=== PATIENT | female | born 1950 | race Caucasian/White ===

== ENCOUNTER 2017-06-17 23:55 | Day surgery (SDC) | payer OTHER ==
[~2017-06-17] VITALS: Ht 163.8 cm; Wt 56.7 kg
[2017-06-18] MEDS ORDERED: THIAMINE INJECTION 100 MG, FOLIC ACID INJECTION 1 MG, VITAMIN MULTI INJECTION 10 ML, MA... IV STA ×5
[2017-06-18] MEDS ORDERED: MAGNESIUM SULFATE 1 GM/2 ML VIAL ONE (00:03)
[2017-06-18] MEDS ORDERED: NS IV 1000 ML 0 ML ONE (00:03)
[2017-06-18] MEDS ORDERED: FOLIC ACID 1 MG/0.2 ML SYR (ED) ONE (00:04)
[2017-06-18] MEDS ORDERED: THIAMINE 100 MG/ML 2 ML (VITAMIN B-1) VIAL ONE (00:04)
[2017-06-18] MEDS ORDERED: D5 1/2 NS W/KCL 20 MEQ/L 1,000 ML IV ONE (00:05)
[2017-06-18] MEDS ORDERED: VITAMIN MULTI- 12 INJECTION 10 ML VIAL IV ONE (00:06)
--- NOTE | 2017-06-18 00:07 | ED Lower Extremity ---
General Chief Complaint: Trauma-Non Activation Stated Complaint: FALL Source: patient, EMS Exam Limitations: no limitations History of Present Illness Time seen by provider: 00:00 Initial Comments Patient present to ER by EMS with chief complaint of just prior to arrival tripping in her backyard falling having a lot of pain in her right lower leg. She is a history of a fracture in her shoulder years ago. No other significant medical history other than blood pressure for which she takes atenolol and amlodipine. She does smoke and she is been drinking tonight she says her last drink was about 3 hours ago however she is quite well controlled with her pain and EMS reports that not had to give her any pain medicine as lungs and move her leg. She has obvious deformity, swelling and crepitus in her right tibia- fibula according to EMS. Allergies and Home Medications Allergies Coded Allergies: No Known Allergies (Verified Allergy, Unknown, 02/19/07) Home Medications Amlodipine Besylate 5 Mg Tablet, 5 MG PO DAILY, (Reported) Lisinopril 20 Mg Tablet, 20 MG PO DAILY, (Reported) Metoprolol Tartrate 25 Mg Tablet, 25 MG PO BID, (Reported) Constitutional: see HPI, No chills, No diaphoresis EENTM: No ear pain, No eye pain Respiratory: No cough, No short of breath Cardiovascular: No chest pain, No palpitations Gastrointestinal: No abdominal pain, No constipation, No diarrhea, No nausea, No vomiting Genitourinary: No discharge, No dysuria : No Control/STD Prophylaxis: None Musculoskeletal: see HPI, No back pain, No joint pain Skin: No pruritus, No rash Psychiatric/Neurological: Denies Headache, Denies Numbness Past Ahyqzug-Cwrudx-Blgbqu Hx Patient Social History Alcohol Use: Regular Use (last drink 3 hours ago) Recreational Drug Use: No Smoking Status: Current Everyday Smoker Type Used: Cigarettes Reproductive System Hx Reproductive Disorders: No Physical Exam Vital Signs Vital Sign - Last 12Hours 06/17/17 23:59 Temp 98.7 Pulse 74 Resp 18 B/P (MAP) 144/105 Pulse Ox 93 Capillary Refill : General Appearance: WD/WN, no apparent distress (pleasant, inebriated) HEENT: PERRL/EOMI, TMs normal, pharynx normal Neck: non-tender, full range of motion, supple, normal inspection Cardiovascular: normal peripheral pulses, regular rate, rhythm, no edema Respiratory: chest non-tender, lungs clear, normal breath sounds Gastrointestinal: non tender, soft Hips: bilateral hip non-tender, bilateral hip normal inspection, bilateral hip normal range of motion Legs: left leg non-tender, left leg normal inspection, left leg normal range of motion, left leg no evidence of injury, right leg bone tenderness, right leg deformity, right leg ecchymosis, right leg pain, right leg soft tissue tenderness, right leg swelling (obvious deformity and crepitus and lateral deviation of the foot.) Knees: bilateral knee non-tender, bilateral knee normal inspection, bilateral knee normal range of motion, bilateral knee no evidence of injury Ankles: bilateral ankle non-tender, bilateral ankle normal inspection, bilateral ankle normal range of motion, bilateral ankle no evidence of injury Feet: bilateral foot non-tender, bilateral foot normal inspection, bilateral foot normal range of motion, bilateral foot no evidence of injury (good pulses and sensation intact) Neurologic/Tendon: normal sensation, normal motor functions, normal tendon functions, responds to pain Neurologic/Psychiatric: no motor/sensory deficits, alert, oriented x 3 Skin: normal color, warm/dry, ecchymosis Progress/Results/Core Measures Results/Orders Lab Results Laboratory Tests Test 06/18/17 00:25 Range/Units My Orders Orders - YVON DANIELS Alcohol (06/18/17 00:00) Cbc With Automated Diff (06/18/17 00:00) Comprehensive Metabolic Panel (06/18/17 00:00) Drug Screen Stat (Urine) (06/18/17 00:00) Magnesium (06/18/17 00:00) Ua Culture If Indicated (06/18/17 00:00) Tibia/Fibula, Right, 2 Views (06/18/17 00:00) Saline Lock/Iv-Start (06/18/17 00:00) Thiamine Injection (Vitamin B-1 Injectio (06/18/17 00:00) Ns Iv 1000 Ml (Sodium Chloride 0.9%) (06/18/17 00:03) Magnesium Sulfate Inj (Magnesium Sulfate (06/18/17 00:03) Folic Acid Syr (Ed) (Folic Acid Syr (Ed) (06/18/17 00:04) Thiamine Injection (Vitamin B-1 Injectio (06/18/17 00:04) D5 1/2 Ns W/Kcl 20 Meq/L (Dextrose 5%/0. (06/18/17 00:05) Vitamin Multi Injection (Mvi 12 Injectio (06/18/17 00:06) Medications Given in ED Current Medications Medications Dose Ordered Sig/Daphne Route Start Time Stop Time Status Last Admin Dose Admin Folic Acid 1 mg STK-MED ONCE .ROUTE 06/18/17 00:04 06/18/17 00:13 DC 06/18/17 00:18 1 MG Magnesium Sulfate 1 gm STK-MED ONCE .ROUTE 06/18/17 00:03 06/18/17 00:13 DC 06/18/17 00:19 2 GM Multivitamins 10 ml STK-MED ONCE IV 06/18/17 00:06 06/18/17 00:13 DC 06/18/17 00:19 10 ML Potassium Chloride/Dextrose/ Sod Cl 1,000 ml @ ud STK-MED ONCE IV 06/18/17 00:05 06/18/17 00:13 DC 06/18/17 00:18 125 MLS/HR Thiamine HCl 200 mg STK-MED ONCE .ROUTE 06/18/17 00:04 06/18/17 00:13 DC 06/18/17 00:18 100 MG Vital Signs/I&O Vital Sign - Last 12Hours 06/17/17 23:59 Temp 98.7 Pulse 74 Resp 18 B/P (MAP) 144/105 Pulse Ox 93 Diagnostic Imaging Diagonstic Imaging: Xray Plain Films/CT/US/NM/MRI: leg (right lower leg) Comments Distal tibia marginally displaced non-open fracture with a proximal fibular shaft fracture nondisplaced. Closed. Reviewed: Reviewed by Me Consults Consults : Consulting Physician: LATANYA ZAMBRANO MD Consults Notes Discussed the case and because the patient's alcohol intoxication he is okay with the splinting her and putting her in under his name and he will come and see her in the morning. Departure Communication Time/Spoke to Admitting Phy: 00:[address] Zambrano. He will see the patient in the morning. Impression Impression: Primary Impression: Tibia/fibula fracture, shaft Qualified Codes: S82.201A - Unspecified fracture of shaft of right tibia, initial encounter for closed fracture; S82.401A - Unspecified fracture of shaft of right fibula, initial encounter for closed fracture Disposition: ADMITTED INPATIENT Condition: Stable Admissions Decision to Admit Reason: Admit from ER (Trauma) Decision to Admit/Date: Jun 18, 2017 Time/Decision to Admit Time: 00:42 Departure-Patient Inst. Referrals: NO,LOCAL PHYSICIAN (PCP/Family) Primary Care Physician Copy Copies To 1: LATANYA ZAMBRANO MD, TITUS J Jun 18, 2017 00:07
[2017-06-18] MEDS ORDERED: LISI-552 PO (00:31)
[2017-06-18] MEDS ORDERED: AMLO5TAB4 PO (00:31)
[2017-06-18] MEDS ORDERED: METO-333 PO (00:32)
[2017-06-18 00:36] LABS: BASOPHILS % (AUTO) 0 % (0-10); EOSINOPHILS % (AUTO) 0 % (0-10); LYMPHOCYTES # (AUTO) 1.3 X 10^3 (1.0-4.0); LYMPHOCYTES % (AUTO) 15 % (12-44); MEAN CORPUSCULAR HEMOGLOBIN 32 PG (25-34); MEAN CORPUSCULAR HGB CONC 35 G/DL (32-36); MEAN CORPUSCULAR VOLUME 92 FL (80-99); MEAN PLATELET VOLUME 9.4 FL (7.4-10.4); MONOCYTES # (AUTO) 0.9 X 10^3 (0.0-1.0); MONOCYTES % (AUTO) 11 % (0-12); NEUTROPHILS # (AUTO) 6.6 X 10^3 (1.8-7.8); NEUTROPHILS % (AUTO) 74 % (42-75); PLATELET COUNT 226 10^3/uL (130-400); RED CELL DISTRIBUTION WIDTH 12.2 % (10.0-14.5); WHITE BLOOD COUNT 8.9 10^3/uL (4.3-11.0)
[2017-06-18 00:37] LABS: BILIRUBIN,URINE NEGATIVE (NEGATIVE); KETONES,URINE NEGATIVE (NEGATIVE); LEUKOCYTE ESTERASE ,URINE 1+ (NEGATIVE); NITRITE,URINE NEGATIVE (NEGATIVE); PH,URINE 6 (5-9); PROTEIN,URINE 1+ (NEGATIVE); UROBILINOGEN,URINE NORMAL (NORMAL)
[2017-06-18 00:51] LABS: SQUAMOUS EPITHELIAL CELL,UR RARE /HPF; WBC,URINE RARE /HPF
[2017-06-18 00:56] LABS: ALANINE AMINOTRANSFERASE 53 U/L (0-55); ALCOHOL 187 MG/DL (<10); ANION GAP 15 MMOL/L (5-14); ASPARTATE AMINO TRANSFERASE 59 U/L (5-34); BILIRUBIN,TOTAL 0.7 MG/DL (0.1-1.0); BLOOD UREA NITROGEN 6 MG/DL (7-18); BUN/CREATININE RATIO 10; CALCIUM 9.1 MG/DL (8.5-10.1); CARBON DIOXIDE 22 MMOL/L (21-32); CHLORIDE 90 MMOL/L (98-107); CREATININE SERUM 0.62 MG/DL (0.60-1.30); GFR ESTIMATED > 60; GLUCOSE 124 MG/DL (70-105); MAGNESIUM 1.4 MG/DL (1.8-2.4); POTASSIUM 3.6 MMOL/L (3.6-5.0); SODIUM 127 MMOL/L (135-145); TOTAL PROTEIN 8.2 GM/DL (6.4-8.2)
[2017-06-18 01:52] LABS: INR 0.9 (0.8-1.4); PROTHROMBIN TIME PATIENT 12.1 SEC (12.2-14.7)
[2017-06-18] MEDS ORDERED: NS IV 1000 ML 1,000 ML ONE (02:32)
[2017-06-18] MEDS ORDERED: 1/2 NS IV SOLUTION 1,000 ML IV PRN (03:57)
[2017-06-18 04:00] VITALS: BP 108/55
[2017-06-18] MEDS ORDERED: ANTACID SUSP 30 ML UDC (MYLANTA) PO PRN (04:00)
[2017-06-18] MEDS ORDERED: NS IV 1000 ML 1,000 ML IV SCH (04:00)
[2017-06-18] MEDS ORDERED: fentaNYL INJECTION 100 MCG/2 ML AMP IV PRN (04:00)
[2017-06-18] MEDS ORDERED: LORazepam INJ 2 MG/ML (ATIVAN) VIAL IV PRN (04:00)
[2017-06-18] MEDS ORDERED: D5 1/2 NS 1000 ML IV SOLUTION 1,000 ML IV PRN (04:00)
[2017-06-18] MEDS ORDERED: ONDANSETRON 4 MG (ZOFRAN) ORAL DISSOLVE TAB SL PRN (04:00)
[2017-06-18] MEDS ORDERED: SENNA W/DOCUSATE (SENOKOT S) TABLET PO PRN (04:00)
[2017-06-18] MEDS ORDERED: ONDANSETRON 4 MG/2 ML (SDV) Z0FRAN IV PRN ×3 (04:00→11:45)
[2017-06-18] MEDS ORDERED: LORazepam INJ 2 MG/ML (ATIVAN) VIAL IM/IV PRN (04:00)
[2017-06-18] MEDS ORDERED: LORazepam 1 MG (ATIVAN) TAB PO PRN (04:00)
[2017-06-18 05:13] LABS: BASOPHILS % (AUTO) 0 % (0-10); EOSINOPHILS % (AUTO) 0 % (0-10); LYMPHOCYTES # (AUTO) 1.1 X 10^3 (1.0-4.0); LYMPHOCYTES % (AUTO) 15 % (12-44); MEAN CORPUSCULAR HEMOGLOBIN 32 PG (25-34); MEAN CORPUSCULAR HGB CONC 35 G/DL (32-36); MEAN CORPUSCULAR VOLUME 92 FL (80-99); MEAN PLATELET VOLUME 9.3 FL (7.4-10.4); MONOCYTES # (AUTO) 1.1 X 10^3 (0.0-1.0); MONOCYTES % (AUTO) 15 % (0-12); NEUTROPHILS # (AUTO) 5.2 X 10^3 (1.8-7.8); NEUTROPHILS % (AUTO) 70 % (42-75); PLATELET COUNT 208 10^3/uL (130-400); RED BLOOD COUNT 3.98 10^6/uL (4.35-5.85); RED CELL DISTRIBUTION WIDTH 12.2 % (10.0-14.5); WHITE BLOOD COUNT 7.4 10^3/uL (4.3-11.0)
[2017-06-18 05:34] LABS: ANION GAP 12 MMOL/L (5-14); BLOOD UREA NITROGEN 5 MG/DL (7-18); BUN/CREATININE RATIO 9; CALCIUM 8.7 MG/DL (8.5-10.1); CARBON DIOXIDE 23 MMOL/L (21-32); CHLORIDE 97 MMOL/L (98-107); CREATININE SERUM 0.57 MG/DL (0.60-1.30); GFR ESTIMATED > 60; GLUCOSE 62 MG/DL (70-105); POTASSIUM 3.3 MMOL/L (3.6-5.0); SODIUM 132 MMOL/L (135-145)
--- NOTE | 2017-06-18 06:50 | Diagnostic Imaging Report ---
EXAM: TIBIA/FIBULA, RIGHT, 2 VIEWS INDICATION: Fall. Right lower extremity pain. COMPARISON: None. FINDINGS: Spiral fracture of the distal right tibial diaphysis with mild lateral displacement of the distal fragment in relation to the proximal. There may also be a small nondisplaced fracture of the distal right fibular metaphysis. Examination acquired through splinting material. Soft tissue shadows are unremarkable. IMPRESSION: 1. Spiral fracture of the distal right tibial metaphysis. 2. Subtle lucency in the distal right fibular metaphysis may represent an additional nondisplaced fracture. This could be better evaluated with CT. Dictated by: Dictated on workstation # [id number]
[2017-06-18 08:00] VITALS: BP 132/71
[2017-06-18] MEDS ORDERED: THIAMINE 100 MG/ML 2 ML (VITAMIN B-1) VIAL IV SCH (09:00)
[2017-06-18] MEDS ORDERED: FOLIC ACID 5MG/ML 10 ML IV SCH (09:00)
[2017-06-18] MEDS ORDERED: THIAMINE INJECTION 100 MG, FOLIC ACID INJECTION 1 MG, VITAMIN MULTI INJECTION 10 ML, MA... IV SCH ×5 (09:38)
--- NOTE | 2017-06-18 10:48 | History & Physicial ---
History of Present Illness History of Present Illness Reason for visit/HPI Fell in yard last night, hurt right leg, denies any other injures. Awake, alert and otherwise without complaints. Date of Admission Jun 18, 2017 at 12:40 am Time Seen by Provider: 10:44 I consulted on this patient on 06/18/17 10:44 Attending Physician Latanya Zambrano MD Admitting Physician Avis Sharma MD Consult LATANYA ZAMBRANO MD Allergies and Home Medications Allergies Coded Allergies: NKANo Known Allergies (Verified Allergy, Unknown, 02/19/07) Home Medications Amlodipine Besylate 5 Mg Tablet, 5 MG PO DAILY, (Reported) Lisinopril 20 Mg Tablet, 20 MG PO DAILY, (Reported) Metoprolol Tartrate 25 Mg Tablet, 25 MG PO BID, (Reported) Past Fpzrnda-Fozgum-Xxkisv Hx Patient Social History Alcohol Use: Regular Use Number of Drinks Today: 6 Alcohol Beverage of Choice: Beer Recreational Drug Use: Yes Drug of Choice: marjuania Smoking Status: Current Everyday Smoker Type Used: Cigarettes Physical Abuse Screen: No Sexual Abuse: No Recent Foreign Travel: No Contact w/other who traveled: No Recent Hopitalizations: No Recent Infectious Disease Expo: No Seasonal Allergies Seasonal Allergies: No Surgeries Yes (TUBAL 88) Tubal Ligation Respiratory No Cardiovascular Yes Hypertension Neurological No Reproductive System Hx Reproductive Disorders: No Genitourinary No Gastrointestinal No Musculoskeletal No Endocrine History of Endocrine Disorders: No HEENT History of HEENT Disorders: No Cancer No Psychosocial History of Psychiatric Problem: No Integumentary History of Skin or Integumenta: No Blood Transfusions History of Blood Disorders: No Constitutional: no symptoms reported EENTM: see HPI Respiratory: no symptoms reported Cardiovascular: no symptoms reported Gastrointestinal: no symptoms reported Genitourinary: no symptoms reported Musculoskeletal: joint pain, joint swelling Skin: no symptoms reported Psychiatric/Neurological: No Symptoms Reported Physical Exam Vital Signs Vital Sign - Last 12Hours 06/17/17 06/18/17 23:59 01:30 Temp 98.7 Pulse 74 Resp 18 B/P (MAP) 144/105 Pulse Ox 93 O2 Delivery Room Air Capillary Refill : Less Than 3 SecondsLess Than 3 Seconds General Appearance: No Apparent Distress, WD/WN Eyes: Bilateral Eye Normal Inspection HEENT: PERRL/EOMI Neck: Full Range of Motion, Normal Inspection, Non Tender Respiratory: Chest Non Tender, No Accessory Muscle Use, No Respiratory Distress Cardiovascular: Regular Rate, Rhythm Gastrointestinal: Non Tender, Soft Rectal: Deferred Back: Normal Inspection, No Vertebral Tenderness Extremity: Other (Splint in place right leg, tenderness with ROM, No pain at knee or hip. Left lower and bilateral upper extremities ok.) Skin: Normal Color Lymphatic: No Adenopathy Comments Xrays demonstrate a right distal 1/3 oblique fracture of tibial shaft and proximal fibula. Assessment/Plan Assessment and Plan Right Closed Tib/Fib factures. Plan: IM nailing, d/w patient and and agree to proceed. Problems: Clinical Quality Measures DVT/VTE Risk/Contraindication: Risk Factor Score Per Nursin RFS Level Per Nursing on Admit: 3=High LATANYA ZAMBRANO MD Jun 18, 2017 10:48 am
[2017-06-18] MEDS ORDERED: ceFAZolin 2 GM/50 ML NS 50 ML IV ONE (11:00)
[2017-06-18] MEDS ORDERED: fentaNYL INJECTION 100 MCG/2 ML AMP ONE ×2 (11:43→12:37)
[2017-06-18] MEDS ORDERED: LIDOCAINE PF 2% 5 ML (XYLOCAINE) VIAL ONE ×2 (11:43→12:35)
[2017-06-18] MEDS ORDERED: proPOfol 200 MG/20 ML (DIPRIVAN) VIAL IV ONE (11:43)
[2017-06-18] MEDS ORDERED: MIDAZOLAM 2 MG/2 ML (VERSED) VIAL ONE (11:44)
[2017-06-18] MEDS ORDERED: MILK OF MAGNESIA 400 MG/5 ML 30 ML UDC PO PRN (11:45)
[2017-06-18] MEDS ORDERED: ACETAMINOPHEN 325 MG TABLET/CAPLET (TYLENOL) PO PRN (11:45)
[2017-06-18] MEDS ORDERED: HYDROcodone/APAP 5 MG/325 MG (LORTAB) TAB PO PRN (11:45)
[2017-06-18] MEDS: LACTATED RINGERS 1,000 ML IV PRN ×2 (11:53→12:37)
[2017-06-18] MEDS ORDERED: GENTAMICIN 40 MG/ML 2 ML INJ SDV ONE (12:30)
[2017-06-18] MEDS ORDERED: DEXAMETHASONE 10 MG/ML (DECADRON) 1 ML VIAL ONE (12:35)
[2017-06-18] MEDS ORDERED: SEVOFLURANE (ULTANE) 15 ML INHAL SOLN ONE ×3 (12:35→13:00)
[2017-06-18] MEDS ORDERED: ESMOLOL 100 MG/10 ML (BREVIBLOC) VIAL ONE (12:35)
[2017-06-18] MEDS ORDERED: ONDANSETRON 4 MG/2 ML (SDV) Z0FRAN ONE ×2 (12:35→12:37)
[2017-06-18] MEDS ORDERED: LACTATED RINGERS 2,000 ML IV ONE (12:36)
[2017-06-18] MEDS ORDERED: HYDROmorphone (DILAUDID) 2 MG/ML VIAL ONE (12:37)
[2017-06-18] MEDS ORDERED: morphine INJ 10 MG/ML 1ML (SYR OR VIAL) ONE (12:37)
[2017-06-18] MEDS ORDERED: PROMETHAZINE INJ 25 MG/ML (PHENERGAN) AMP ONE (12:53)
[2017-06-18] MEDS: THIAMINE INJECTION 100 MG, FOLIC ACID INJECTION 1 MG, MAGNESIUM SULFATE 2 GM, VITAMIN M... IV SCH ×10 (13:18→15:39)
--- NOTE | 2017-06-18 13:21 | Progress Note-Post Operative ---
Post-Operative Progess Note Surgeon (s)/Bar Catcher (s) Surgeon LATANYA JAMES MD Bar Catcher: Victor Manuel Forrester, BINA Pre-Operative Diagnosis Right Closed Tib/Fib Fracture Post-Operative Diagnosis Same Procedure & Operative Findings Date of Procedure 06/18/17 Procedure Performed/Findings Right Tibia IM Nail Anesthesia Type Gen LMA Estimated Blood Loss Estimated blood loss (mL): Min Specimens/Packing Specimens Removed None LATANYA JAMES MD Jun 18, 2017 1:21 pm
--- NOTE | 2017-06-18 13:29 | Diagnostic Imaging Report ---
EXAM: FLUOROSCOPY INDICATION: PINNING COMPARISON: Right tibia and fibula radiographs 06/18/2017. FINDINGS/IMPRESSION: Fluoroscopy used during intramedullary kisha and fixation screw placement across a right tibial fracture. Please see Dr. Paramjit Zambrano report for further details. Fluoroscopy time one minute 44 seconds. Dictated by: Dictated on workstation # [id number]
[2017-06-18] MEDS ORDERED: HYDROmorphone (DILAUDID) 2 MG/ML VIAL IVP PRN (13:30)
[2017-06-18] MEDS ORDERED: fentaNYL INJECTION 100 MCG/2 ML AMP IVP PRN (13:30)
[2017-06-18] MEDS ORDERED: ONDANSETRON 4 MG/2 ML (SDV) Z0FRAN IVP PRN (13:30)
[2017-06-18] MEDS: morphine INJ 10 MG/ML 1ML (SYR OR VIAL) IVP PRN ×2 (13:30→13:40)
[2017-06-18] MEDS ORDERED: PROMETHAZINE INJ 25 MG/ML (PHENERGAN) AMP IVP PRN (13:30)
[2017-06-18 14:45] VITALS: BP 142/72
[2017-06-18 16:00] VITALS: BP 124/71
[2017-06-18] MEDS ORDERED: METO100T2 PO (16:10)
[2017-06-18] MEDS ORDERED: AMLO10TA2 PO (16:10)
[2017-06-18] MEDS: NS IV 1000 ML 1,000 ML IV SCH (18:41)
[2017-06-18 20:00] VITALS: BP 115/70
[2017-06-18] MEDS: ENOXAPARIN 30 MG/0.3 ML (LOVENOX) SYR SC SCH (20:08)
[2017-06-18] MEDS: DOCUSATE SODIUM 100 MG (COLACE) CAP PO SCH (21:37)
[2017-06-18 23:30] VITALS: BP 126/72
[2017-06-19 03:50] VITALS: BP 142/72
[2017-06-19] MEDS: NS IV 1000 ML 1,000 ML IV SCH (04:29)
--- NOTE | 2017-06-19 05:16 | OPERATIVE REPORT ---
DATE OF SERVICE: 06/18/2017 PREOPERATIVE DIAGNOSIS: Right closed displaced tibial and fibular fracture. POSTOPERATIVE DIAGNOSIS: Right closed displaced tibial and fibular fracture. PROCEDURE PERFORMED: Right intramedullary nailing of tibia fracture. DATE AND TIME OF SURGERY: Please see anesthesia record. IMPLANTS USED: Tatiana [employer]ynthes size 10, 315 mm tibial nail with locking screws and end cap. SURGEON: Latanya Zambrano MD BASS VIOL REPAIRER: LEONARDO Denton ROLE OF MANAGER OF ENGINEERING: To aid in fracture reduction, aid in implantation, instrumentation and wound closure. ANESTHESIA: General LMA. ESTIMATED BLOOD LOSS: Minimal. TOURNIQUET TIME: Less than an hour. COMPLICATIONS: None. INDICATIONS FOR PROCEDURE: The patient is a 66-year-old female who broke her leg last night. Risks, benefits and alternatives were discussed and she would like to proceed with the operation. DESCRIPTION OF PROCEDURE: The patient seen in the preoperative holding area, brought back to the operating suite. After induction of general anesthesia, preoperative antibiotics, placed supine on the OR table. Sterile prep and drape of right lower extremity. The leg was elevated, tourniquet raised, right medial parapatellar incision down to the tibial tubercle was made. A guidepin was placed, the starting awl was placed, reamers were performed with sequential reaming up to a size 11 where chatter was achieved. Once appropriate reaming had been performed, a size 10, 315 mm tibial nail was placed over a guidewire into satisfactory position distally to the physeal scar. Proximal locking screws were placed in a medial lateral position and then distally; 2 medial lateral screws and 1 anterior posterior oblique screw were placed for additional fixation. The fracture site was reduced satisfactorily. Wounds were copiously irrigated, closed in layers. The patient was transferred to the recovery room in stable condition, tolerated the procedure well. Job ID: [id number] DocumentID: [id number] Dictated Date: 06/18/2017 13:18:59 Machine Sweeper Brush Maker Date: 06/19/2017 05:14:53 Dictated By: LATANYA ZAMBRANO MD
[2017-06-19 08:00] VITALS: BP 140/75
[2017-06-19] MEDS ORDERED: lisINopril 20 MG (ZESTRIL) TAB PO SCH (09:00)
[2017-06-19] MEDS ORDERED: amLODIPine 10 MG (NORVASC) TAB PO SCH (09:00)
[2017-06-19] MEDS ORDERED: meTOprolol TARTRATE 50 MG (LOPRESSOR) TAB PO SCH (09:00)
--- NOTE | 2017-06-19 09:03 | Anesthesia-General Post-Op ---
General Patient Condition Mental Status/LOC: Same as Preop Cardiovascular: Satisfactory Nausea/Vomiting: Absent Respiratory: Satisfactory Pain: Controlled Complications: Absent Post Op Complications Complications None Follow Up Care/Instructions Patient Instructions None needed. Anesthesia/Patient Condition Patient Condition Patient is doing well, no complaints, stable vital signs, no apparent adverse anesthesia problems. No complications reported per nursing. KENNY ABDULLAHI CRNA Jun 19, 2017 09:03
--- NOTE | 2017-06-19 09:22 | Consultation-Hospitalist ---
HPI History of Present Illness: HPI/Chief Complaint CC: Fall while intoxicated along with marijuana use sustaining right tib-fib fracture s/p repair per Dr Zambrano uncomplicated POD # 1 HPI: This is a 66-year-old white female that he acknowledges the fact that she does drink too much alcohol on a regular basis and smokes with a past medical history of hypertension who sees Dr. Sharma on a regular basis the presents to the ER after falling in her backyard while intoxicated with blood alcohol level of 187 and marijuana use on UDS sustaining a right tib-fib fracture that was repaired in an uncomplicated manner by Dr. Zambrano. She currently is about to work with physical therapy and she will need a walker and that order was placed and she denies any other significant problems. I did tell her to be sure to take a stool softener to maintain bowel function to avoid narcotic bowel upon discharge. Her last BM was the day of admission. I did college counselor her to stop smoking and alcohol use. 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 She did have a hx of right shoulder fracture in the past while intoxicated. Source: patient Exam Limitations: no limitations Date Seen 06/19/17 Attending Physician Latanya Zambrano MD PCP Avis Sharma MD Referring Physician LATANYA ZAMBRANO MD Date of Admission Jun 18, 2017 at 00:40 Home Medications & Allergies Home Medications Reviewed patient Home Medication Reconciliation Form Allergies Allergies Coded Allergies NKANo Known Allergies (Verified Allergy, Unknown, 02/19/07) Past Rqwmiol-Yuguab-Ikosfi Hx Patient Social History Employed/Student: employed (rn physician office [employer]) Alcohol Use: Regular Use Number of Drinks Today: 6 Alcohol Beverage of Choice: Beer Recreational Drug Use: Yes Drug of Choice: marjuania Smoking Status: Current Everyday Smoker Type Used: Cigarettes Physical Abuse Screen: No Sexual Abuse: No Recent Foreign Travel: No Contact w/other who traveled: No Recent Hopitalizations: No Recent Infectious Disease Expo: No Seasonal Allergies Seasonal Allergies: No Surgeries Yes (TUBAL 88) Tubal Ligation Respiratory No Cardiovascular Yes Hypertension Neurological No Reproductive System Hx Reproductive Disorders: No Genitourinary No Gastrointestinal No Musculoskeletal No Endocrine History of Endocrine Disorders: No HEENT History of HEENT Disorders: No Cancer No Psychosocial History of Psychiatric Problem: No Integumentary History of Skin or Integumenta: No Blood Transfusions History of Blood Disorders: No Review of Systems Constitutional: see HPI EENTM: no symptoms reported Respiratory: no symptoms reported Cardiovascular: no symptoms reported Gastrointestinal: no symptoms reported Genitourinary: no symptoms reported Musculoskeletal: joint pain (right leg) Psychiatric/Neurological: No Symptoms Reported All Other Systems Reviewed Negative Unless Noted: Yes Physical Exam Physical Exam Vital Signs Vital Sign - Last 12Hours 06/17/17 06/18/17 06/18/17 23:59 01:30 14:40 Temp 98.7 Pulse 74 Resp 18 B/P (MAP) 144/105 Pulse Ox 93 O2 Delivery Room Air O2 Flow Rate 3.00 Capillary Refill : NONELess Than 3 Seconds General Appearance: No Apparent Distress, WD/WN, Chronically ill, Thin Eyes: Bilateral Eye Normal Inspection, Bilateral Eye PERRL HEENT: PERRL/EOMI, Normal ENT Inspection, Pharynx Normal Neck: Full Range of Motion, Normal Inspection, Non Tender, Supple, Carotid Bruit Respiratory: Chest Non Tender, Lungs Clear, Normal Breath Sounds, No Accessory Muscle Use, No Respiratory Distress Cardiovascular: Regular Rate, Rhythm, No Edema, No Gallop, No JVD, No Murmur, Normal Peripheral Pulses Gastrointestinal: Normal Bowel Sounds, No Organomegaly, No Pulsatile Mass, Non Tender, Soft Back: Normal Inspection, No CVA Tenderness, No Vertebral Tenderness Extremity: Normal Capillary Refill, Normal Inspection, Normal Range of Motion ( except right lower leg), Non Tender, No Calf Tenderness, No Pedal Edema Neurologic/Psychiatric: Alert, Oriented x3, No Motor/Sensory Deficits, Normal Mood/Affect Skin: Normal Color, Warm/Dry Lymphatic: No Adenopathy Results Results/Procedures Lab Laboratory Tests 06/18/17 00:25 06/18/17 04:56 Assessment/Plan Admission Diagnosis Assessment: Status post acute right tib-fib fracture repaired in an uncomplicated manner POD # 1 Alcoholism Smoker Hypokalemia acute Hypertension Assessment and Plan Plan: Pain medication Walker order Physical therapy Close follow-up Cease smoking and alcohol use Clinical Quality Measures DVT/VTE Risk/Contraindication: Risk Factor Score Per Nursin RFS Level Per Nursing on Admit: 3=High ROMEL ELIZONDO DO Jun 19, 2017 09:22
[2017-06-19] MEDS ORDERED: KCL 20 MEQ TAB (K-DUR) PO NR (09:30)
[2017-06-19] MEDS ORDERED: HYDR-3812 PO (09:31)
[2017-06-19] MEDS ORDERED: ASPI-586 PO ×2 (09:35→12:01)
[2017-06-19] MEDS ORDERED: DOCU-143 PO (09:35)
[2017-06-19] MEDS: ENOXAPARIN 30 MG/0.3 ML (LOVENOX) SYR SC SCH (09:40)
[2017-06-19] MEDS: DOCUSATE SODIUM 100 MG (COLACE) CAP PO SCH (09:40)
--- NOTE | 2017-06-19 09:43 | Physical Therapy Evaluation ---
PT Evaluation-General Medical Diagnosis Admission Date Jun 18, 2017 at 00:40 Medical Diagnosis: right tib/fib fracture Onset Date: Jun 18, 2017 Therapy Diagnosis Therapy Diagnosis: debility Height/Weight Height (Feet): 5 Height (Inches): 4.50 Weight (Pounds): 125 Precautions Precautions/Isolations: Standard Precautions Weight Bear Status Weight Bearing Restriction: Weight Bearing/Tolerated Location Restriction: R LE Referral Physician: Juan Manuel Reason for Referral: Evaluation/Treatment Medical History Pertinent Medical History: HTN, Smoking Additional Medical History unremarkable Current History fall in back yard resulting in right tib/fib fracture Reviewed History: Yes Social History Home: Single Level Current Living Status: Spouse Entry Into Home: Stairs With Railing PT Steps Into Home: 3 Prior/Core FIM Prior Level of Function Functional Willacy Measure 0=Not Assessed/NA 4=Minimal Assistance 1=Total Assistance 5=Supervision or Setup 2=Maximal Assistance 6=Modified Willacy 3=Moderate Assistance 7=Complete Willacy Bed Mobility: 7 Transfers (B,C,W/C) (FIM): 7 Gait: 7 Locomotion: 7 works outside the home PT Evaluation-Current Subjective Patient agrees to PT. Pain Numeric Pain Scale: 5-Moderate Pain Location: Right Location Body Site: Calf Pain Description: Acute Objective Patient Orientation: Normal For Age Problem Solving: Good Attachments: IV ROM/Strength ROM Lower Extremities left LE WNL right LE WNL with patient guarding knee and ankle ROM due to pain Strenght Lower Extremities left LE WNL right LE no formal testing due to surgery site and soft dressing Integumentary/Posture Integumentary refer to nursing notes Bowel Incontinence: No Bladder Incontinence: No Posture WNL Neuromuscular (Tone, Coordination, Reflexes) grossly intact with all Sensory Vision: Functional Hearing: Functional Hand Dominance: Right Sensation Right Lower Extremit: Intact Sensation Left Lower Extremity: Intact Transfers Functional Willacy Measure 0=Not Assessed/NA 4=Minimal Assistance 1=Total Assistance 5=Supervision or Setup 2=Maximal Assistance 6=Modified Willacy 3=Moderate Assistance 7=Complete Willacy Transfers (B, C, W/C) (FIM): 6 Scootin Rollin Supine to/from Sit: 6 Sit to/from Stand: 6 Gait Mode of Locomotion: Walk Anticipated Mode of Locomotion: Walk Gait (FIM): 5 Distance (FIM): 3=150 ft Distance: 200' Gait Level of Assist: 5 Gait Assistive Device: FWW Comments/Gait Description slow, antalgic with step to gait sequence leading with right LE Stairs Stairs (FIM): 2 #of Steps: 4 Level of Assist: 5 Assistive Device: Walker use of 1 hand rail and spouse present to assist and train Balance Sitting Static: Normal Sitting Dynamic: Normal Standing Static: Normal Standing Dynamic: Normal Assessment/Needs 66 y.o. female, will benefit from short term skilled PT to address functional mobility with use of FWW to return to home safely with spouse at maximum LOF. Patient is safe with stair training and ambulation with FWW. Rehab Potential: Good PT Mcfp Goals Fuel Handler Goals PT Fuel Handler Goals Time Frame: Jun 21, 2017 Transfers (B,C,W/C) (FIM): 6 Gait (FIM): 6 Gait distance (FIM): 3=150 ft Gait Level of Assist: 6 Gait Assistive Device: FWW PT Plan Treatment/Plan Treatment Plan: Continue Plan of Care Treatment Plan: Education, Gait, Safety Treatment Duration: Jun 21, 2017 Frequency: Daily Estimated Hrs Per Day: .25 hour per day Patient and/or Family Agrees t: Yes Safety Risks/Education Patient Education: Gait Training, Steps Teaching Recipient: Patient, Significant Other Teaching Methods: Demonstration, Discussion Response to Teaching: Verbalize Understanding, Return Demonstration Discharge Recommendations Therapy D/C Recommendations: Home w/ Family Support Equpiment Recommendations-D/C: Front Wheeled Walker Time/GCodes Time In: 900 Time Out: 925 Total Billed Treatment Time: 25 Total Billed Treatment 1 visit EVModC 25 min G Codes Necessary: ESTEFANY Terry PT Jun 19, 2017 09:43
[2017-06-19 12:00] VITALS: BP 136/74
--- NOTE | 2017-06-19 12:43 | Discharge Summary ---
Diagnosis/Chief Complaint Date of Admission Jun 18, 2017 at 00:40 Date of Discharge Discharge Date: Jun 19, 2017 Admission Diagnosis Admission Diagnosis Right Closed Tib/Fib factures. Plan: IM nailing, d/w patient and and agree to proceed. Discharge Diagnosis right tib fib fracture Reason Hospital Visit ORIF right tibia via IM nail Discharge Summary Hospital Course Hospital Course Lesley was admitted to the hospital for right tib/fib fracture after a fall. She underwent tibial nail and tolerated this well. Her pain was controlled and she was ambulating with PT. Labs Laboratory Tests 06/18/17 00:25: Red Blood Count 4.20L, Prothrombin Time 12.1L, Urine Specific [place] 1.010L, Urine Protein 1+H, Urine Leukocyte Esterase 1+H, Sodium Level 127L, Chloride Level 90L, Anion Gap 15H, Blood Urea Nitrogen 6L, Glucose Level 124H, Magnesium Level 1.4L, Aspartate Amino Transf (AST/SGOT) 59H, Alkaline Phosphatase 138H, Urine Cannabinoids Screen POSITIVEH, Serum Alcohol 187H 06/18/17 04:56: Red Blood Count 3.98L, Sodium Level 132L, Chloride Level 97L, Blood Urea Nitrogen 5L, Glucose Level 62L, Monocytes (%) (Auto) 15H, Monocytes # (Auto) 1.1H, Potassium Level 3.3L, Creatinine 0.57L Procedures None. Discharge Physical Examination Allergies: Coded Allergies: NKANo Known Allergies (Verified Allergy, Unknown, 02/19/07) Vitals & I&Os Vital Signs Date Time Temp Pulse Resp B/P (MAP) Pulse Ox O2 Delivery O2 Flow Rate FiO2 06/19/17 08:00 98.9 71 20 140/75 97 Nasal Cannula 1.00 General Appearance: Alert, Oriented X3, No Acute Distress HEENT: Atraumatic Extremities: No Clubbing, No Cyanosis, No Edema, Normal Pulses Skin: No Rashes, Other (rle bandaged) Neuro: Normal Gait, Normal Speech Discussion & Recommendations patient is stable, pain is controlled and she is being dismissed home to follow up with Dr Zambrano in clinic in 1-2 weeks non weight bearing to rle during this time. Discharge Home Medications Reviewed and agree with Discharge Medication list on patient's Discharge Instruction sheet Instructions to Patient/Family Please see electonic discharge instructions given to patient. Clinical Quality Measures DVT/VTE Risk/Contraindication: Risk Factor Score Per Nursin RFS Level Per Nursing on Admit: 3=High SHLOMO MULLINS Jun 19, 2017 12:43
[2017-06-19 13:54] VITALS: BP 136/74
== END 2017-06-19 13:00 | disposition home or self-care (01) ==
LOC: EDUNIT# 23:55 → ER 23:56 → 4TH 06-18 00:40 → UNDOADMOB 06-18 00:40 → 4TH 06-18 01:26 → SDC 06-18 01:26 → UNDODISOB 06-19 13:00 → SDC 06-19 13:00
PROVIDERS: ATTEND Orthopaedic Surgery Orthopaedic Surgery of the Spine
DX: S82.201A Unspecified fracture of shaft of right tibia, initial encounter for closed fracture (principal); E87.6 Hypokalemia; I10 Essential (primary) hypertension; F17.210 Nicotine dependence, cigarettes, uncomplicated; F10.129 Alcohol abuse with intoxication, unspecified; Y90.6 Blood alcohol level of 120-199 mg/100 ml; F12.90 Cannabis use, unspecified, uncomplicated; W22.8XXA Striking against or struck by other objects, initial encounter; Y92.017 Garden or yard in single-family (private) house as the place of occurrence of the external cause
CPT/HCPCS: 29505; 36415; 73590; 80048; 80053; 80306; 80320; 81000; 83735; 85025; 85610; 85730; 87081; 94664; 96360

== ENCOUNTER → 2019-11-11 | Outpatient (CLI) | payer OTHER ==
[~2019-11-11] MED LIST: ACHD5005 PO; AMLO10TA7 PO; AMLO5TAB4 PO; ASPI-586 PO; DOCU-143 PO; LISI-552 PO; METO-333 PO; METO100T12 PO
[2019-11-11 15:54] LABS: ABSOLUTE RETIC # 60 10e9/L (24-90); RETICULOCYTE % 1.35 % (0.50-2.40)
[2019-11-11 16:21] LABS: BAND NEUTROPHILS 3 %; EOSINOPHILS % (MANUAL) 1 %; LYMPHOCYTES % (MANUAL) 17 %; MONOCYTES % (MANUAL) 28 %; NEUTROPHILS % (MANUAL) 51 %; RBC MORPH NORMAL; TOXIC GRANULATION/VACUOLAZATIO 1+
[2019-11-12 06:50] LABS: HEMATOCRIT 42 % (35-52); HEMOGLOBIN 14.1 G/DL (11.5-16.0); MEAN CORPUSCULAR HEMOGLOBIN 32 PG (25-34); MEAN CORPUSCULAR HGB CONC 34 G/DL (32-36); MEAN CORPUSCULAR VOLUME 97 FL (80-99); PLATELET COUNT 99 10^3/uL (130-400); RED CELL DISTRIBUTION WIDTH 12.5 % (10.0-14.5); WHITE BLOOD COUNT 8.1 10^3/uL (4.3-11.0)
[2019-11-12 06:51] LABS: BASOPHILS % (AUTO) 0 % (0-10); EOSINOPHILS # (AUTO) 0.1 10^3/uL (0.0-0.3); EOSINOPHILS % (AUTO) 1 % (0-10); LYMPHOCYTES # (AUTO) 1.4 X 10^3 (1.0-4.0); LYMPHOCYTES % (AUTO) 17 % (12-44); MONOCYTES # (AUTO) 1.6 X 10^3 (0.0-1.0); MONOCYTES % (AUTO) 20 % (0-12); NEUTROPHILS % (AUTO) 62 % (42-75)
== END ==
LOC: LABNPT 15:41
PROVIDERS: ATTEND Family Medicine
DX: B18.2 Chronic viral hepatitis C (principal); F10.10 Alcohol abuse, uncomplicated; D69.59 Other secondary thrombocytopenia; R94.5 Abnormal results of liver function studies; N39.0 Urinary tract infection, site not specified
CPT/HCPCS: 85007; 85045

== ENCOUNTER 2022-05-30 12:12 | Emergency (ER) | payer MEDICARE ==
[~2022-05-30] VITALS: Ht 165.1 cm; Wt 50.3 kg
[~2022-05-30 12:12] MED LIST changes: +AMLO-251 PO; -AMLO10TA7 PO; -LISI-552 PO; +LISI20TA26 PO
[2022-05-30] MEDS ORDERED: CYCLOBENZAPRINE 10 MG (FLEXERIL) TAB PO STA (13:02)
--- NOTE | 2022-05-30 13:05 | ED Back Pain ---
General Chief Complaint: Hip/Pelvic Problems Stated Complaint: BACK PAIN Source of Information: Patient Exam Limitations: No Limitations History of Present Illness Date Seen by Provider: May 30, 2022 Time Seen by Provider: 12:15 Initial Comments 71-year-old female with past medical history of hypertension and tobacco use coming in due to left lower back pain. Been going on for over a month, its every day, constant, aching, worse with any twisting or bending. She says it started after she picked something up that was not agreeable to her. Denies any weakness, numbness, bowel or bladder issue, falls, or any trauma. She is otherwise denying any other acute complaints. She saw her chiropractor 3 weeks ago which did not help. She has not seen her regular doctor yet. Took ibuprofen a couple hours ago which did help. She also took one of her husbands gabapentin which also helped Allergies and Home Medications Allergies Coded Allergies: Sasha Known Allergies (Verified Allergy, Unknown, 02/19/07) Patient Home Medication List Home Medication List Reviewed: Yes Amlodipine Besylate (Amlodipine Besylate) 10 Mg Tablet, 10 MG PO DAILY, (Reported) Entered as Reported by: NIK GARNICA on 06/18/17 1610 Aspirin (Aspir 81) 81 Mg Tablet.dr, 325 MG PO BID Prescribed by: SHLOMO MULLINS on 06/19/17 1201 Cyclobenzaprine HCl (Cyclobenzaprine HCl) 10 Mg Tablet, 10 MG PO Q8H PRN for SPASMS Prescribed by: PENELOPE RAHMAN on 05/30/22 1348 Docusate Sodium (Colace) 100 Mg Capsule, 100 MG PO BID Prescribed by: ROMEL ELIZONDO on 06/19/17 0935 Gabapentin (Gabapentin) 100 Mg Capsule, 100 MG PO Q8H Prescribed by: PENELOPE RAHMAN on 05/30/22 1348 Hydrocodone Bit/Acetaminophen (Lortab 5 Mg Tablet) 1 Each Tablet, 1-2 TAB PO Q4H PRN for PAIN-MODERATE TO SEVERE Prescribed by: ROMEL ELIZONDO on 06/19/17 0931 Lisinopril (Lisinopril) 20 Mg Tablet, 40 MG PO DAILY, (Reported) Entered as Reported by: MICHAELA ACEVES on 06/18/17 0031 Metoprolol Tartrate (Metoprolol Tartrate) 100 Mg Tablet, 200 MG PO BID, (Reported) Entered as Reported by: NIK GARNICA on 06/18/17 1610 Sulfamethoxazole/Trimethoprim (Bactrim Ds Tablet) 1 Each Tablet, 1 EACH PO BID Prescribed by: PENELOPE RAHMAN on 05/30/22 1358 Review of Systems Constitutional: No fever EENTM: No blurred vision Respiratory: No cough Cardiovascular: No chest pain Gastrointestinal: no symptoms reported Genitourinary: No decreased output Musculoskeletal: back pain Skin: no symptoms reported Psychiatric/Neurological: No Symptoms Reported All Other Systems Reviewed Negative Unless Noted: Yes Past Xgocikf-Elykqm-Hhmbnk Hx Patient Social History Tobacco Use?: Yes Tobacco type used: Cigarettes Seasonal Allergies Seasonal Allergies: No Past Medical History Surgeries: Yes (TUBAL 88) Tubal Ligation Respiratory: No Cardiac: Yes Hypertension Neurological: No Reproductive Disorders: No Genitourinary: No Gastrointestinal: No Musculoskeletal: No Endocrine: No HEENT: No Cancer: No Psychosocial: No Integumentary: No Blood Disorders: No Physical Exam Vital Signs Vital Signs - First Documented 05/30/22 12:52 Temp 37.0 Pulse 73 Resp 14 B/P (MAP) 169/97 (121) Pulse Ox 93 O2 Delivery Room Air Capillary Refill : Height, Weight, BMI Height: 5'4.50" Weight: 125lbs. oz. 56.906971fl; BMI Method:Stated General Appearance: No Apparent Distress, WD/WN HEENT: PERRL/EOMI, Normal ENT Inspection, Pharynx Normal Neck: Full Range of Motion, Normal Inspection, Non Tender, Supple Cardiovascular: Regular Rate, Rhythm, No Edema, Normal Peripheral Pulses Respiratory: Chest Non Tender, Lungs Clear, Normal Breath Sounds, No Accessory Muscle Use, No Respiratory Distress Gastrointestinal: Normal Bowel Sounds, Non Tender, Soft; No Distended, No Guarding, No Hepatomegaly Back: Normal Inspection, No CVA Tenderness, No Vertebral Tenderness, Other (Paraspinal tenderness on the left, negative straight leg test, normal neurovascular exam distal, 5 out of 5 strength with hip flexion, hip extension, knee flexion, knee extension, foot dorsiflexion and plantarflexion) Extremity: Normal Capillary Refill, Normal Inspection, Normal Range of Motion, Non Tender, No Calf Tenderness, No Pedal Edema, Other (No pain with logroll or any type of range of motion with the hip, no pain with palpation in the hip) Neurologic/Psychiatric: Alert, No Motor/Sensory Deficits, Normal Mood/Affect Skin: Normal Color, Warm/Dry Lymphatic: No Adenopathy Progress/Results/Core Measures Results/Orders Lab Results Laboratory Tests Test 05/30/22 13:25 Range/Units Urine Color YELLOW Urine Clarity SL CLOUDY Urine pH 6.0 5-9 Urine Specific [place] 1.020 1.016-1.022 Urine Protein TRACE H NEGATIVE Urine Glucose (UA) NEGATIVE NEGATIVE Urine Ketones NEGATIVE NEGATIVE Urine Nitrite NEGATIVE NEGATIVE Urine Bilirubin NEGATIVE NEGATIVE Urine Urobilinogen 1.0 < = 1.0 MG/DL Urine Leukocyte Esterase 1+ H NEGATIVE Urine RBC (Auto) 1+ H NEGATIVE Urine RBC RARE /HPF Urine WBC RARE /HPF Urine Squamous Epithelial Cells RARE /HPF Urine Crystals NONE /LPF Urine Bacteria NEGATIVE /HPF Urine Casts NONE /LPF Urine Mucus NEGATIVE /LPF Urine Culture Indicated NO My Orders Orders - PENELOPE RAHMAN MD Lumbar Spine - 2-3 Views (05/30/22 13:02) Gabapentin Capsule/Tablet (Neurontin Cap (05/30/22 13:15) Cyclobenzaprine Tablet (Flexeril Tablet) (05/30/22 13:02) Acetaminophen Tablet (Tylenol Tablet) (05/30/22 13:15) Medications Given in ED Current Medications Medications Dose Ordered Sig/Daphne Route Start Time Stop Time Status Last Admin Dose Admin Acetaminophen 1,000 mg ONCE ONCE PO 05/30/22 13:15 05/30/22 13:16 DC 05/30/22 13:13 1,000 MG Gabapentin 300 mg ONCE ONCE PO 05/30/22 13:15 05/30/22 13:16 DC 05/30/22 13:46 300 MG Vital Signs/I&O 05/30/22 12:52 Temp 37.0 Pulse 73 Resp 14 B/P (MAP) 169/97 (121) Pulse Ox 93 O2 Delivery Room Air Progress Progress Note : Progress Note 71-year-old female with above history coming in due to low back pain. ABCs were intact and vitals were stable on presentation. Physical exam reassuring including no midline tenderness, no history of trauma, normal neurovascular exam. She is able to walk without difficulty. Given the chronicity of this, it is unlikely that is something more severe such as a AAA rupture. Bending and twisting reproduces her symptoms almost identically. Given gabapentin here and Flexeril given those have helped in the past. X-ray of the lumbar spine ordered. There is an old appearing compression deformity over L1. She has no pain over this site to palpation. I will have her follow-up with orthopedics as an outpatient. I believe she is stable for discharge with outpatient follow-up. She was sent home with strict return precautions. Of note, the patient has had a smoking history for a long time and has a body habitus of someone with COPD. Her oxygen hovered between 90% and 92% with no significant distress. This is likely her baseline. Diagnostic Imaging Diagonstic Imaging: Xray (lumbar spine) Comments NAME: BHAVESH BUCIO MED REC#: [id number] PT STATUS: REG ER : 1950 PHYSICIAN: PENELOPE RAHMAN MD ADMIT DATE: 05/30/22/ER Draft Date of Exam:05/30/22 LUMBAR SPINE - 2-3 VIEWS INDICATION: Back pain. COMPARISON: I have no priors. FINDINGS: An L1 mild vertebral endplate compression deformity is sclerotically marginated and may very well be old; however, if there is new upper lumbar pain referable to that level, consider followup with MRI to see if there is marrow edema. The remaining lumbar statures are normal. There is centeno-lumbar spondylosis and facet arthrosis. IMPRESSION: Acuity indeterminate L1 vertebral endplate compression deformity, chronic degenerative changes, and bony demineralization are noted. Dictated on workstation # [id number] Dict: 05/30/22 1358 Trans: 05/30/22 1402 [id number] Interpreted by: IFEANYI BLACKMON Electronically signed by: Departure Impression Primary Impression: Low back pain Qualified Codes: M54.50 - Low back pain, unspecified Disposition: 01 HOME, SELF-CARE Condition: Stable Departure-Patient Inst. Decision time for Depature: 13:55 Referrals: RACHID BALDWIN MD (PCP/Family) Primary Care Physician SNEHA MARIE MD Patient Instructions: Low Back Pain ED Add. Discharge Instructions: Take Tylenol and ibuprofen as needed for pain. We also sent in a muscle relaxer and the gabapentin to your pharmacy. Follow-up with the orthopedic doctor, Dr. Marie or Audi here in [place] for evaluation and potential referral for physical therapy. Your urine did look like there could be slight infection so we will start you on an antibiotic as well to cover for this. Scripts Sulfamethoxazole/Trimethoprim (Bactrim Ds Tablet) 1 Each Tablet 1 EACH PO BID for 5 Days, #10 TAB Prov: PENELOPE RAHMAN MD 05/30/22 Cyclobenzaprine HCl (Cyclobenzaprine HCl) 10 Mg Tablet 10 MG PO Q8H PRN for SPASMS for 5 Days, #15 TAB 0 Refills Prov: PENELOPE RAHMAN MD 05/30/22 Gabapentin (Gabapentin) 100 Mg Capsule 100 MG PO Q8H for Neuropathic pain for 14 Days, #42 CAP Prov: PENELOPE RAHMAN MD 05/30/22 Work/School Note: Work Release Form Date Seen in the Emergency Department: May 30, 2022 Return to Work: May 31, 2022 Restrictions: No Restrictions PENELOPE RAHMAN MD May 30, 2022 13:05
[2022-05-30] MEDS ORDERED: GABAPENTIN 100 MG (NEURONTIN) CAP PO ONE (13:15)
[2022-05-30] MEDS ORDERED: ACETAMINOPHEN 500 MG TAB (TYLENOL) PO ONE (13:15)
[2022-05-30 13:34] LABS: BILIRUBIN,URINE NEGATIVE (NEGATIVE); CLARITY,URINE SL CLOUDY; COLOR,URINE YELLOW; GLUCOSE, URINE (UA) NEGATIVE (NEGATIVE); KETONES,URINE NEGATIVE (NEGATIVE); LEUKOCYTE ESTERASE ,URINE 1+ (NEGATIVE); NITRITE,URINE NEGATIVE (NEGATIVE); PROTEIN,URINE TRACE (NEGATIVE)
[2022-05-30] MEDS ORDERED: CYCL10TA25 PO (13:48)
[2022-05-30] MEDS ORDERED: GABA-486 PO (13:48)
[2022-05-30 13:54] LABS: BACTERIA,URINE NEGATIVE /HPF; RBC,URINE RARE /HPF; SQUAMOUS EPITHELIAL CELL,UR RARE /HPF; WBC,URINE RARE /HPF
[2022-05-30] MEDS ORDERED: SULF1TAB38 PO (13:58)
--- NOTE | 2022-05-30 14:03 | Diagnostic Imaging Report ---
INDICATION: Back pain. COMPARISON: I have no priors. FINDINGS: An L1 mild vertebral endplate compression deformity is sclerotically marginated and may very well be old; however, if there is new upper lumbar pain referable to that level, consider followup with MRI to see if there is marrow edema. The remaining lumbar statures are normal. There is centeno-lumbar spondylosis and facet arthrosis. IMPRESSION: Acuity indeterminate L1 vertebral endplate compression deformity, chronic degenerative changes, and bony demineralization are noted. Dictated by: Dictated on workstation # [id number]
[2022-05-30 14:04] VITALS: BP 132/85
== END 2022-05-30 14:04 | disposition home or self-care (01) ==
LOC: EDUNIT# 12:12 → ER 12:14
DX: M54.50 Low back pain, unspecified (principal); F17.210 Nicotine dependence, cigarettes, uncomplicated
CPT/HCPCS: 72100; 81000

== ENCOUNTER 2022-06-25 09:49 | Inpatient (IN) | payer MEDICARE ==
[~2022-06-25] VITALS: Ht 165.1 cm; Wt 50.3 kg
[~2022-06-25 09:49] MED LIST changes: +CYCL10TA25 PO; +GABA-486 PO; +SULF1TAB38 PO
--- NOTE | 2022-06-25 10:53 | ED General ---
General Chief Complaint: General Problems/Pain Stated Complaint: WEAKNESS Source of Information: Patient, Caregiver Exam Limitations: No Limitations (PHILOMENA AGARWAL MED STUDENT) History of Present Illness Date Seen by Provider: Jun 25, 2022 Time Seen by Provider: 10:45 Initial Comments Lesley Paez is a 71 yo female who presented via EMS for weakness and back pain. Pt has hx of HTN and Hep C with treatment 2 yrs ago. Pt reports she has had back pain since the end of April which she rates as an 06/01. She came to ED on 05/30 and had imaging that showed acuity indeterminate L1 vertebral endplate compression deformity, chronic degenerative changes, and bony demineralization, so she was referred to physical therapy and sent home with cyclobenzaprine and gabapentin. Pt reports the pain has only worsened since starting PT. She went from being able to walk on her own to using a walker and needing assistance with ADLs. In addition, she has had SOA and weakness since that visit. The SOA and debilitation caused pt to seek medical treatment today. Pt reports the back pain is constant and radiates to her abdomen. She reports constipation and dark sticky stools without visible blood. reports she has decreased appetite and 15 lbs weight loss in the last month as well. Pt denies fever, chills, CP, cough, dysuria, urinary frequency, N/V/D, numbness and skin changes. Pt reports she stopped drinking ETOH and smoking tobacco 5 mo ago. Pt denies any drug use. Timing/Duration: Getting Worse Severity: Mild Associated Systoms: Shortness of Air (PHILOMENA AGARWAL MED STUDENT) Allergies and Home Medications Allergies Coded Allergies: meloxicam (Verified Allergy, Mild, SOA, 06/25/22) Patient Home Medication List Home Medication List Reviewed: Yes (MARI GUZMAN MD) Amlodipine Besylate (Amlodipine Besylate) 10 Mg Tablet, 10 MG PO DAILY, (Reported) Entered as Reported by: NIK GARNICA on 06/18/17 1610 Aspirin (Aspir 81) 81 Mg Tablet., 325 MG PO BID Prescribed by: SHLOMO MULLINS on 06/19/17 1201 Cyclobenzaprine HCl (Cyclobenzaprine HCl) 10 Mg Tablet, 10 MG PO Q8H PRN for SPASMS Prescribed by: PENELOPE RAHMAN on 05/30/22 1348 Docusate Sodium (Colace) 100 Mg Capsule, 100 MG PO BID Prescribed by: ROMEL ELIZONDO on 06/19/17 0935 Gabapentin (Gabapentin) 100 Mg Capsule, 100 MG PO Q8H Prescribed by: PENELOPE RAHMAN on 05/30/22 1348 Hydrocodone Bit/Acetaminophen (Lortab 5 Mg Tablet) 1 Each Tablet, 1-2 TAB PO Q4H PRN for PAIN-MODERATE TO SEVERE Prescribed by: ROMEL ELIZONDO on 06/19/17 0931 Lisinopril (Lisinopril) 20 Mg Tablet, 40 MG PO DAILY, (Reported) Entered as Reported by: MICHAELA ACEVES on 06/18/17 0031 Metoprolol Tartrate (Metoprolol Tartrate) 100 Mg Tablet, 200 MG PO BID, (Reported) Entered as Reported by: NIK GARNICA on 06/18/17 1610 Sulfamethoxazole/Trimethoprim (Bactrim Ds Tablet) 1 Each Tablet, 1 EACH PO BID Prescribed by: PENELOPE RAHMAN on 05/30/22 1358 Review of Systems Review of Systems Constitutional: No chills, No fever; weight loss EENTM: No blurred vision, No vision loss Respiratory: No cough; short of breath Cardiovascular: No chest pain, No palpitations Gastrointestinal: constipation, loss of appetite, melena Genitourinary: No dysuria, No frequency Musculoskeletal: back pain Skin: No lesions, No lumps Psychiatric/Neurological: Denies Headache, Denies Numbness, Denies Paresthesia Hematologic/Lymphatic: No Symptoms Reported Immunological/Allergic: no symptoms reported (PHILOMENA AGARWAL STUDENT) Past Ewjacvp-Mbuquq-Kukeqs Hx Seasonal Allergies Seasonal Allergies: No (PHILOMENA AGARWAL STUDENT) Past Medical History Surgeries: Yes (TUBAL 88) Tubal Ligation Respiratory: No Cardiac: Yes Hypertension Neurological: No Reproductive Disorders: No Genitourinary: No Gastrointestinal: No Musculoskeletal: No Endocrine: No HEENT: No Cancer: No Psychosocial: No Integumentary: No Blood Disorders: No (PHILOMENA AGARWAL STUDENT) Physical Exam Vital Signs Vital Signs - First Documented 06/25/22 09:49 Temp 35.1 Pulse 96 Resp 20 B/P (MAP) 127/115 (119) Pulse Ox 95 O2 Delivery Room Air (MARI GUZMAN MD) Vital Signs Capillary Refill : (PHILOMENA AGARWAL MED STUDENT) Height, Weight, BMI Height: 5'4.50" Weight: 125lbs. oz. 56.034697rf; 18.00 BMI Method:Stated General Appearance: No Apparent Distress, Thin HEENT: PERRL/EOMI, Pharynx Normal Neck: Full Range of Motion, Normal Inspection Respiratory: Chest Non Tender, Lungs Clear, Normal Breath Sounds Cardiovascular: Regular Rate, Rhythm, No Murmur Gastrointestinal: Normal Bowel Sounds, Non Tender, Soft Neurologic/Psychiatric: Alert, Oriented x3, Depressed Affect Skin: Normal Color, Warm/Dry Lymphatic: No Adenopathy (PHILOMENA AGARWAL A MED STUDENT) Focused Exam Lactate Level (MARI GUZMAN MD) Lactic Acid Level Laboratory Tests Test 06/25/22 10:00 Lactic Acid Level 4.05 MMOL/L (0.50-2.00) *H (MARI GUZMAN MD) Progress/Results/Core Measures Suspected Sepsis SIRS Temperature: Pulse: Respiratory Rate: Laboratory Tests 06/25/22 09:55: White Blood Count 11.1H Blood Pressure / Mean: Laboratory Tests 06/25/22 09:55: Creatinine 1.03, Platelet Count 38*L, Total Bilirubin 2.5H (PHILOMENA AGARWAL MED STUDENT) Results/Orders Lab Results Laboratory Tests Test 06/25/22 09:55 06/25/22 10:00 06/25/22 11:33 06/25/22 12:47 Range/Units White Blood Count 11.1 H 4.3-11.0 10^3/uL Red Blood Count 3.69 L 3.80-5.11 10^6/uL Hemoglobin 11.1 L 11.5-16.0 g/dL Hematocrit 34 L 35-52 % Mean Corpuscular Volume 91 80-99 fL Mean Corpuscular Hemoglobin 30 25-34 pg Mean Corpuscular Hemoglobin Concent 33 32-36 g/dL Red Cell Distribution Width 16.9 H 10.0-14.5 % Platelet Count 38 *L 130-400 10^3/uL Mean Platelet Volume 9.0-12.2 fL Immature Granulocyte % (Auto) 5 % Neutrophils (%) (Auto) 76 H 42-75 % Lymphocytes (%) (Auto) 12 12-44 % Monocytes (%) (Auto) 7 0-12 % Eosinophils (%) (Auto) 0 0-10 % Basophils (%) (Auto) 0 0-10 % Neutrophils # (Auto) 8.5 H 1.8-7.8 10^3/uL Lymphocytes # (Auto) 1.3 1.0-4.0 10^3/uL Monocytes # (Auto) 0.7 0.0-1.0 10^3/uL Eosinophils # (Auto) 0.0 0.0-0.3 10^3/uL Basophils # (Auto) 0.0 0.0-0.1 10^3/uL Immature Granulocyte # (Auto) 0.5 H 0.0-0.1 10^3/uL Percent Immature Platelet Fraction 17.4 H 0.0-7.6 % Prothrombin Time 16.0 H 12.2-14.7 SEC INR Comment 1.2 0.8-1.4 Activated Partial Thromboplast Time 37 H 24-35 SEC Sodium Level 138 135-145 MMOL/L Potassium Level 4.7 3.6-5.0 MMOL/L Chloride Level 93 L 98-107 MMOL/L Carbon Dioxide Level 22 21-32 MMOL/L Anion Gap 23 H 5-14 MMOL/L Blood Urea Nitrogen 43 H 7-18 MG/DL Creatinine 1.03 0.60-1.30 MG/DL Estimat Glomerular Filtration Rate 59 BUN/Creatinine Ratio 42 Glucose Level 115 H 70-105 MG/DL Calcium Level 10.9 H 8.5-10.1 MG/DL Corrected Calcium 11.6 H 8.5-10.1 MG/DL Total Bilirubin 2.5 H 0.1-1.0 MG/DL Aspartate Amino Transf (AST/SGOT) 449 H 5-34 U/L Alanine Aminotransferase (ALT/SGPT) 78 H 0-55 U/L Alkaline Phosphatase 511 H 40-136 U/L Total Protein 6.6 6.4-8.2 GM/DL Albumin 3.1 L 3.2-4.5 GM/DL Lipase 14 8-78 U/L Lactic Acid Level 4.05 *H 0.50-2.00 MMOL/L Glucometer 132 H 70-110 MG/DL Ammonia 23 11-32 UMOL/L (MARI GUZMAN MD) My Orders Orders - MARI GUZMAN MD Ed Iv/Invasive Line Start (06/25/22 10:58) Cbc With Automated Diff (06/25/22 10:58) Comprehensive Metabolic Panel (06/25/22 10:58) Chest 1 View, Ap/Pa Only (06/25/22 10:58) Ua Culture If Indicated (06/25/22 10:58) Lipase (06/25/22 11:26) Protime With Inr (06/25/22 12:02) Partial Thromboplastin Time (06/25/22 12:02) Ns (Ivpb) (Sodium Chloride 0.9%) (06/25/22 12:30) Fentanyl Inj (Sublimaze Injection) (06/25/22 12:30) General/Regular (06/25/22 Lunch) Ammonia (06/25/22 12:45) Blood Culture (06/25/22 12:47) Lactic Acid Analyzer (06/25/22 12:47) Ct Chest/Abdomen/Pelvis W (06/25/22 12:47) (MARI GUZMAN MD) Medications Given in ED (MARI GUZMAN MD) Vital Signs/I&O 06/25/22 09:49 Temp 35.1 Pulse 96 Resp 20 B/P (MAP) 127/115 (119) Pulse Ox 95 O2 Delivery Room Air (MARI GUZMAN MD) Vital Signs/I&O Capillary Refill : (PHILOMENA AAGRWAL MED STUDENT) Progress Note : Time: 11:34 Progress Note WBC 11.1, hgb 11.1, plt 38, AST 449, ALT 48, total bili 1.5. Will order lipase to r/o pancreatitis with hx of back pain. 1157 CXR showed moderate to large right-sided pleural effusion with right basilar opacities and cardiomegaly. (PHILOMENA AGARWAL MED STUDENT) Progress Note : Time: 12:30 Progress Note 71yo female to the ER with generalized weakness, severe back pain that radiates into abdomen. Ongoing at least 2 months. Has seen the ED as well as PCP. Has had PT and muscle relaxers and gabapentin. Complaint of significantly decreased appetite and weight loss. Occasionally dizzy. Generally just feeling very poorly. attentive at bedside and contripbutes to history. States she has been a little "confused" and patient states she "loses her words often". History of treated Hep C 2 years ago - no subsequent follow up. Quit smoking and drinking alcohol 6 months ago. Exam relatively benign very slightly icteric sclerae.- she appears cachectic. She has diffuse bony tenderness to lower spine. INtact sensation Bilat LE and physiologic strength. no incontinence. Abdomen benign. Labs concerning with elevated LFT's, thrombocytopenia. Large right pleural effusion. Suspect cancer related to previous Hep C. Will admit for further w/u, pain management. (MARI GUZMAN MD) Diagnostic Imaging Diagonstic Imaging: Xray Comments [facility]. [place], [place] NAME: LESLEY PAEZ [facility] REC#: [id number] PT STATUS: REG ER : 1950 PHYSICIAN: MARI GUZMAN MD ADMIT DATE: 06/25/22/ER Signed Date of Exam:06/25/22 CHEST 1 VIEW, AP/PA ONLY EXAMINATION: Chest 1 view HISTORY: Weakness. Shortness of breath. COMPARISON: None available. FINDINGS: Moderate to large right-sided pleural effusion is seen with right basilar opacities. No pneumothorax. Prominent cardiac silhouette. There is calcified aortic atherosclerotic plaque. IMPRESSION: 1. Moderate to large right-sided pleural effusion with right basilar opacities. 2. Cardiomegaly. Dictated by: Dictated on workstation # [id number] Dict: 06/25/22 1139 Trans: 06/25/22 1159 [facility] [id number] Interpreted by: FUNMI LOPEZ DO Electronically signed by: FUNMI LOPEZ DO 06/25/22 1159 (MARI GUZMAN MD) Departure Communication (Admissions) Time/Spoke to Admitting Phy: 12:[address] Burton (MARI GUZMAN MD) Impression Primary Impression: Dyspnea Qualified Codes: R06.00 - Dyspnea, unspecified Additional Impressions: Pleural effusion associated with hepatic disorder Transaminitis Thrombocytopenia Disposition: ADMITTED INPATIENT Condition: Stable Admissions Decision to Admit Reason: Admit from ER (General) Decision to Admit/Date: Jun 25, 2022 Time/Decision to Admit Time: 12:50 (MARI GUZMAN MD) Departure-Patient Inst. Referrals: RACHID BALDWIN MD (PCP/Family) Primary Care Physician Verification and Attestation of Medical Student E/M Service A medical student performed and documented this service in my presence. I reviewed and verified all information documented by the medical student and made modifications to such information, when appropriate. I personally performed the physical exam and medical decision making. Mari Guzman, Jun 26, 2022,06:57 (MARI GUZMAN MD) Copy Copies To 1: RACHID BALDWIN MD, [place] A MED STUDENT Jun 25, 2022 10:53 MARI GUZMAN MD Jun 25, 2022 12:50
[2022-06-25 11:05] LABS: ALBUMIN 3.1 GM/DL (3.2-4.5)
[2022-06-25 11:06] LABS: BASOPHILS % (AUTO) 0 % (0-10); EOSINOPHILS % (AUTO) 0 % (0-10); HEMATOCRIT 34 % (35-52); HEMOGLOBIN 11.1 g/dL (11.5-16.0); LYMPHOCYTES # (AUTO) 1.3 10^3/uL (1.0-4.0); LYMPHOCYTES % (AUTO) 12 % (12-44); MEAN CORPUSCULAR HEMOGLOBIN 30 pg (25-34); MEAN CORPUSCULAR HGB CONC 33 g/dL (32-36); MEAN CORPUSCULAR VOLUME 91 fL (80-99); MONOCYTES # (AUTO) 0.7 10^3/uL (0.0-1.0); MONOCYTES % (AUTO) 7 % (0-12); NEUTROPHILS # (AUTO) 8.5 10^3/uL (1.8-7.8); NEUTROPHILS % (AUTO) 76 % (42-75); POTASSIUM 4.7 MMOL/L (3.6-5.0); WHITE BLOOD COUNT 11.1 10^3/uL (4.3-11.0)
[2022-06-25 11:07] LABS: CALCIUM 10.9 MG/DL (8.5-10.1)
[2022-06-25 11:08] LABS: TOTAL PROTEIN 6.6 GM/DL (6.4-8.2)
[2022-06-25 11:10] LABS: BILIRUBIN,TOTAL 2.5 MG/DL (0.1-1.0)
[2022-06-25 11:12] LABS: CREATININE SERUM 1.03 MG/DL (0.60-1.30)
[2022-06-25 11:23] LABS: PLATELET COUNT 38 10^3/uL (130-400)
--- NOTE | 2022-06-25 11:50 | Diagnostic Imaging Report ---
EXAMINATION: Chest 1 view HISTORY: Weakness. Shortness of breath. COMPARISON: None available. FINDINGS: Moderate to large right-sided pleural effusion is seen with right basilar opacities. No pneumothorax. Prominent cardiac silhouette. There is calcified aortic atherosclerotic plaque. IMPRESSION: 1. Moderate to large right-sided pleural effusion with right basilar opacities. 2. Cardiomegaly. Dictated by: Dictated on workstation # [id number]
[2022-06-25 12:14] LABS: INR 1.2 (0.8-1.4)
[2022-06-25] MEDS ORDERED: NS (IVPB) 250 ML IV ONE (12:30)
[2022-06-25] MEDS ORDERED: fentaNYL INJ 100 MCG/2 ML AMP IVP ONE (12:30)
[2022-06-25] MEDS ORDERED: IOHEXOL 350 MG/ML 100 ML (OMNIPAQUE 350) VIAL IV ONE (13:00)
[2022-06-25] MEDS ORDERED: HOLD METFORMIN - RECEIVED CONTRAST 20 ML VIAL IV SCH (13:00)
[2022-06-25] MEDS ORDERED: NS 100 ML (IVPB) BAG IV ONE (13:00)
--- NOTE | 2022-06-25 13:57 | Consultation - Surgery ---
CHELE WINCHESTER 06/25/22 1357: History of Present Illness History of Present Illness Patient Consulted On(linden/time) 06/25/22 13:56 Date Seen by Provider: Jun 25, 2022 Time Seen by Provider: 13:00 History of Present Illness 71yo female that presented to the ED via EMS on 06/25/2022 with a CC of weakness and back pain. She has chronic back pain associated with degenerative changes, she claims the pain has been getting worse. Patient also complained of shortness of breath with any exertion. A CXR and CT provided evidence of a pleural effusion in the right lung. She is experiencing abdominal pain in the RUQ and RLQ with no radiation. Hepatomegaly is present. Patient does not think the abdominal pain is causing the back pain. Allergies and Home Medications Allergies Coded Allergies: Sasha Known Allergies (Verified Allergy, Unknown, 02/19/07) Patient Home Medication List Amlodipine Besylate (Amlodipine Besylate) 10 Mg Tablet, 10 MG PO DAILY, (Reported) Entered as Reported by: NIK GARNICA on 06/18/17 1610 Aspirin (Aspir 81) 81 Mg Tablet.dr, 325 MG PO BID Prescribed by: SHLOMO MULLINS on 06/19/17 1201 Cyclobenzaprine HCl (Cyclobenzaprine HCl) 10 Mg Tablet, 10 MG PO Q8H PRN for SPASMS Prescribed by: PENELOPE RAHMAN on 05/30/22 1348 Docusate Sodium (Colace) 100 Mg Capsule, 100 MG PO BID Prescribed by: ROMEL ELIZONDO on 06/19/17 0935 Gabapentin (Gabapentin) 100 Mg Capsule, 100 MG PO Q8H Prescribed by: PENELOPE RAHMAN on 05/30/22 1348 Hydrocodone Bit/Acetaminophen (Lortab 5 Mg Tablet) 1 Each Tablet, 1-2 TAB PO Q4H PRN for PAIN-MODERATE TO SEVERE Prescribed by: ROMEL ELIZONDO on 06/19/17 0931 Lisinopril (Lisinopril) 20 Mg Tablet, 40 MG PO DAILY, (Reported) Entered as Reported by: MICHAELA ACEVES on 06/18/17 0031 Metoprolol Tartrate (Metoprolol Tartrate) 100 Mg Tablet, 200 MG PO BID, (Reported) Entered as Reported by: NIK GARNICA on 06/18/17 1610 Sulfamethoxazole/Trimethoprim (Bactrim Ds Tablet) 1 Each Tablet, 1 EACH PO BID Prescribed by: PENELOPE RAHMAN on 05/30/22 1141 Past Baqtuck-Pajhgv-Gjadry Hx Patient Social History Drug of Choice: Pt. denies drug use Smoking Status: Former Smoker (1ppd since teenage years. Quit 5 months ago) Type Used: Cigarettes Recent Hopitalizations: Yes (low back pain on 05/30) Alcohol Use?: No (Quit 5 months ago) Have you traveled recently?: No Seasonal Allergies Seasonal Allergies: No Surgeries History of Surgeries: Yes (TUBAL 88) Surgeries: Tubal Ligation Respiratory History of Respiratory Disorde: No Cardiovascular History of Cardiac Disorders: Yes Cardiac Disorders: Hypertension Neurological History of Neurological Disord: No Reproductive System Hx Reproductive Disorders: No Genitourinary History of Genitourinary Disor: No Gastrointestinal History of Gastrointestinal Di: Yes Gastrointestinal Disorders: Hepatitis (HepC, treated 2 years ago) Musculoskeletal History of Musculoskeletal Dis: Yes Musculoskeletal Disorders: Chronic Back Pain Endocrine History of Endocrine Disorders: No (patient denied hx of diabetes) HEENT History of HEENT Disorders: No Cancer History of Cancer: No Psychosocial History of Psychiatric Problem: No Integumentary History of Skin or Integumenta: No Blood Transfusions History of Blood Disorders: No Review of Systems-General Constitutional: No chills, No fever; weight loss (15lbs in last month) Respiratory: dyspnea on exertion, short of breath Cardiovascular: No chest pain Gastrointestinal: abdominal pain (RUQ, RLQ), melena; No nausea, No vomiting Musculoskeletal: back pain Psychiatric/Neurological: Headache Physical Exam-General Problems Physical Exam Vital Signs Vital Signs - First Documented 06/25/22 09:49 Temp 35.1 Pulse 96 Resp 20 B/P (MAP) 127/115 (119) Pulse Ox 95 O2 Delivery Room Air Capillary Refill : Less Than 3 Seconds General Appearance: no apparent distress, thin, other (chronically ill) Respiratory: no respiratory distress, no accessory muscle use, decreased breath sounds (right lung, more diminished at base) Cardiovascular: no murmur, tachycardia Peripheral Pulses: 2+ Radial Pulses (R), 2+ Radial Pulses (L) Gastrointestinal: soft; No distended; tenderness (RUQ, RLQ), hepatomegaly Neurologic/Psychiatric: alert, oriented x 3 Skin: other (skin overlying the thoracic and lumbar spine showed no lesions that would contribute to back pain) Data Review Labs Laboratory Tests 06/25/22 09:55: White Blood Count 11.1H, Red Blood Count 3.69L, Hemoglobin 11.1L, Hematocrit 34L , Mean Corpuscular Volume 91, Mean Corpuscular Hemoglobin 30, Mean Corpuscular Hemoglobin Concent 33, Red Cell Distribution Width 16.9H, Platelet Count 38*L, Mean Platelet Volume , Immature Granulocyte % (Auto) 5, Neutrophils (%) (Auto) 76H, Lymphocytes (%) (Auto) 12, Monocytes (%) (Auto) 7, Eosinophils (%) (Auto) 0, Basophils (%) (Auto) 0, Neutrophils # (Auto) 8.5H, Lymphocytes # (Auto) 1.3, Monocytes # (Auto) 0.7, Eosinophils # (Auto) 0.0, Basophils # (Auto) 0.0, Immature Granulocyte # (Auto) 0.5H, Percent Immature Platelet Fraction 17.4H, Prothrombin Time 16.0H, INR Comment 1.2, Activated Partial Thromboplast Time 37H , Sodium Level 138, Potassium Level 4.7, Chloride Level 93L, Carbon Dioxide Level 22, Anion Gap 23H, Blood Urea Nitrogen 43H, Creatinine 1.03, Estimat Felipa merular Filtration Rate 59, BUN/Creatinine Ratio 42, Glucose Level 115H, Calcium Level 10.9H, Corrected Calcium 11.6H, Total Bilirubin 2.5H, Aspartate Amino Dangelo sf (AST/SGOT) 449H, Alanine Aminotransferase (ALT/SGPT) 78H, Alkaline Phosphatase 511H, Total Protein 6.6, Albumin 3.1L, Lipase 14 06/25/22 11:33: Glucometer 132H 06/25/22 12:47: Ammonia 23 Assessment/Plan Assessment/Plan Assessment/Plan Pleural effusion Probable widespread metastatic disease Thrombocytopenia Patient will undergo diagnostic and therapeutic thoracentesis on right lung pleural effusion tomorrow. Transfuse platelets before procedure. Monitor WBC and platelet count with AM lab tomorrow. CRISTOBAL DE LA PAZ DO 06/25/22 1537: History of Present Illness History of Present Illness Time Seen by Provider: 13:27 History of Present Illness Surgery asked to consult regarding pleural effusion with shortness of breath. HPI per ED: Lesley Paez is a 71 yo female who presented via EMS for weakness and back pain. Pt has hx of HTN and Hep C with treatment 2 yrs ago. Pt reports she has had back pain since the end of April which she rates as an 06/01. She came to ED on 05/30 and had imaging that showed acuity indeterminate L1 vertebral endplate compression deformity, chronic degenerative changes, and bony demineralization, so she was referred to physical therapy and sent home with shiv yclobenzaprine and gabapentin. Pt reports the pain has only worsened since starting PT. She went from being able to walk on her own to using a walker and needing assistance with ADLs. In addition, she has had SOA and weakness since that visit. The SOA and debilitation caused pt to seek medical treatment today. Pt reports the back pain is constant and radiates to her abdomen. She reports constipation and dark sticky stools without visible blood. reports she has decreased appetite and 15 lbs weight loss in the last month as well. Pt denies fever, chills, CP, cough, dysuria, urinary frequency, N/V/D, numbness and skin changes. Pt reports she stopped drinking ETOH and smoking tobacco 5 mo ago. Pt denies any drug use. When I spoke to pt she had just gotten back from CT (I was actually down at CT when she got imaging and then met her back in ER). She states shortness of breath was one of main reasons she came to ER today. She also has some abdominal pain and weight loss. PMHx significant for Hepatitis C; which she says she got "the cure for". Allergies and Home Medications Allergies Coded Allergies: NKANo Known Allergies (Verified Allergy, Unknown, 02/19/07) Patient Home Medication List Home Medication List Reviewed: Yes Amlodipine Besylate (Amlodipine Besylate) 10 Mg Tablet, 10 MG PO DAILY, (Reported) Entered as Reported by: NIK GARNICA on 06/18/17 1610 Aspirin (Aspir 81) 81 Mg Tablet., 325 MG PO BID Prescribed by: SHLOMO MULLINS on 06/19/17 1201 Cyclobenzaprine HCl (Cyclobenzaprine HCl) 10 Mg Tablet, 10 MG PO Q8H PRN for SPASMS Prescribed by: PENELOPE RAHMAN on 05/30/22 1348 Docusate Sodium (Colace) 100 Mg Capsule, 100 MG PO BID Prescribed by: ROMEL ELIZONDO on 06/19/17 0935 Gabapentin (Gabapentin) 100 Mg Capsule, 100 MG PO Q8H Prescribed by: PENELOPE RAHMAN on 05/30/22 1348 Hydrocodone Bit/Acetaminophen (Lortab 5 Mg Tablet) 1 Each Tablet, 1-2 TAB PO Q4H PRN for PAIN-MODERATE TO SEVERE Prescribed by: ROMEL ELIZONDO on 06/19/17 0931 Lisinopril (Lisinopril) 20 Mg Tablet, 40 MG PO DAILY, (Reported) Entered as Reported by: MICHAELA ACEVES on 06/18/17 0031 Metoprolol Tartrate (Metoprolol Tartrate) 100 Mg Tablet, 200 MG PO BID, (Reported) Entered as Reported by: NIK GARNICA on 06/18/17 1610 Sulfamethoxazole/Trimethoprim (Bactrim Ds Tablet) 1 Each Tablet, 1 EACH PO BID Prescribed by: PENELOPE RAHMAN on 05/30/22 1358 Past Xryptcx-Wadhyd-Dflrpx Hx Patient Social History Smoking Status: Former Smoker (1ppd since teenage years. Quit 5 months ago) Recent Hopitalizations: Yes (low back pain on 05/30) Alcohol Use?: No (Quit 5 months ago) Surgeries History of Surgeries: Yes Surgeries: Tubal Ligation Respiratory History of Respiratory Disorde: Yes Respiratory Disorders: COPD Cardiovascular History of Cardiac Disorders: Yes Cardiac Disorders: Hypertension Neurological History of Neurological Disord: No Genitourinary History of Genitourinary Disor: No Gastrointestinal History of Gastrointestinal Di: Yes Gastrointestinal Disorders: Hepatitis (HepC, treated 2 years ago) Musculoskeletal History of Musculoskeletal Dis: Yes Musculoskeletal Disorders: Chronic Back Pain Endocrine History of Endocrine Disorders: No (patient denied hx of diabetes) HEENT History of HEENT Disorders: No Loss of Vision: Denies Hearing Impairment: Denies Cancer History of Cancer: No Psychosocial History of Psychiatric Problem: No Integumentary History of Skin or Integumenta: No Family Medical History Significant Family History: Other Conditions/Hx (denied DM in her family) Review of Systems-General Constitutional: chills, fever, malaise, weakness, weight loss (15lbs in last mo nth) EENTM: No blurred vision, No eye pain, No epistaxis Respiratory: No cough; dyspnea on exertion, short of breath Cardiovascular: No chest pain, No palpitations Gastrointestinal: abdominal pain (RUQ, RLQ), loss of appetite, melena; No nausea, No vomiting Genitourinary: No dysuria, No frequency, No hematuria Musculoskeletal: back pain, joint pain, muscle pain, muscle stiffness Skin: No change in hair/nails, No lesions Psychiatric/Neurological: Denies Anxiety; Headache; Denies Tremors Physical Exam-General Problems Physical Exam General Appearance: mild distress, thin, other (chronically ill) Eyes: Bilateral Eye PERRL, Bilateral Eye EOMI HEENT: pharynx normal; No scleral icterus (R), No scleral icterus (L); other (poor dentition) Neck: non-tender, supple Respiratory: no respiratory distress, no accessory muscle use, decreased breath sounds (right lung, more diminished at base), other (dullness to percusion right base) Cardiovascular: no murmur, tachycardia Gastrointestinal: soft; No distended; tenderness (RUQ, RLQ), hernia (umbilical), hepatomegaly Rectal: deferred Extremities: no pedal edema, no calf tenderness, normal capillary refill Neurologic/Psychiatric: alert, oriented x 3 Skin: warm/dry, ecchymosis (arms and legs) Lymphatic: no adenopathy (cervical or groin) Data Review Radiology Date of Exam:06/25/22 CT CHEST/ABDOMEN/PELVIS W EXAMINATION: CT chest, abdomen and pelvis with intravenous contrast. TECHNIQUE: Multiple contiguous axial images were obtained through the chest, abdomen and pelvis after the uneventful administration of intravenous contrast. All CT scans use one or more of the following dose optimizing techniques: automated exposure control, MA and/or KvP adjustment based on patient size and exam type or iterative reconstruction. HISTORY: Weakness. Pleural effusion on the right. Jaundice. COMPARISON: Chest radiograph performed earlier the same date. FINDINGS: CT CHEST: The heart size is within normal limits. No pericardial effusion is present. There is calcified aortic and coronary atherosclerotic plaque without aneurysm. No pulmonary emboli are seen to the segmental pulmonary arteries. Prominent mediastinal lymph node is seen measuring 1.5 cm in the right paratracheal station. Large right-sided pleural effusion is seen with consolidative opacities in the right lower lobe and right middle lobe. Soft tissue masses are visualized within the pleura on the right. No pneumothorax. The left lung is clear. No central endobronchial obstructing lesions. A lytic lesion is visualized in the right aspect of the T10 vertebral body measuring 3.7 x 3.4 cm. This appears to cause severe spinal canal stenosis at this level. CT ABDOMEN AND PELVIS: Innumerable lesions are seen throughout the liver. Similar-appearing lesions are also seen throughout the spleen. The portal vein is patent. The gallbladder is nondistended. The pancreas, adrenal glands, and kidneys have a normal appearance. Mildly prominent retroperitoneal and mesenteric lymph nodes are seen in the abdomen and pelvis. The bowel loops are nondilated. Diverticula are seen in the descending and sigmoid colon without evidence of acute diverticulitis. There is no free fluid or free air. Two column fracture is visualized at the L1 level with severe bony retropulsion. There is suggestion of underlying lesion in the L1 vertebral body. There is a generalized heterogeneous appearance of the osseous structures of the lumbar spine and pelvis. There is calcified aortic and iliac atherosclerotic plaque without aneurysm. Ureters and bladder have a normal appearance. IMPRESSION: 1. Findings most suggestive of widespread metastatic disease involving the liver, spleen, and osseous structures of the thoracic and lumbar spine. Pleural-based metastases are also seen within the right lung with associated large right-sided pleural effusion. Recommend correlation with patient history. PET/CT may also be considered to further evaluate. 2. Pathologically enlarged mediastinal lymph node with additional prominent lymph nodes in the mesentery and retroperitoneum. 3. Osseous lesions at the T12 and L1 levels resulting in high-grade spinal canal stenosis. Findings could be characterized further with MRI of the thoracic and lumbar spine. Surgical consultation is also recommended for decompression. Dictated by: Dictated on workstation # [id number] Dict: 06/25/22 1344 Trans: 06/25/22 1402 [facility] [id number] Interpreted by: FUNMI LOPEZ DO Electronically signed by: FUNMI LOPEZ DO 06/25/22 1402 Assessment/Plan Assessment/Plan Assessment/Plan Pleural effusion - right lung Liver with multiple masses Lung masses Thrombocytopenia Patient will need a diagnostic and therapeutic thoracentesis on right lung pleural effusion tomorrow; first must transfuse platelets before procedure. Monitor WBC and platelet count with AM lab tomorrow. Supervisory-Addendum Brief Verification & Attestation Participated in pt care: history, MDM, physical Personally performed: exam, history, MDM, supervision of care Care discussed with: Medical Student Procedures: n/a Verification and Attestation of Medical Student E/M Service A medical student performed and documented this service. I then reviewed and verified all information documented by the medical student and made modifications to such information, when appropriate. I personally performed a physical exam, medical decision making and then discussed any differences between the notes and made revisions as necessary to create one note. Cristobal De La Paz , 06/25/22 , 15:46 CHELE WINCHESTER Jun 25, 2022 13:57 CRISTOBAL DE LA PAZ DO Jun 25, 2022 15:37
--- NOTE | 2022-06-25 14:00 | Diagnostic Imaging Report ---
EXAMINATION: CT chest, abdomen and pelvis with intravenous contrast. TECHNIQUE: Multiple contiguous axial images were obtained through the chest, abdomen and pelvis after the uneventful administration of intravenous contrast. All CT scans use one or more of the following dose optimizing techniques: automated exposure control, MA and/or KvP adjustment based on patient size and exam type or iterative reconstruction. HISTORY: Weakness. Pleural effusion on the right. Jaundice. COMPARISON: Chest radiograph performed earlier the same date. FINDINGS: CT CHEST: The heart size is within normal limits. No pericardial effusion is present. There is calcified aortic and coronary atherosclerotic plaque without aneurysm. No pulmonary emboli are seen to the segmental pulmonary arteries. Prominent mediastinal lymph node is seen measuring 1.5 cm in the right paratracheal station. Large right-sided pleural effusion is seen with consolidative opacities in the right lower lobe and right middle lobe. Soft tissue masses are visualized within the pleura on the right. No pneumothorax. The left lung is clear. No central endobronchial obstructing lesions. A lytic lesion is visualized in the right aspect of the T10 vertebral body measuring 3.7 x 3.4 cm. This appears to cause severe spinal canal stenosis at this level. CT ABDOMEN AND PELVIS: Innumerable lesions are seen throughout the liver. Similar-appearing lesions are also seen throughout the spleen. The portal vein is patent. The gallbladder is nondistended. The pancreas, adrenal glands, and kidneys have a normal appearance. Mildly prominent retroperitoneal and mesenteric lymph nodes are seen in the abdomen and pelvis. The bowel loops are nondilated. Diverticula are seen in the descending and sigmoid colon without evidence of acute diverticulitis. There is no free fluid or free air. Two column fracture is visualized at the L1 level with severe bony retropulsion. There is suggestion of underlying lesion in the L1 vertebral body. There is a generalized heterogeneous appearance of the osseous structures of the lumbar spine and pelvis. There is calcified aortic and iliac atherosclerotic plaque without aneurysm. Ureters and bladder have a normal appearance. IMPRESSION: 1. Findings most suggestive of widespread metastatic disease involving the liver, spleen, and osseous structures of the thoracic and lumbar spine. Pleural-based metastases are also seen within the right lung with associated large right-sided pleural effusion. Recommend correlation with patient history. PET/CT may also be considered to further evaluate. 2. Pathologically enlarged mediastinal lymph node with additional prominent lymph nodes in the mesentery and retroperitoneum. 3. Osseous lesions at the T12 and L1 levels resulting in high-grade spinal canal stenosis. Findings could be characterized further with MRI of the thoracic and lumbar spine. Surgical consultation is also recommended for decompression. Dictated by: Dictated on workstation # [id number]
[2022-06-25] MEDS ORDERED: ONDANSETRON 4 MG/2 ML (SDV) Z0FRAN IV PRN (14:30)
[2022-06-25] MEDS: NS IV 1000 ML 1,000 ML IV SCH ×2 (15:17→22:37)
[2022-06-25] MEDS: fentaNYL INJ 100 MCG/2 ML AMP IV PRN ×2 (15:17→19:44)
[2022-06-25 15:21] VITALS: BP 109/81
[2022-06-25 15:36] LABS: CLARITY,URINE CLEAR; COLOR,URINE YELLOW; GLUCOSE, URINE (UA) NEGATIVE (NEGATIVE); KETONES,URINE TRACE (NEGATIVE); LEUKOCYTE ESTERASE ,URINE NEGATIVE (NEGATIVE); NITRITE,URINE NEGATIVE (NEGATIVE); PROTEIN,URINE TRACE (NEGATIVE)
[2022-06-25 15:51] LABS: BACTERIA,URINE NEGATIVE /HPF; BILIRUBIN,URINE 1+ (NEGATIVE); RBC,URINE RARE /HPF
[2022-06-25 17:00] VITALS: BP 108/69
[2022-06-25] MEDS: RT-ALBUTEROL/IPRATROPIUM 3 ML (DUONEB) VIAL INH SCH (19:31)
[2022-06-25 20:00] VITALS: BP 142/88
[2022-06-25 23:20] VITALS: BP 129/84
[2022-06-26] VITALS (23 sets, daily range): BP systolic 93–160; BP diastolic 64–94
[2022-06-26] MEDS: RT-ALBUTEROL/IPRATROPIUM 3 ML (DUONEB) VIAL INH SCH ×4 (03:18→21:29)
[2022-06-26] MEDS ORDERED: NS IV 500 ML 500 ML IV PRN ×2 (03:30→03:45)
[2022-06-26 05:54] LABS: BASOPHILS % (AUTO) 1 % (0-10); EOSINOPHILS % (AUTO) 0 % (0-10); LYMPHOCYTES # (AUTO) 0.8 10^3/uL (1.0-4.0); LYMPHOCYTES % (AUTO) 10 % (12-44)
[2022-06-26 05:56] LABS: HEMATOCRIT 30 % (35-52); HEMOGLOBIN 9.9 g/dL (11.5-16.0); MEAN CORPUSCULAR HEMOGLOBIN 31 pg (25-34); MEAN CORPUSCULAR HGB CONC 33 g/dL (32-36); MEAN CORPUSCULAR VOLUME 93 fL (80-99); MEAN PLATELET VOLUME 13.7 fL (9.0-12.2); MONOCYTES # (AUTO) 0.7 10^3/uL (0.0-1.0); MONOCYTES % (AUTO) 8 % (0-12); NEUTROPHILS # (AUTO) 6.6 10^3/uL (1.8-7.8); NEUTROPHILS % (AUTO) 78 % (42-75); WHITE BLOOD COUNT 8.4 10^3/uL (4.3-11.0)
[2022-06-26] MEDS ORDERED: MAGNESIUM 1 GM/100 ML IVPB 100 ML IV SCH (06:00)
[2022-06-26] MEDS ORDERED: KCL 20 MEQ TAB (K-DUR) PO SCH (06:00)
[2022-06-26] MEDS ORDERED: POTASSIUM CL 10MEQ/50ML IVPB 50 ML IV SCH (06:00)
[2022-06-26 06:15] LABS: PLATELET COUNT 26 10^3/uL (130-400)
[2022-06-26 06:21] LABS: INR 1.2 (0.8-1.4); PROTHROMBIN TIME PATIENT 15.7 SEC (12.2-14.7)
[2022-06-26 06:30] LABS: POTASSIUM 4.2 MMOL/L (3.6-5.0)
[2022-06-26 06:31] LABS: CALCIUM 9.9 MG/DL (8.5-10.1)
[2022-06-26 06:35] LABS: CREATININE SERUM 0.89 MG/DL (0.60-1.30)
[2022-06-26] MEDS: KCL 20 MEQ TAB (K-DUR) PO SCH (07:17)
[2022-06-26] MEDS: POTASSIUM CL 10MEQ/50ML IVPB 50 ML IV SCH (07:18)
[2022-06-26] MEDS: MAGNESIUM 1 GM/100 ML IVPB 100 ML IV SCH ×3 (07:18→08:34)
--- NOTE | 2022-06-26 07:30 | Tele-ICU Progress Note ---
Progress Note video rounds completed 71 y/o female admited with weakness, SOB and back pain. Work up has revealed likely metastatic disease to the liver, spleen and osseous structures of thoracic and lumbar spine Has large right pleural effusion to be tapped, but platelet count is low. PE: appears reasonably comfortable lying in bed with O2 by mask Pulse 113 BP: 121/74 RR 23 O2 sat 91% PLAN: has been seen by general surgery for RUQ pain likely secondary to liver no dules Awaiting pleural tap Focused Exam Lactate Level 06/25/22 18:13: Lactic Acid Level 3.27*H 06/25/22 20:50: Lactic Acid Level 3.07*H 06/26/22 05:43: Lactic Acid Level 3.10*H Height, Weight, BMI Height: 5'4.50" Weight: 125lbs. oz. [id number]; 18.45 BMI Method:Stated Lactic Acid Level Laboratory Tests Test 06/26/22 05:43 Lactic Acid Level 3.10 MMOL/L (0.50-2.00) *H Labs Laboratory Tests 06/25/22 09:55 06/26/22 05:43 06/26/22 06:03 Results Results/Procedures Labs Laboratory Tests 06/25/22 09:55 06/26/22 05:43 06/26/22 06:03 Patient resulted labs reviewed. Results Labs Labs Laboratory Tests 06/25/22 09:55: White Blood Count 11.1H, Red Blood Count 3.69L, Hemoglobin 11.1L, Hematocrit 34L , Mean Corpuscular Volume 91, Mean Corpuscular Hemoglobin 30, Mean Corpuscular Hemoglobin Concent 33, Red Cell Distribution Width 16.9H, Platelet Count 38*L, Mean Platelet Volume , Immature Granulocyte % (Auto) 5, Neutrophils (%) (Auto) 76H, Lymphocytes (%) (Auto) 12, Monocytes (%) (Auto) 7, Eosinophils (%) (Auto) 0, Basophils (%) (Auto) 0, Neutrophils # (Auto) 8.5H, Lymphocytes # (Auto) 1.3, Monocytes # (Auto) 0.7, Eosinophils # (Auto) 0.0, Basophils # (Auto) 0.0, Immature Granulocyte # (Auto) 0.5H, Percent Immature Platelet Fraction 17.4H, Prothrombin Time 16.0H, INR Comment 1.2, Activated Partial Thromboplast Time 37H , Sodium Level 138, Potassium Level 4.7, Chloride Level 93L, Carbon Dioxide Level 22, Anion Gap 23H, Blood Urea Nitrogen 43H, Creatinine 1.03, Estimat Glomerular Filtration Rate 59, BUN/Creatinine Ratio 42, Glucose Level 115H, Calcium Level 10.9H, Corrected Calcium 11.6H, Total Bilirubin 2.5H, Aspartate Amino Transf (AST/SGOT) 449H, Alanine Aminotransferase (ALT/SGPT) 78H, Alkaline Phosphatase 511H, Total Protein 6.6, Albumin 3.1L, Lipase 14 06/25/22 10:00: Lactic Acid Level 4.05*H 06/25/22 11:33: Glucometer 132H 06/25/22 12:47: Ammonia 23 06/25/22 15:30: Urine Color YELLOW, Urine Clarity CLEAR, Urine pH 5.0, Urine Specific [place] <=1.005, Urine Protein TRACEH, Urine Glucose (UA) NEGATIVE, Urine Ketones TRACEH , Urine Nitrite NEGATIVE, Urine Bilirubin 1+H, Urine Urobilinogen 0.2, Urine Leukocyte Esterase NEGATIVE, Urine RBC (Auto) 1+H, Urine RBC RARE, Urine WBC NONE, Urine Squamous Epithelial Cells NONE, Urine Crystals NONE, Urine Bacteria NEGATIVE, Urine Casts NONE, Urine Mucus NEGATIVE, Urine Culture Indicated NO 06/25/22 15:48: Lactic Acid Level 2.78*H 06/25/22 18:13: Lactic Acid Level 3.27*H 06/25/22 20:50: Lactic Acid Level 3.07*H 06/26/22 05:43: White Blood Count 8.4, Red Blood Count 3.25L, Hemoglobin 9.9L, Hematocrit 30L, Mean Corpuscular Volume 93, Mean Corpuscular Hemoglobin 31, Mean Corpuscular Hemoglobin Concent 33, Red Cell Distribution Width 17.3H, Platelet Count 26*L, Mean Platelet Volume 13.7H, Immature Granulocyte % (Auto) 3, Neutrophils (%) (Auto) 78H, Lymphocytes (%) (Auto) 10L, Monocytes (%) (Auto) 8, Eosinophils (%) (Auto) 0, Basophils (%) (Auto) 1, Neutrophils # (Auto) 6.6, Lymphocytes # (Auto) 0.8L, Monocytes # (Auto) 0.7, Eosinophils # (Auto) 0.0, Basophils # (Auto) 0.0, Immature Granulocyte # (Auto) 0.3H, Percent Immature Platelet Fraction 17.6H, Prothrombin Time 15.7H, INR Comment 1.2, Lactic Acid Level 3.10*H, Magnesium Level 1.6 06/26/22 06:03: Sodium Level 142, Potassium Level 4.2, Chloride Level 99, Carbon Dioxide Level 20L, Anion Gap 23H, Blood Urea Nitrogen 37H, Creatinine 0.89, Estimat Glomerular Filtration Rate 70, BUN/Creatinine Ratio 42, Glucose Level 109H, Calcium Level 9.9 OMAR SHELTON MD Jun 26, 2022 07:30
--- NOTE | 2022-06-26 09:57 | History & Physical-Hospitalist ---
History of Present Illness HPI/Chief Complaint Patient is a 71-year-old female with past medical history of hepatitis C status status post curative treatment who presented to the emergency department due to weakness and shortness of breath. She reports this has been going on for over 5 months. She was seen in the emergency room last month for the pain. She has also been seen by her primary care physician, Dr. Franklin. She was treated with physical therapy and Flexeril. Yesterday her shortness of breath and pain worsened prompting her to seek evaluation. She was requiring a 1 wheelchair to ambulate when she is normally independent. Her reports that she has had significant weight loss of 15 pounds as well. He also reports decreased appetite and subsequent decreased urine output. She denies any incontinence, numbness, tingling. Her only complaint today is that she has anxiety. In the emergency room she was found to have a large pleural effusion and was hypoxic. Due to elevated liver enzymes and history of hepatitis C she underwent a CT chest abdomen pelvis which revealed innumerable liver and splenic masses with presumed widely metastatic disease. I did inform the patient and her of this this morning and the need for thoracentesis and sent for pathology. Source: patient Date Seen 06/26/22 Time Seen by a Provider: 09:53 Attending Physician Augie Franklin MD PCP Admitting Physician: Gibran Burton MD Attending Physician: Gibran Burton MD Referring Physician Date of Admission Jun 25, 2022 at 12:52 Home Medications & Allergies Home Medications Reviewed patient Home Medication Reconciliation performed by pharmacy medication reconciliations drafting technician and/or nursing. Patients Allergies have been reviewed. Allergies Allergies Coded Allergies meloxicam (Verified Allergy, Mild, SOA, 06/25/22) Past Jyzeicd-Dafguz-Kfflxl Hx Patient Social History Marrital Status: Tobacco Use?: No Tobacco type used: Cigarettes Smoking Status: Former Smoker (1ppd since teenage years. Quit 5 months ago) Smokeless Tobacco Frequency: Never a User Use of E-Cig and/or Vaping dev: No Substance use?: No Alcohol Use?: No (Quit 5 months ago) Alcohol type: Beer Alcohol Frequency: Several times a month Pt feels they are or have been: No Immunizations Up To Date First/Initial COVID19 Vaccinat: 2020 Second COVID19 Vaccination Antonio: 2020 Tetanus Booster (TDap): Unknown Seasonal Allergies Seasonal Allergies: No Current Status status: No status: No Advance Directives: No Communicates: Verbally Primary Language: [place] Preferred Spoken Language: [place] Is interpretation needed?: No Implanted or Applied Medical D: None Past Medical History Surgeries: Tubal Ligation COPD Hypertension Hepatitis (HepC, treated 2 years ago) Chronic Back Pain Loss of Vision: Denies Hearing Impairment: Denies Blood Disorders: No Family Medical History Reviewed Nursing Family Hx Other Conditions/Hx (denied DM in her family) Review of Systems Constitutional: No chills, No fever; malaise, weakness, weight loss EENTM: no symptoms reported Respiratory: No cough; dyspnea on exertion, orthopnea, short of breath Cardiovascular: No chest pain, No edema, No Hx of Intervention Gastrointestinal: No constipation, No diarrhea; loss of appetite; No nausea Genitourinary: decreased output; No dysuria, No frequency, No incontinence Musculoskeletal: see HPI, back pain Skin: no symptoms reported Psychiatric/Neurological: No Symptoms Reported Physical Exam Physical Exam Vital Signs Vital Signs - First Documented 06/25/22 06/25/22 09:49 13:56 Temp 35.1 Pulse 96 Resp 20 B/P (MAP) 127/115 (119) Pulse Ox 95 O2 Delivery Room Air O2 Flow Rate 3.00 Capillary Refill : Less Than 3 Seconds Height, Weight, BMI Height: 5'4.50" Weight: 125lbs. oz. 56.383349my; 18.45 BMI Method:Stated General Appearance: Anxious, Chronically ill, Thin HEENT: PERRL/EOMI, Moist Mucous Membranes; No Scleral Icterus (L), No Scleral Icterus (R) Neck: Normal Inspection, Supple Respiratory: No Accessory Muscle Use, Decreased Breath Sounds; No Wheezing; Other (5lpm HFNC) Cardiovascular: Irregularly Irregular, Tachycardia Gastrointestinal: Normal Bowel Sounds, Non Tender, Soft; No Distended, No Tenderness Genital/Rectal: Other (catheter in place) Extremity: Normal Capillary Refill, No Calf Tenderness, No Pedal Edema Neurologic/Psychiatric: Alert, Oriented x3, Normal Mood/Affect; No Aphasia, No Motor Weakness, No Sensory Deficit Skin: Warm/Dry, Jaundice (mild); No Petechia Results Results/Procedures Labs Laboratory Tests 06/25/22 09:55 06/26/22 05:43 06/26/22 06:03 Patient resulted labs reviewed. Imaging: Reviewed Imaging Report [facility] [place] [place] NAME: BHAVESH BUCIO [facility] REC#: [id number] PT STATUS: REG ER : 1950 PHYSICIAN: MARI SAVAGE MD ADMIT DATE: 06/25/22/ER Signed Date of Exam:06/25/22 CHEST 1 VIEW, AP/PA ONLY EXAMINATION: Chest 1 view HISTORY: Weakness. Shortness of breath. COMPARISON: None available. FINDINGS: Moderate to large right-sided pleural effusion is seen with right basilar opacities. No pneumothorax. Prominent cardiac silhouette. There is calcified aortic atherosclerotic plaque. IMPRESSION: 1. Moderate to large right-sided pleural effusion with right basilar opacities. 2. Cardiomegaly. Dictated by: Dictated on workstation # [id number] Dict: 06/25/22 1139 Trans: 06/25/22 1159 [facility] [id number] Interpreted by: FUNMI LOPEZ DO Electronically signed by: FUNMI LOPEZ DO 06/25/22 1159 [facility] [place] NAME: BHAVESH BUCIO [facility] REC#: [id number] PT STATUS: ADM IN : 1950 PHYSICIAN: MARI SAVAGE MD ADMIT DATE: 06/25/22/4TH Signed Date of Exam:06/25/22 CT CHEST/ABDOMEN/PELVIS W EXAMINATION: CT chest, abdomen and pelvis with intravenous contrast. TECHNIQUE: Multiple contiguous axial images were obtained through the chest, abdomen and pelvis after the uneventful administration of intravenous contrast. All CT scans use one or more of the following dose optimizing techniques: automated exposure control, MA and/or KvP adjustment based on patient size and exam type or iterative reconstruction. HISTORY: Weakness. Pleural effusion on the right. Jaundice. COMPARISON: Chest radiograph performed earlier the same date. FINDINGS: CT CHEST: The heart size is within normal limits. No pericardial effusion is present. There is calcified aortic and coronary atherosclerotic plaque without aneurysm. No pulmonary emboli are seen to the segmental pulmonary arteries. Prominent mediastinal lymph node is seen measuring 1.5 cm in the right paratracheal station. Large right-sided pleural effusion is seen with consolidative opacities in the right lower lobe and right middle lobe. Soft tissue masses are visualized within the pleura on the right. No pneumothorax. The left lung is clear. No central endobronchial obstructing lesions. A lytic lesion is visualized in the right aspect of the T10 vertebral body measuring 3.7 x 3.4 cm. This appears to cause severe spinal canal stenosis at this level. CT ABDOMEN AND PELVIS: Innumerable lesions are seen throughout the liver. Similar-appearing lesions are also seen throughout the spleen. The portal vein is patent. The gallbladder is nondistended. The pancreas, adrenal glands, and kidneys have a normal appearance. Mildly prominent retroperitoneal and mesenteric lymph nodes are seen in the abdomen and pelvis. The bowel loops are nondilated. Diverticula are seen in the descending and sigmoid colon without evidence of acute diverticulitis. There is no free fluid or free air. Two column fracture is visualized at the L1 level with severe bony retropulsion. There is suggestion of underlying lesion in the L1 vertebral body. There is a generalized heterogeneous appearance of the osseous structures of the lumbar spine and pelvis. There is calcified aortic and iliac atherosclerotic plaque without aneurysm. Ureters and bladder have a normal appearance. IMPRESSION: 1. Findings most suggestive of widespread metastatic disease involving the liver, spleen, and osseous structures of the thoracic and lumbar spine. Pleural-based metastases are also seen within the right lung with associated large right-sided pleural effusion. Recommend correlation with patient history. PET/CT may also be considered to further evaluate. 2. Pathologically enlarged mediastinal lymph node with additional prominent lymph nodes in the mesentery and retroperitoneum. 3. Osseous lesions at the T12 and L1 levels resulting in high-grade spinal canal stenosis. Findings could be characterized further with MRI of the thoracic and lumbar spine. Surgical consultation is also recommended for decompression. Dictated by: Dictated on workstation # [id number] Dict: 06/25/22 1344 Trans: 06/25/22 1402 [facility] [id number] Interpreted by: FUNMI LOPEZ DO Electronically signed by: FUNMI LOPEZ DO 06/25/22 1407 Assessment/Plan Admission Diagnosis Pleural effusion and newly diagnosed widely metastatic disease Admission Status: Inpatient Order (span 2 midnights) Reason for Inpatient Admission: see below Assessment and Plan Acute hypoxic respiratory failure Pleural effusion MAT protocol Currently on 5lpm, down from 10lpm Thoracentesis later today TeleICU consulted, appreciate recs Widely metastatic diseas Pleural effusion (likely malignant) Liver masses Spleen masses Bony metastatic disease (T10 and L1) Cachexia Imaging and symptoms consistent with advanced cancer Discussed with patient and imaging findings Discussed with Dr Delgado who will plan for thoracentesis today Plan to send for pathology Discussed with Dr Vasquez and as in neurovascularly intact will need outpatient follow up Monitor closely given L1 fracture Will need oncology consult- prefers to see someone local (has previously follow with [facility] for hepatology) Lactic acidosis elevated- not sepsis- unable to clear due to liver disease Atrial fibrillation with RVR New onset Discussed with Dr Dominguez Echo ordered Hold Lovenox for thoracentesis and due to thrombocytopenia telemetry Continued cardizem Anemia of chronic disease Hgb 9.9 trend Diagnosis/Problems Diagnosis/Problems (1) Cachexia (2) Metastasis of unknown primary (3) Liver metastases (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
[2022-06-26] MEDS: LORazepam 0.5 MG (ATIVAN) TABLET PO PRN (09:58)
--- NOTE | 2022-06-26 10:31 | Progress Note - Surgery ---
CHELE WINCHESTER 06/26/22 1031: Subjective Date Seen by a Provider: Jun 26, 2022 Time Seen by a Provider: 10:00 Subjective/Events-last exam Patient says she is feeling worse today. She is very anxious because her shortness of breath is getting worse and is present at rest. She is still having abdominal and back pain. She is on a normal diet but is not eating because she has no appetite. She feels feverish and is having frequent chills. Review of Systems General: Chills, Fatigue, Appetite (has no appetite, takes one bite of most foods) Pulmonary: Dyspnea Cardiovascular: No: Chest Pain Gastrointestinal: Nausea, Abdominal Pain; No: Vomiting Musculoskeletal: back pain Focused Exam Lactate Level 06/25/22 18:13: Lactic Acid Level 3.27*H 06/25/22 20:50: Lactic Acid Level 3.07*H 06/26/22 05:43: Lactic Acid Level 3.10*H Objective Exam Vital Signs Date Time Temp Pulse Resp B/P (MAP) Pulse Ox O2 Delivery O2 Flow Rate FiO2 06/26/22 10:00 115 22 115/73 (87) 95 High Flow N/C 5.00 06/26/22 09:04 97 Nasal Cannula 5.00 06/26/22 09:00 116 20 105/75 (85) 96 High Flow N/C 5.00 06/26/22 08:00 123 132/85 (101) 96 High Flow N/C 5.00 06/26/22 08:00 96 High Flow N/C 5.00 06/26/22 07:57 37.1 06/26/22 07:55 96 High Flow N/C 5.00 06/26/22 07:00 112 22 118/70 (86) 91 OxyMask 10.00 06/26/22 07:00 115 06/26/22 06:55 OxyMask 10.00 06/26/22 06:00 114 16 120/72 (88) 90 OxyMask 8.00 06/26/22 05:00 114 19 118/70 (86) 92 OxyMask 8.00 06/26/22 04:00 92 Nasal Cannula 6.00 06/26/22 04:00 36.8 06/26/22 04:00 112 23 140/86 (104) 91 Nasal Cannula 6.00 06/26/22 03:18 93 Nasal Cannula 6.00 06/26/22 03:01 122 06/26/22 03:00 121 20 136/86 (103) 95 Nasal Cannula 6.00 06/26/22 02:45 122 160/90 (113) 95 Nasal Cannula 6.00 06/26/22 02:35 Nasal Cannula 6.00 06/26/22 02:11 125 26 134/94 (107) 92 Nasal Cannula 6.00 06/26/22 02:05 82 Nasal Cannula 3.00 06/26/22 01:00 110 06/25/22 23:20 36.0 120 20 129/84 (99) 93 Nasal Cannula 3.00 06/25/22 20:00 36.3 103 21 142/88 (106) 93 Nasal Cannula 3.00 06/25/22 20:00 93 Nasal Cannula 3.00 06/25/22 19:34 93 Nasal Cannula 3.00 06/25/22 19:00 106 06/25/22 17:00 36.6 106 20 108/69 (82) 94 Nasal Cannula 3.00 06/25/22 16:06 Nasal Cannula 3.00 06/25/22 15:21 35.1 106 94 06/25/22 15:08 106 06/25/22 13:56 104 18 109/81 94 3.00 I & O 06/26/22 07:00 Intake Total 3500 ml Output Total 500 ml Balance 3000 ml Capillary Refill : Less Than 3 Seconds General Appearance: Anxious, Chronically ill, Moderate Distress, Thin Respiratory: Accessory Muscle Use, Decreased Breath Sounds (diminished at right lung base) Cardiovascular: No Murmur, Tachycardia Peripheral Pulses: 2+ Radial Pulses (R), 2+ Radial Pulses (L) Gastrointestinal: soft; No distended; tenderness (RUQ), hepatomegaly Neurologic/Psychiatric: Alert, Oriented x3 Skin: Jaundice Results Lab Laboratory Tests 06/25/22 11:33: Glucometer 132H 06/25/22 12:47: Ammonia 23 06/25/22 15:30: Urine Color YELLOW, Urine Clarity CLEAR, Urine pH 5.0, Urine Specific [place] <=1.005, Urine Protein TRACEH, Urine Glucose (UA) NEGATIVE, Urine Ketones TRACEH , Urine Nitrite NEGATIVE, Urine Bilirubin 1+H, Urine Urobilinogen 0.2, Urine Leukocyte Esterase NEGATIVE, Urine RBC (Auto) 1+H, Urine RBC RARE, Urine WBC NONE, Urine Squamous Epithelial Cells NONE, Urine Crystals NONE, Urine Bacteria NEGATIVE, Urine Casts NONE, Urine Mucus NEGATIVE, Urine Culture Indicated NO 06/25/22 15:48: Lactic Acid Level 2.78*H 06/25/22 18:13: Lactic Acid Level 3.27*H 06/25/22 20:50: Lactic Acid Level 3.07*H 06/26/22 05:43: Lactic Acid Level 3.10*H, White Blood Count 8.4, Red Blood Count 3.25L, Hemoglobin 9.9L, Hematocrit 30L, Mean Corpuscular Volume 93, Mean Corpuscular Hemoglobin 31, Mean Corpuscular Hemoglobin Concent 33, Red Cell Distribution Width 17.3H, Platelet Count 26*L, Mean Platelet Volume 13.7H, Immature Granulocyte % (Auto) 3, Neutrophils (%) (Auto) 78H, Lymphocytes (%) (Auto) 10L, Monocytes (%) (Auto) 8, Eosinophils (%) (Auto) 0, Basophils (%) (Auto) 1, Neutrophils # (Auto) 6.6, Lymphocytes # (Auto) 0.8L, Monocytes # (Auto) 0.7, Eosinophils # (Auto) 0.0, Basophils # (Auto) 0.0, Immature Granulocyte # (Auto) 0.3H, Percent Immature Platelet Fraction 17.6H, Prothrombin Time 15.7H, INR Comment 1.2, Magnesium Level 1.6 06/26/22 06:03: Sodium Level 142, Potassium Level 4.2, Chloride Level 99, Carbon Dioxide Level 20L, Anion Gap 23H, Blood Urea Nitrogen 37H, Creatinine 0.89, Estimat Glomerular Filtration Rate 70, BUN/Creatinine Ratio 42, Glucose Level 109H, Calcium Level 9.9 Assessment/Plan Assessment/Plan Assessment/Plan Pleural effusion - right lung Liver with multiple masses Lung masses Thrombocytopenia Patient will need a diagnostic and therapeutic thoracentesis on right lung pleural effusion today, first must transfuse platelets before procedure, no platelets in house so waiting for them to be delivered. Monitor WBC and platelet count with AM lab tomorrow. GALLO DELGADO DO 06/26/22 8420: Subjective Time Seen by a Provider: 12:13 Subjective/Events-last exam Pt seen and examined, appears comfortable in bed and not in any respiratory dist ress. Pt states breathing is ok when I saw her. Review of Systems General: Chills, Fatigue, Appetite (has no appetite, takes one bite of most foods) Pulmonary: Dyspnea Cardiovascular: No: Chest Pain Gastrointestinal: Abdominal Pain; No: Nausea, Vomiting Musculoskeletal: back pain Objective Exam General Appearance: Anxious, Chronically ill, Moderate Distress, Thin Respiratory: Accessory Muscle Use, Decreased Breath Sounds (diminished at right lung base) Cardiovascular: No Murmur, Tachycardia Gastrointestinal: soft; No distended; tenderness (RUQ), hepatomegaly Assessment/Plan Assessment/Plan Assessment/Plan Pleural effusion - right lung Liver with multiple masses Lung masses Thrombocytopenia Patient will need a diagnostic and therapeutic thoracentesis on right lung pleural effusion; unfortunately first must transfuse platelets before procedure and there are no platelets in house. They are supposed to be coming in sometime tonight. Monitor WBC and platelet count with AM lab tomorrow. Plan to do thoracentesis an hour after platelets are transfused. Supervisory-Addendum Brief Verification & Attestation Participated in pt care: history, MDM, physical Personally performed: exam, history, MDM, supervision of care Care discussed with: Medical Student Procedures: n/a Verification and Attestation of Medical Student E/M Service A medical student performed and documented this service. I then reviewed and verified all information documented by the medical student and made mo difications to such information, when appropriate. I personally performed a physical exam, medical decision making and then discussed any differences between the notes and made revisions as necessary to create one note. Gallo Delgado , 06/26/22 , 18:49 CHELE WINCHESTER Jun 26, 2022 10:31 GALLO DELGADO DO Jun 26, 2022 18:50
--- NOTE | 2022-06-26 12:05 | Consultation-Cardiology ---
HPI-Cardiology Cardiology Consultation: Date of Consultation 06/26/22 Time Seen by a Provider: 10:00 Date of Admission 06/25/22 Attending Physician Augie Franklin MD Admitting Physician Admitting Physician: Karina Burton MD Attending Physician: Karina Burton MD Consulting Physician LINDA KING MD, MA, FACP, FACC, FSCAI, CCDS Physician requesting consult: Dr Burton HPI: Chief Complaint: Reason for Card consult: A Fib with RVR 71 yo woman admitted with increasing shortness of breath, gen malaise, and wgt loss to Dr Burton's. Diagnosed large R pleural eff and probable widespread metastasis. Went into A Fib with RVR this am. Transferred to ICU. We have been asked to see her. She notes gen malaise and weakness. Denies focal weakness. Denies cp or syncope or swelling. Review of Systems-Cardiology Review of Systems Constitutional: malaise, tiredness, weight loss Eyes: No vision change Ears/Nose/Throat: No ear discharge, No nasal drainage, No recent hearing loss Respiratory: As described under HPI Cardiovascular: As described under HPI Gastrointestinal: No diarrhea, No nausea, No vomiting Genitourinary: No dysuria, No hematuria, No urine frequency changes Musculoskeletal: back pain (chronic) Skin: No rash, No ulcerations Psychiatric/Neurological: No seizure, No focal weakness, No syncope Hematologic: No bleeding abnormalities [id number] Hx Patient Social History Marrital Status: Smoking Status: Former Smoker (1ppd since teenage years. Quit 5 months ago) Have you traveled recently?: No Alcohol Use?: No (Quit 5 months ago) Pt feels they are or have been: No Tobacco type used: Cigarettes Past Medical History PMH As described under Assessment. Family Medical History Family Medical History: She does not report fam h/o early CAD or SCD Allergies and Home Medications Allergies Coded Allergies: meloxicam (Verified Allergy, Mild, SOA, 06/25/22) Patient Home Medication List Home Medication List Reviewed: Yes Amlodipine Besylate (Amlodipine Besylate) 10 Mg Tablet, 10 MG PO DAILY, (Reported) Entered as Reported by: NIK GARNICA on 06/18/17 1610 Aspirin (Aspir 81) 81 Mg Tablet., 325 MG PO BID Prescribed by: SHLOMO MULLINS on 06/19/17 1201 Cyclobenzaprine HCl (Cyclobenzaprine HCl) 10 Mg Tablet, 10 MG PO Q8H PRN for SPASMS Prescribed by: PENELOPE RAHMAN on 05/30/22 1348 Docusate Sodium (Colace) 100 Mg Capsule, 100 MG PO BID Prescribed by: ROMEL ELIZONDO on 06/19/17 0935 Gabapentin (Gabapentin) 100 Mg Capsule, 100 MG PO Q8H Prescribed by: PENELOPE RAHMAN on 05/30/22 1348 Hydrocodone Bit/Acetaminophen (Lortab 5 Mg Tablet) 1 Each Tablet, 1-2 TAB PO Q4H PRN for PAIN-MODERATE TO SEVERE Prescribed by: ROMEL ELIZONDO on 06/19/17 0931 Lisinopril (Lisinopril) 20 Mg Tablet, 40 MG PO DAILY, (Reported) Entered as Reported by: MICHAELA ACEVES on 06/18/17 0031 Metoprolol Tartrate (Metoprolol Tartrate) 100 Mg Tablet, 200 MG PO BID, (Reported) Entered as Reported by: NIK GARNICA on 06/18/17 1610 Sulfamethoxazole/Trimethoprim (Bactrim Ds Tablet) 1 Each Tablet, 1 EACH PO BID Prescribed by: PENELOPE RAHMAN on 05/30/22 1358 Physical Exam-Cardiology Physical Exam Vital Signs/I&O 06/26/22 06/26/22 06/26/22 06/26/22 01:00 02:05 02:11 02:35 Pulse 110 125 Resp 26 B/P (MAP) 134/94 (107) Pulse Ox 82 92 O2 Delivery Nasal Cannula Nasal Cannula Nasal Cannula O2 Flow Rate 3.00 6.00 6.00 06/26/22 06/26/22 06/26/22 06/26/22 02:45 03:00 03:01 03:18 Pulse 122 121 122 Resp 20 B/P (MAP) 160/90 (113) 136/86 (103) Pulse Ox 95 95 93 O2 Delivery Nasal Cannula Nasal Cannula Nasal Cannula O2 Flow Rate 6.00 6.00 6.00 06/26/22 06/26/22 06/26/22 06/26/22 04:00 04:00 04:00 05:00 Temp 36.8 Pulse 112 114 Resp 23 19 B/P (MAP) 140/86 (104) 118/70 (86) Pulse Ox 91 92 92 O2 Delivery Nasal Cannula Nasal Cannula OxyMask O2 Flow Rate 6.00 6.00 8.00 06/26/22 06/26/22 06/26/22 06/26/22 06:00 06:55 07:00 07:00 Pulse 114 115 112 Resp B/P (MAP) 120/72 (88) 118/70 (86) Pulse Ox 90 91 O2 Delivery OxyMask OxyMask OxyMask O2 Flow Rate 8.00 10.00 10.00 06/26/22 06/26/22 06/26/22 06/26/22 07:55 07:57 08:00 08:00 Temp 37.1 Pulse 123 B/P (MAP) 132/85 (101) Pulse Ox 96 96 96 O2 Delivery High Flow N/C High Flow N/C High Flow N/C O2 Flow Rate 5.00 5.00 5.00 06/26/22 06/26/22 06/26/22 06/26/22 09:00 09:04 10:00 11:00 Pulse 116 115 108 Resp 20 22 B/P (MAP) 105/75 (85) 115/73 (87) 123/68 (86) Pulse Ox 96 97 95 98 O2 Delivery High Flow N/C Nasal Cannula High Flow N/C High Flow N/C O2 Flow Rate 5.00 5.00 5.00 5.00 06/26/22 00:00 Intake Total 2500 ml Output Total 200 ml Balance 2300 ml Capillary Refill : Less Than 3 Seconds Constitutional: AAO x 3, well-developed, other (Thin appearing) HEENT: PERRL, EOMI; No xanthelasmas are seen Neck: carotid pulses are 2 + bilaterally, with good upstrokes Respiratory: No accessory muscle use; other (Air entry appears diminished at the bases (R > L)) Cardiovascular: irregularly irregular, S1 and S2, systolic murmur (soft MACKENZIE at card base) Gastrointestinal: No tender; soft; No guarding, No rebound; audible bowel sounds Rectal: deferred Extremities: No clubbing, No cyanosis, No significant edema Neurologic/Psychiatric: oriented x 3, other (moves all limbs equally) Skin: warm/dry; No cyanosis, No cool, No rash on exposed areas, No ulcerations on exposed areas Data Review Labs Laboratory Tests 06/25/22 12:47: Ammonia 23 06/25/22 15:30: Urine Color YELLOW, Urine Clarity CLEAR, Urine pH 5.0, Urine Specific [place] <=1.005, Urine Protein TRACEH, Urine Glucose (UA) NEGATIVE, Urine Ketones TRACEH , Urine Nitrite NEGATIVE, Urine Bilirubin 1+H, Urine Urobilinogen 0.2, Urine Leukocyte Esterase NEGATIVE, Urine RBC (Auto) 1+H, Urine RBC RARE, Urine WBC NONE, Urine Squamous Epithelial Cells NONE, Urine Crystals NONE, Urine Bacteria NEGATIVE, Urine Casts NONE, Urine Mucus NEGATIVE, Urine Culture Indicated NO 06/25/22 15:48: Lactic Acid Level 2.78*H 06/25/22 18:13: Lactic Acid Level 3.27*H 06/25/22 20:50: Lactic Acid Level 3.07*H 06/26/22 05:43: Lactic Acid Level 3.10*H, White Blood Count 8.4, Red Blood Count 3.25L, Hemoglobin 9.9L, Hematocrit 30L, Mean Corpuscular Volume 93, Mean Corpuscular Hemoglobin 31, Mean Corpuscular Hemoglobin Concent 33, Red Cell Distribution Width 17.3H, Platelet Count 26*L, Mean Platelet Volume 13.7H, Immature Granulocyte % (Auto) 3, Neutrophils (%) (Auto) 78H, Lymphocytes (%) (Auto) 10L, Monocytes (%) (Auto) 8, Eosinophils (%) (Auto) 0, Basophils (%) (Auto) 1, Neutrophils # (Auto) 6.6, Lymphocytes # (Auto) 0.8L, Monocytes # (Auto) 0.7, Eosinophils # (Auto) 0.0, Basophils # (Auto) 0.0, Immature Granulocyte # (Auto) 0.3H, Percent Immature Platelet Fraction 17.6H, Prothrombin Time 15.7H, INR C omment 1.2, Magnesium Level 1.6 06/26/22 06:03: Sodium Level 142, Potassium Level 4.2, Chloride Level 99, Carbon Dioxide Level 20L, Anion Gap 23H, Blood Urea Nitrogen 37H, Creatinine 0.89, Estimat Glomerular Filtration Rate 70, BUN/Creatinine Ratio 42, Glucose Level 109H, Calcium Level 9.9 Laboratory Tests 06/25/22 09:55 06/26/22 05:43 06/26/22 06:03 A/P-Cardiology Assessment/Admission Diagnosis New onset A Fib with RVR (first documented on 06/26/22) Probable metastatic disease of unknown primary (lung suspected) Large R pleural eff awaiting thoracentesis Probable sepsis Marked thrombocytopenia of undetermined etiology Discussion and Recomendations * long-acting dilt for vent rate control * not suitable for anticoag (severe thrombocytopenia, awaiting pleural tap) * monitor labs * correct electrolytes * treat sepsis * echo * discussed with LINDA Kapoor MD FACP FAC CCDS Jun 26, 2022 12:05
[2022-06-26] MEDS: NS IV 1000 ML 1,000 ML IV SCH (14:21)
[2022-06-26] MEDS: fentaNYL INJ 100 MCG/2 ML AMP IV PRN (14:21)
[2022-06-26] MEDS ORDERED: dilTIAZem DRIP PRE-MIX 125 ML IV ONE (19:59)
[2022-06-26] MEDS: dilTIAZem DRIP PRE-MIX 125 ML IV SCH (20:03)
[2022-06-26] MEDS ORDERED: LACTATED RINGERS 1,000 ML IV ONE (21:57)
--- NOTE | 2022-06-26 21:58 | Tele-ICU Progress Note ---
Progress Note Called by the nurse with low U/O for the past [address] scan with large Rt pleural effusion bur Lt lung clear. No CHF. Will give 500 ml bolus x 1 and monitor U/O. Chart and labs reviewed. D/W the bedside nurse. Interventions Minor-Other: Low U/O Possible Sepsis with Rt side PNA . Focused Exam Lactate Level 06/25/22 18:13: Lactic Acid Level 3.27*H 06/25/22 20:50: Lactic Acid Level 3.07*H 06/26/22 05:43: Lactic Acid Level 3.10*H Height, Weight, BMI Height: 5'4.50" Weight: 125lbs. oz. 56.020592kz; 18.45 BMI Method:Stated CLINT MUSA MD Jun 26, 2022 21:58
[2022-06-26] MEDS ORDERED: LACTATED RINGERS 500 ML IV SCH (22:00)
[2022-06-27] VITALS (29 sets, daily range): BP systolic 73–127; BP diastolic 49–78
[2022-06-27] MEDS: LORazepam 0.5 MG (ATIVAN) TABLET PO PRN (02:13)
[2022-06-27] MEDS: fentaNYL INJ 100 MCG/2 ML AMP IV PRN ×2 (02:13→09:37)
[2022-06-27] MEDS: RT-ALBUTEROL/IPRATROPIUM 3 ML (DUONEB) VIAL INH SCH ×4 (02:59→19:16)
[2022-06-27] MEDS: NS IV 1000 ML 1,000 ML IV SCH ×2 (03:48→16:53)
[2022-06-27] MEDS: POTASSIUM CL 10MEQ/50ML IVPB 50 ML IV SCH (04:59)
[2022-06-27] MEDS: KCL 20 MEQ TAB (K-DUR) PO SCH (04:59)
[2022-06-27] MEDS: MAGNESIUM 1 GM/100 ML IVPB 100 ML IV SCH (04:59)
[2022-06-27 05:39] LABS: BASOPHILS % (AUTO) 0 % (0-10); EOSINOPHILS % (AUTO) 0 % (0-10); HEMATOCRIT 27 % (35-52); HEMOGLOBIN 8.8 g/dL (11.5-16.0); LYMPHOCYTES # (AUTO) 0.7 10^3/uL (1.0-4.0); LYMPHOCYTES % (AUTO) 10 % (12-44); MEAN CORPUSCULAR HEMOGLOBIN 31 pg (25-34); MEAN CORPUSCULAR HGB CONC 33 g/dL (32-36); MEAN CORPUSCULAR VOLUME 94 fL (80-99); MONOCYTES # (AUTO) 0.6 10^3/uL (0.0-1.0); MONOCYTES % (AUTO) 8 % (0-12); NEUTROPHILS # (AUTO) 5.6 10^3/uL (1.8-7.8); NEUTROPHILS % (AUTO) 79 % (42-75); WHITE BLOOD COUNT 7.1 10^3/uL (4.3-11.0)
[2022-06-27 05:41] LABS: PLATELET COUNT 29 10^3/uL (130-400)
[2022-06-27 06:03] LABS: PHOSPHORUS 2.5 MG/DL (2.3-4.7)
[2022-06-27 06:05] LABS: MAGNESIUM 1.9 MG/DL (1.6-2.4)
--- NOTE | 2022-06-27 06:08 | Progress Note - Surgery ---
CHELE WINCHESTER 06/27/22 0608: Subjective Date Seen by a Provider: Jun 27, 2022 Time Seen by a Provider: 06:15 Subjective/Events-last exam Patient is doing worse than yesterday. Her work of breathing has increased since yesterday which is worsened by anxiety. She is increasingly disoriented but able to answer all questions with repeated prompting. She still has skinner catheter in and is not ambulating. Review of Systems General: No Chills; Night Sweats, Fatigue, Appetite (she continues to have no appetite) HEENT: No Head Aches; Dysphasia (because of dry mouth), Sore Throat (because of dry mouth) Pulmonary: Dyspnea; No Cough Cardiovascular: No: Chest Pain, Lt Headedness Gastrointestinal: No: Nausea, Vomiting, Abdominal Pain, Hematochezia Genitourinary: No Dysuria (has catheter in, denies any pain), No Hematuria Musculoskeletal: No: neck pain, back pain Neurological: Weakness, Confusion Focused Exam Lactate Level 06/25/22 18:13: Lactic Acid Level 3.27*H 06/25/22 20:50: Lactic Acid Level 3.07*H 06/26/22 05:43: Lactic Acid Level 3.10*H Objective Exam Vital Signs Date Time Temp Pulse Resp B/P (MAP) Pulse Ox O2 Delivery O2 Flow Rate FiO2 06/27/22 06:00 107 28 112/55 (74) 91 Vapotherm 80.00 25.00 06/27/22 05:33 Vapotherm 80.00 25.00 06/27/22 05:30 Vapotherm 90.00 30.00 06/27/22 05:28 94 Vapotherm 35.00 100 06/27/22 05:28 Vapotherm 100.00 40.00 06/27/22 05:00 113 24 90/58 (69) 95 High Flow N/C 10.00 06/27/22 04:32 High Flow N/C 10.00 06/27/22 04:00 107 26 113/75 (88) 92 High Flow N/C 8.00 06/27/22 03:35 92 High Flow N/C 8.00 06/27/22 03:35 36.9 High Flow N/C 8.00 06/27/22 03:00 108 26 113/76 (88) 91 High Flow N/C 8.00 06/27/22 02:59 93 High Flow N/C 8.00 06/27/22 02:00 129 25 104/65 (78) 91 High Flow N/C 8.00 06/27/22 01:35 High Flow N/C 8.00 06/27/22 01:00 112 25 117/68 (84) 91 High Flow N/C 10.00 06/27/22 01:00 120 06/27/22 00:00 81 High Flow N/C 10.00 06/27/22 00:00 37.0 116 21 127/78 (94) 81 High Flow N/C 10.00 06/26/22 23:00 123 24 114/72 (86) 94 High Flow N/C 5.00 06/26/22 22:00 144 23 109/68 (82) 93 High Flow N/C 5.00 06/26/22 21:58 High Flow N/C 5.00 06/26/22 21:29 94 High Flow N/C 8.00 06/26/22 21:00 140 22 97/67 (77) 91 High Flow N/C 8.00 06/26/22 20:00 122 24 98/64 (75) 90 High Flow N/C 8.00 06/26/22 19:52 High Flow N/C 8.00 06/26/22 19:30 99 High Flow N/C 5.00 06/26/22 19:21 High Flow N/C 5.00 06/26/22 19:00 120 06/26/22 19:00 36.6 120 25 99/78 (85) 99 High Flow N/C 5.00 06/26/22 18:00 124 27 93/69 (77) 98 High Flow N/C 5.00 06/26/22 17:00 124 29 104/72 (83) 99 High Flow N/C 5.00 06/26/22 16:00 122 26 105/72 (83) High Flow N/C 5.00 06/26/22 16:00 100 High Flow N/C 5.00 06/26/22 16:00 35.6 06/26/22 15:00 120 22 111/71 (84) 98 High Flow N/C 5.00 06/26/22 14:59 98 Nasal Cannula 5.00 06/26/22 14:00 117 23 103/77 (86) 100 High Flow N/C 5.00 06/26/22 13:00 111 23 123/76 (92) 100 High Flow N/C 5.00 06/26/22 12:29 112 06/26/22 12:00 112 23 116/75 (89) 98 High Flow N/C 5.00 06/26/22 12:00 36.7 06/26/22 12:00 96 High Flow N/C 5.00 06/26/22 11:00 108 22 123/68 (86) 98 High Flow N/C 5.00 06/26/22 10:00 115 22 115/73 (87) 95 High Flow N/C 5.00 06/26/22 09:04 97 Nasal Cannula 5.00 06/26/22 09:00 116 20 105/75 (85) 96 High Flow N/C 5.00 06/26/22 08:00 123 132/85 (101) 96 High Flow N/C 5.00 06/26/22 08:00 96 High Flow N/C 5.00 06/26/22 07:57 37.1 06/26/22 07:55 96 High Flow N/C 5.00 06/26/22 07:00 112 22 118/70 (86) 91 OxyMask 10.00 06/26/22 07:00 115 06/26/22 06:55 OxyMask 10.00 I & O 06/27/22 07:00 Intake Total 2080 ml Output Total 695 ml Balance 1385 ml Capillary Refill : Less Than 3 Seconds General Appearance: Anxious, Chronically ill, Moderate Distress, Thin HEENT: PERRL/EOMI, Other (dry mucous membranes) Neck: Non Tender, Supple Respiratory: Accessory Muscle Use, Decreased Breath Sounds (diminished at right lung base), Respiratory Distress; No Wheezing Cardiovascular: No Murmur, Tachycardia Peripheral Pulses: 2+ Dorsalis Pedis (R), 2+ Left Dors-Pedis (L), 2+ Radial Pulses (R), 2+ Radial Pulses (L) Gastrointestinal: soft; No distended; tenderness (RUQ, RLQ), hepatomegaly Extremity: Normal Capillary Refill, No Calf Tenderness, No Pedal Edema, Other (lesions on LE b/l) Neurologic/Psychiatric: Depressed Affect, Disoriented Skin: Warm/Dry, Ecchymosis (b/l LE), Jaundice Lymphatic: No Adenopathy Results Lab Laboratory Tests 06/26/22 06:03: Sodium Level 142, Potassium Level 4.2, Chloride Level 99, Carbon Dioxide Level 20L, Anion Gap 23H, Blood Urea Nitrogen 37H, Creatinine 0.89, Estimat Glomerular Filtration Rate 70, BUN/Creatinine Ratio 42, Glucose Level 109H, Calcium Level 9.9 06/27/22 04:39: White Blood Count 7.1, Red Blood Count 2.86L, Hemoglobin 8.8L, Hematocrit 27L, Mean Corpuscular Volume 94, Mean Corpuscular Hemoglobin 31, Mean Corpuscular Hemoglobin Concent 33, Red Cell Distribution Width 18.2H, Platelet Count 29*L, Mean Platelet Volume 14.0H, Immature Granulocyte % (Auto) 2, Neutrophils (%) (Auto) 79H, Lymphocytes (%) (Auto) 10L, Monocytes (%) (Auto) 8, Eosinophils (%) (Auto) 0, Basophils (%) (Auto) 0, Neutrophils # (Auto) 5.6, Lymphocytes # (Auto) 0.7L, Monocytes # (Auto) 0.6, Eosinophils # (Auto) 0.0, Basophils # (Auto) 0.0, Immature Granulocyte # (Auto) 0.2H, Percent Immature Platelet Fraction 16.0H Microbiology 06/25/22 Blood Culture - Preliminary, Resulted No growth Assessment/Plan Assessment/Plan Assessment/Plan Pleural effusion - right lung Liver with multiple masses Lung masses Thrombocytopenia Patient will need a diagnostic and therapeutic thoracentesis on right lung pleural effusion. Platelets were delivered yesterday, will transfuse around 9AM with thoracentesis to follow. Monitor WBC and platelet count with AM lab tomorrow. Plan to do thoracentesis an hour after platelets are transfused. GALLO DE LA PAZ DO 06/27/22 1239: Subjective Time Seen by a Provider: 11:07 Subjective/Events-last exam Pt seen and examined, requiring more O2 today and work of breathing has increased. Pt anxious but also disoriented. Review of Systems General: No Chills; Night Sweats, Fatigue, Appetite (she continues to have no appetite) HEENT: Dysphasia (because of dry mouth) Pulmonary: Dyspnea; No Cough Cardiovascular: No: Chest Pain Gastrointestinal: No: Nausea, Vomiting, Abdominal Pain Musculoskeletal: neck pain Neurological: Weakness, Confusion Objective Exam General Appearance: Anxious, Chronically ill, Moderate Distress, Thin HEENT: PERRL/EOMI, Other (dry mucous membranes) Respiratory: Accessory Muscle Use, Crackles, Decreased Breath Sounds (diminished at right lung base), Respiratory Distress; No Wheezing Cardiovascular: No Murmur, Tachycardia Gastrointestinal: soft; No distended; tenderness (RUQ, RLQ), hepatomegaly Extremity: Other (lesions on LE b/l) Neurologic/Psychiatric: Depressed Affect, Disoriented Skin: Warm/Dry, Ecchymosis (b/l LE) Assessment/Plan Assessment/Plan Assessment/Plan Pleural effusion - right lung Liver with multiple masses Lung masses Thrombocytopenia Patient will need a diagnostic and therapeutic thoracentesis on right lung pleural effusion. Platelets were transfused and finished around 10AM; will do thoracentesis now. Monitor WBC and platelet count with AM lab tomorrow. Will get consent for thoracentesis. Supervisory-Addendum Brief Verification & Attestation Participated in pt care: history, MDM, physical Personally performed: exam, history, MDM, supervision of care Care discussed with: Medical Student Procedures: n/a Verification and Attestation of Medical Student E/M Service A medical student performed and documented this service. I then reviewed and verified all information documented by the medical student and made modifications to such information, when appropriate. I personally performed a physical exam, medical decision making and then discussed any differences between the notes and made revisions as necessary to create one note. Gallo De La Paz , 06/27/22 , 12:39 CHELE WINCHESTER Jun 27, 2022 06:08 GALLO DE LA PAZ DO Jun 27, 2022 12:39
[2022-06-27] MEDS ORDERED: NS IV 500 ML 500 ML ONE (06:41)
[2022-06-27 06:49] LABS: ALBUMIN 2.6 GM/DL (3.2-4.5); POTASSIUM 3.8 MMOL/L (3.6-5.0)
[2022-06-27 06:50] LABS: CALCIUM 9.4 MG/DL (8.5-10.1)
[2022-06-27 06:52] LABS: TOTAL PROTEIN 5.5 GM/DL (6.4-8.2)
[2022-06-27 06:53] LABS: BILIRUBIN,TOTAL 1.9 MG/DL (0.1-1.0)
[2022-06-27 06:55] LABS: CREATININE SERUM 0.72 MG/DL (0.60-1.30); PHOSPHORUS 2.5 MG/DL (2.3-4.7)
[2022-06-27 06:58] LABS: MAGNESIUM 1.9 MG/DL (1.6-2.4)
[2022-06-27] MEDS: NS IV 500 ML 500 ML IV SCH (08:24)
--- NOTE | 2022-06-27 10:09 | Progress Note - Hospitalist ---
Subjective HPI/CC On Admission Date Seen by Provider: Jun 27, 2022 Time Seen by Provider: 09:00 Patient is a 71-year-old female with past medical history of hepatitis C status status post curative treatment who presented to the emergency department due to weakness and shortness of breath. She reports this has been going on for over 5 months. She was seen in the emergency room last month for the pain. She has also been seen by her primary care physician, Dr. Franklin. She was treated with physical therapy and Flexeril. Yesterday her shortness of breath and pain worsened prompting her to seek evaluation. She was requiring a 1 wheelchair to ambulate when she is normally independent. Her reports that she has had significant weight loss of 15 pounds as well. He also reports decreased appetite and subsequent decreased urine output. She denies any incontinence, numbness, tingling. Her only complaint today is that she has anxiety. In the emergency room she was found to have a large pleural effusion and was hypoxic. Due to elevated liver enzymes and history of hepatitis C she underwent a CT chest abdomen pelvis which revealed innumerable liver and splenic masses with presumed widely metastatic disease. I did inform the patient and her of this this morning and the need for thoracentesis and sent for pathology. Subjective/Events-last exam Pt reports being tired. States she was up a lot over night. Somewhat sleepy throughout the rest of exam. She was placed on Vapotherm overnight. Discussed finding of CT again with her and and my worry that palliation it the best we could hope for. Focused Exam Lactate Level 06/25/22 18:13: Lactic Acid Level 3.27*H 06/25/22 20:50: Lactic Acid Level 3.07*H 06/26/22 05:43: Lactic Acid Level 3.10*H Objective Exam Vital Signs Vital Signs Date Time Temp Pulse Resp B/P (MAP) Pulse Ox O2 Delivery O2 Flow Rate FiO2 06/27/22 11:00 112 26 109/61 (77) 89 Vapotherm 80.00 25.00 06/27/22 09:54 36.9 80 Capillary Refill : Less Than 3 Seconds General Appearance: Chronically ill, Cachetic Respiratory: No Accessory Muscle Use, Decreased Breath Sounds, Other (shallow breathing) Cardiovascular: No Murmur, Irregularly Irregular, Tachycardia Gastrointestinal: Normal Bowel Sounds, Non Tender, Soft Neurologic/Psychiatric: Alert, Other (oriented to major details only ) Results/Procedures Lab Laboratory Tests 06/27/22 04:39 Patient resulted labs reviewed. Imaging: Reviewed Imaging Report Assessment/Plan Assessment and Plan Assess & Plan/Chief Complaint Acute hypoxic respiratory failure Pleural effusion MAT protocol Now on Vapotherm Thoracentesis later today- was delayed due to thrombocytopenia and that there were not platelets in house Platelets currently transfusing TeleICU consulted, appreciate recs Widely metastatic disease Pleural effusion (likely malignant) Liver masses Spleen masses Bony metastatic disease (T10 and L1) Cachexia Imaging and symptoms consistent with advanced cancer Discussed with patient and imaging findings Discussed with Dr Delgado who will plan for thoracentesis today now that platelets available Plan to send for pathology Discussed with Dr Vasquez 06/26 and as in neurovascularly intact will need outpatient follow up Monitor closely given L1 fracture Will need oncology consult- prefers to see someone local (has previously follow with [facility] for hepatology) Lactic acidosis elevated- not sepsis- unable to clear due to liver disease Atrial fibrillation with RVR Cardiology consulted, appreciate recs Echo ordered Hold Lovenox for thoracentesis and due to thrombocytopenia telemetry Continued cardizem, now on gtt Anemia of chronic disease Hgb 9.9 trend DVT ppx: SCDs only due to thrombocytopenia Return to room around 1030 to discuss with patient's prognosis as she has had short runs of V. tach on telemetry. We discussed the extent of her cancer and her body's response to this with multiorgan failure. Discussed the r isk and benefits of CPR in the event of cardiac arrest and that it would very likely be futile. He expressed understanding and stated he did not want her to suffer should her heart stop. He elected to make her DNR. Order placed. Supervisor [employer] contacted and in route to offer support to patient and her . 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
[2022-06-27] MEDS ORDERED: LORazepam ORAL CONCENTRATE 2 MG/ML 30 ML (ATIVAN) PO PRN (10:30)
--- NOTE | 2022-06-27 11:00 | Tele-ICU Progress Note ---
Subjective Date Seen by a Provider: Jun 27, 2022 Time Seen by a Provider: 11:00 Subjective/Events-last exam (Tele-ICU Physician , Progress Note ) Available chart/ vitals / labs / Images reviewed Video assessment done using teleICU camera, rest of exam as per RN Discussed with RN Events overnight : Respiratory - VT I/O = Drips: Pressors- no Consultants: Hospital course: (06/26) 71/F- WEAKNESS, HYPOXIA, ABDO PAIN--Hep-C, Liver CA--extensive mets, spine, lung, chest, abdo, R Pl. Effusion needs thoracnt. - Plts low. Anxiety and yelling, sitter provided. 15 lb wt loss in one month. // afib,// for 06-27 needs one unit plt./ in prep for thoracentesis. 06/27 - VT 25L 80% A/P Acute hypoxic respiratory failure - VT 25L 80% with VO ./ effusion Pleural effusion -Thoracentesis planned after PLT transfusion INDIRA - anuric last few hours - follow withj labs / UO Widely metastatic disease based on images (Liver masses Spleen masses Bony metastatic disease (T10 and L1) Atrial fibrillation with RVR -New onset - cardizem gtt - cansds consulted Anemia of chronic disease -Hgb 9.9 trend Encephalopathy - worsenign - as per RN - after discussion with by PCP - patient is DNR/DNI - foll ow closely Lines : , (Central Line Necessity Reviewed) [place]: + OG: Nutrition: Analgesia: Anxiety/ delirium VTE Prophylaxis: contraindic Stress Ulcer Prophylaxis: Plans in collaboration with bedside consultants and IM MDs. Discussed with RN to reach out if any questions or concerns A total of 20 minutes of critical care time was devoted to this patient today, required to treat and/or prevent further deterioration of critical care condition ( as above ) . Sepsis Event Evaluation Height, Weight, BMI Height: 5'4.50" Weight: 125lbs. oz. 56.194081dc; 18.45 BMI Method:Stated Focused Exam Lactate Level 06/25/22 18:13: Lactic Acid Level 3.27*H 06/25/22 20:50: Lactic Acid Level 3.07*H 06/26/22 05:43: Lactic Acid Level 3.10*H Exam Exam Patient acknowledged, consented, and participated in this virtual visit which was conducted using real time audio/video Vital Signs Date Time Temp Pulse Resp B/P (MAP) Pulse Ox O2 Delivery O2 Flow Rate FiO2 06/27/22 10:00 114 25 90/63 (72) 90 Vapotherm 80.00 25.00 06/27/22 09:54 36.9 115 26 99/64 92 Vapotherm 25.00 80 06/27/22 09:00 115 25 99/64 (76) 92 Vapotherm 80.00 25.00 06/27/22 08:27 36.8 125 28 94/67 93 Vapotherm 25.00 80 06/27/22 08:09 36.6 130 24 95/63 94 Vapotherm 25.00 80 06/27/22 08:00 117 27 95/63 (74) 90 Vapotherm 80.00 25.00 06/27/22 08:00 20 93 Vapotherm 80.00 25.00 06/27/22 08:00 92 Vapotherm 25.00 80 06/27/22 07:15 37.0 116 24 101/68 (79) 93 Vapotherm 75.00 25.00 06/27/22 07:07 109 06/27/22 07:00 111 22 80/56 (64) 93 Vapotherm 75.00 25.00 06/27/22 06:54 92 Vapotherm 25.00 75 06/27/22 06:21 Vapotherm 75.00 25.00 06/27/22 06:00 107 28 112/55 (74) 91 Vapotherm 80.00 25.00 06/27/22 05:33 Vapotherm 80.00 25.00 06/27/22 05:30 Vapotherm 90.00 30.00 06/27/22 05:28 94 Vapotherm 35.00 100 06/27/22 05:28 Vapotherm 100.00 40.00 06/27/22 05:00 113 24 90/58 (69) 95 High Flow N/C 10.00 06/27/22 04:32 High Flow N/C 10.00 06/27/22 04:00 107 26 113/75 (88) 92 High Flow N/C 8.00 06/27/22 03:35 92 High Flow N/C 8.00 06/27/22 03:35 36.9 High Flow N/C 8.00 06/27/22 03:00 108 26 113/76 (88) 91 High Flow N/C 8.00 06/27/22 02:59 93 High Flow N/C 8.00 06/27/22 02:00 129 25 104/65 (78) 91 High Flow N/C 8.00 06/27/22 01:35 High Flow N/C 8.00 06/27/22 01:00 112 25 117/68 (84) 91 High Flow N/C 10.00 06/27/22 01:00 120 06/27/22 00:00 81 High Flow N/C 10.00 06/27/22 00:00 37.0 116 21 127/78 (94) 81 High Flow N/C 10.00 06/26/22 23:00 123 24 114/72 (86) 94 High Flow N/C 5.00 06/26/22 22:00 144 23 109/68 (82) 93 High Flow N/C 5.00 06/26/22 21:58 High Flow N/C 5.00 06/26/22 21:29 94 High Flow N/C 8.00 06/26/22 21:00 140 22 97/67 (77) 91 High Flow N/C 8.00 06/26/22 20:00 122 24 98/64 (75) 90 High Flow N/C 8.00 06/26/22 19:52 High Flow N/C 8.00 06/26/22 19:30 99 High Flow N/C 5.00 06/26/22 19:21 High Flow N/C 5.00 06/26/22 19:00 120 06/26/22 19:00 36.6 120 25 99/78 (85) 99 High Flow N/C 5.00 06/26/22 18:00 124 27 93/69 (77) 98 High Flow N/C 5.00 06/26/22 17:00 124 29 104/72 (83) 99 High Flow N/C 5.00 06/26/22 16:00 122 26 105/72 (83) High Flow N/C 5.00 06/26/22 16:00 100 High Flow N/C 5.00 06/26/22 16:00 35.6 06/26/22 15:00 120 22 111/71 (84) 98 High Flow N/C 5.00 06/26/22 14:59 98 Nasal Cannula 5.00 06/26/22 14:00 117 23 103/77 (86) 100 High Flow N/C 5.00 06/26/22 13:00 111 23 123/76 (92) 100 High Flow N/C 5.00 06/26/22 12:29 112 06/26/22 12:00 112 23 116/75 (89) 98 High Flow N/C 5.00 06/26/22 12:00 36.7 06/26/22 12:00 96 High Flow N/C 5.00 I & O 06/27/22 07:00 Intake Total 2080 ml Output Total 695 ml Balance 1385 ml Height & Weight Height: 5'4.50" Weight: 125lbs. oz. 56.820051jk; 18.45 BMI Method:Stated General Appearance: Chronically ill, Cachetic HEENT: PERRL/EOMI, Other (dry mucous membranes) Neck: Non Tender, Supple Respiratory: No Accessory Muscle Use, Decreased Breath Sounds, Other (shallow breathing) Cardiovascular: No Murmur, Irregularly Irregular, Tachycardia Capillary Refill: Less Than 3 Seconds Peripheral Pulses: 2+ Dorsalis Pedis (R), 2+ Left Dors-Pedis (L), 2+ Radial Pulses (R), 2+ Radial Pulses (L) Gastrointestinal: soft; No distended; tenderness (RUQ, RLQ), hepatomegaly Extremity: Normal Capillary Refill, No Calf Tenderness, No Pedal Edema, Other (lesions on LE b/l) Neurologic/Psychiatric: Alert, Other (oriented to major details only ) Skin: Warm/Dry, Ecchymosis (b/l LE), Jaundice Lymphatic: No Adenopathy Results Lab Laboratory Tests 06/26/22 05:43 06/26/22 06:03 06/27/22 04:39 Assessment/Plan Assessment/Plan 1 IRAIS FLORES MD Jun 27, 2022 11:00
[2022-06-27] MEDS ORDERED: LIDOCAINE 1% INJ 20 ML VIAL ONE (11:19)
--- NOTE | 2022-06-27 12:46 | Diagnostic Imaging Report ---
Indication: Dyspnea, followup thoracentesis. Comparison: 06/25/2022. Discussion: Single portable upright view of the chest was obtained. Small right pleural effusion is decreased. No pneumothorax. Normal heart size. The lungs remain hyperinflated. Diffuse interstitial thickening is stable, likely chronic. Impression: 1. Small decreased right pleural effusion. No pneumothorax. Dictated by: Dictated on workstation # [id number]
--- NOTE | 2022-06-27 12:47 | Progress Note-Post Operative ---
Post-Operative Progess Note Surgeon (s)/Rail[employer] Dining [employer] Steward/Stewardess (s) Surgeon CRISTOBAL DE LA PAZ DO [employer] Dining Car Steward/Stewardess: none Pre-Operative Diagnosis Right Pleural effusion Post-Operative Diagnosis same pending path Procedure & Operative Findings Date of Procedure 06/27/22 Procedure Performed/Findings Right Thoracentesis PROCEDURE NOTE: After informed consent was obtained (site marked), the patient was her bed in the ICU and was sat up on side of bed and then laid down on table. She was sterilely pr epped and draped in normal fashion. I had used an ultrasound probe, to find the largest pocket of fluid in right pleural cavity at about rib interspace between 9 and 10. Next, infiltrated at this spot with local lidocaine and then made a stab incision with #11 blade and carefully advance the Safe-T Centesis needle with catheter. Directly on top of 10th rib and got a good flash of yellowish/red fluid, removed the needle. The catheter was left in place then hooked up to vaccutaine suction and got about 1700ml of fluid out. She tolerated the procedure and the catheter was removed once it stopped draining and a band-aid placed. Anesthesia Type local lidocaine Estimated Blood Loss Estimated blood loss (mL): scant Specimens/Packing Specimens Removed appx 1700ml of pleural fluid CRISTOBAL DE LA PAZ DO Jun 27, 2022 12:47
--- NOTE | 2022-06-27 16:17 | Progress Note - Cardiology ---
Cardiology SOAP Progress Note Subjective: Marked gen weakness and malaise No cp or palp or syncope No n/v Objective: I&O/Vital Signs 06/27/22 06/27/22 06/27/22 06/27/22 04:32 05:00 05:28 05:28 Pulse 113 Resp 24 B/P (MAP) 90/58 (69) Pulse Ox 95 94 O2 Delivery High Flow N/C High Flow N/C Vapotherm Vapotherm O2 Flow Rate 10.00 10.00 100.00 35.00 40.00 FiO2 100 06/27/22 06/27/22 06/27/22 06/27/22 05:30 05:33 06:00 06:21 Pulse 107 Resp 28 B/P (MAP) 112/55 (74) Pulse Ox 91 O2 Delivery Vapotherm Vapotherm Vapotherm Vapotherm O2 Flow Rate 90.00 80.00 80.00 75.00 30.00 25.00 25.00 25.00 06/27/22 06/27/22 06/27/22 06/27/22 06:54 07:00 07:07 07:15 Temp 37.0 Pulse 111 109 116 Resp 22 24 B/P (MAP) 80/56 (64) 101/68 (79) Pulse Ox 92 93 93 O2 Delivery Vapotherm Vapotherm Vapotherm O2 Flow Rate 25.00 75.00 75.00 25.00 25.00 FiO2 75 06/27/22 06/27/22 06/27/22 06/27/22 08:00 08:00 08:00 08:09 Temp 36.6 Pulse 117 130 Resp 20 27 24 B/P (MAP) 95/63 (74) 95/63 Pulse Ox 92 93 90 94 O2 Delivery Vapotherm Vapotherm Vapotherm Vapotherm O2 Flow Rate 25.00 80.00 80.00 25.00 25.00 25.00 FiO2 80 80 06/27/22 06/27/22 06/27/22 06/27/22 08:27 09:00 09:54 10:00 Temp 36.8 36.9 Pulse 125 115 115 114 Resp 28 25 26 25 B/P (MAP) 94/67 99/64 (76) 99/64 90/63 (72) Pulse Ox 93 92 92 90 O2 Delivery Vapotherm Vapotherm Vapotherm Vapotherm O2 Flow Rate 25.00 80.00 25.00 80.00 25.00 25.00 FiO2 80 80 06/27/22 06/27/22 06/27/22 06/27/22 10:00 11:00 12:00 12:35 Temp 37.4 Pulse 112 102 118 Resp 26 24 B/P (MAP) 109/61 (77) 73/56 (62) Pulse Ox 92 89 94 O2 Delivery Vapotherm Vapotherm Vapotherm O2 Flow Rate 25.00 80.00 80.00 25.00 25.00 FiO2 80 06/27/22 06/27/22 06/27/22 06/27/22 13:00 14:00 14:11 15:00 Temp 37.0 Pulse 105 102 112 Resp 19 22 20 B/P (MAP) 96/57 (70) 100/59 (73) 97/59 (72) Pulse Ox 100 100 92 100 O2 Delivery Vapotherm Vapotherm Vapotherm Vapotherm O2 Flow Rate 80.00 80.00 25.00 80.00 25.00 25.00 25.00 FiO2 75 06/27/22 16:00 Pulse 108 Resp 24 B/P (MAP) 106/60 (75) Pulse Ox 100 O2 Delivery Vapotherm O2 Flow Rate 80.00 25.00 06/27/22 00:00 Intake Total 820 ml Output Total 275 ml Balance 545 ml Weight (Pounds): 125 Weight (Calculated Kilograms): 56.160308 Constitutional: AAO x 3, well-developed, other (Thin appearing) Respiratory: No accessory muscle use; other (Air entry appears diminished at the bases (R > L)) Cardiovascular: irregularly irregular, S1 and S2, systolic murmur (soft MACKENZIE at card base) Gastrointestional: No tender; soft; No guarding, No rebound; audible bowel sounds Extremities: No clubbing, No cyanosis, No significant edema Neurologic/Psychiatric: oriented x 3, other (moves all limbs equally) Skin: warm/dry; No cyanosis, No cool, No rash on exposed areas, No ulcerations on exposed areas Results/Procedures: Labs Laboratory Tests 06/27/22 04:39: White Blood Count 7.1, Red Blood Count 2.86L, Hemoglobin 8.8L, Hematocrit 27L, Mean Corpuscular Volume 94, Mean Corpuscular Hemoglobin 31, Mean Corpuscular Hemoglobin Concent 33, Red Cell Distribution Width 18.2H, Platelet Count 29*L, Mean Platelet Volume 14.0H, Immature Granulocyte % (Auto) 2, Neutrophils (%) (Auto) 79H, Lymphocytes (%) (Auto) 10L, Monocytes (%) (Auto) 8, Eosinophils (%) (Auto) 0, Basophils (%) (Auto) 0, Neutrophils # (Auto) 5.6, Lymphocytes # (Auto) 0.7L, Monocytes # (Auto) 0.6, Eosinophils # (Auto) 0.0, Basophils # (Auto) 0.0, Immature Granulocyte # (Auto) 0.2H, Percent Immature Platelet Fraction 16.0H, Sodium Level 141, Potassium Level 3.8, Chloride Level 105, Carbon Dioxide Level 19L, Anion Gap 17H, Blood Urea Nitrogen 25H, Creatinine 0.72, Estimat Glomerular Filtration Rate 90, BUN/Creatinine Ratio 35, Glucose Level 110H, Calcium Level 9.4, Corrected Calcium 10.5H, Phosphorus Level 2.5, Magnesium Level 1.9, Total Bilirubin 1.9H, Aspartate Amino Transf (AST/SGOT) 230H, Alanine Aminotransferase (ALT/SGPT) 64H, Alkaline Phosphatase 593H, Total Protein 5.5L, Albumin 2.6L Microbiology 06/26/22 MRSA Screen - Final, Complete MRSA not isolated 06/25/22 Blood Culture - Preliminary, Resulted No growth Laboratory Tests 06/26/22 05:43 06/26/22 06:03 06/27/22 04:39 A/P: Assessment: New onset A Fib with RVR (first documented on 06/26/22) - echo on 06/26/22: The cavity size is normal. LVEF 65-70%. There were no regional wall motion abnormalities identified. Aortic valve: Thickening, consistent with sclerosis. Pulmonary arteries: Systolic pressure is in the range of 45 mm Hg to 50 mm Hg. Probable metastatic disease of unknown primary (lung suspected) - Large R pleural eff treated with thoracentesis on (Dr Delgado and Dr Burton managing) Probable sepsis Marked thrombocytopenia of undetermined etiology Plan: * complex management * prognosis appears poor * dilt for vent rate control * not suitable for anticoag (severe thrombocytopenia) * monitor labs * treat sepsis * discussed with LINDA Kapoor MD FACP [facility] Jun 27, 2022 16:17
[2022-06-27] MEDS: dilTIAZem DRIP PRE-MIX 125 ML IV SCH (16:53)
[2022-06-27] MEDS ORDERED: ALBUMIN 5% 12.5 GM/250 ML 250 ML IV ONE ×2 (20:30→20:42)
[2022-06-27 21:12] LABS: BASOPHILS % (AUTO) 0 % (0-10); EOSINOPHILS % (AUTO) 0 % (0-10); HEMATOCRIT 25 % (35-52); HEMOGLOBIN 7.8 g/dL (11.5-16.0); LYMPHOCYTES # (AUTO) 0.4 10^3/uL (1.0-4.0); LYMPHOCYTES % (AUTO) 9 % (12-44); MEAN CORPUSCULAR HEMOGLOBIN 30 pg (25-34); MEAN CORPUSCULAR HGB CONC 32 g/dL (32-36); MEAN CORPUSCULAR VOLUME 95 fL (80-99); MEAN PLATELET VOLUME 11.5 fL (9.0-12.2); MONOCYTES # (AUTO) 0.4 10^3/uL (0.0-1.0); MONOCYTES % (AUTO) 9 % (0-12); NEUTROPHILS # (AUTO) 3.8 10^3/uL (1.8-7.8); NEUTROPHILS % (AUTO) 80 % (42-75); PLATELET COUNT 47 10^3/uL (130-400); WHITE BLOOD COUNT 4.8 10^3/uL (4.3-11.0)
--- NOTE | 2022-06-27 21:22 | Diagnostic Imaging Report ---
CLINICAL INDICATION: Patient with hypotension, status post thoracentesis. EXAM: Portable chest x-ray upright view. COMPARISON: Chest x-ray dated 06/27/2022 at 1226 hours. FINDINGS AND IMPRESSION: 1: There is no pneumothorax. 2: There is a small right pleural effusion which is slightly increased in the interim. There has been development of patchy airspace opacities in the right lung base which has slightly progressed and may represent lung infiltrates. 3: The remainder of this exam shows no significant interval change compared to the prior study of comparison. Dictated by: Dictated on workstation # [id number]
[2022-06-28] VITALS (26 sets, daily range): BP systolic 89–142; BP diastolic 45–80
[2022-06-28] MEDS: RT-ALBUTEROL/IPRATROPIUM 3 ML (DUONEB) VIAL INH SCH ×4 (02:15→22:25)
[2022-06-28 05:12] LABS: BASOPHILS % (AUTO) 0 % (0-10); EOSINOPHILS % (AUTO) 0 % (0-10)
[2022-06-28 05:14] LABS: HEMATOCRIT 23 % (35-52); HEMOGLOBIN 7.3 g/dL (11.5-16.0); LYMPHOCYTES # (AUTO) 0.4 10^3/uL (1.0-4.0); LYMPHOCYTES % (AUTO) 8 % (12-44); MEAN CORPUSCULAR HEMOGLOBIN 30 pg (25-34); MEAN CORPUSCULAR HGB CONC 31 g/dL (32-36); MEAN CORPUSCULAR VOLUME 95 fL (80-99); MEAN PLATELET VOLUME 12.6 fL (9.0-12.2); MONOCYTES # (AUTO) 0.4 10^3/uL (0.0-1.0); MONOCYTES % (AUTO) 9 % (0-12); NEUTROPHILS # (AUTO) 3.8 10^3/uL (1.8-7.8); NEUTROPHILS % (AUTO) 80 % (42-75); PLATELET COUNT 40 10^3/uL (130-400); WHITE BLOOD COUNT 4.7 10^3/uL (4.3-11.0)
[2022-06-28 05:26] LABS: ALBUMIN 2.5 GM/DL (3.2-4.5); POTASSIUM 3.4 MMOL/L (3.6-5.0)
[2022-06-28 05:27] LABS: CALCIUM 9.2 MG/DL (8.5-10.1)
[2022-06-28 05:30] LABS: BILIRUBIN,TOTAL 1.9 MG/DL (0.1-1.0)
[2022-06-28 05:32] LABS: CREATININE SERUM 0.73 MG/DL (0.60-1.30)
[2022-06-28 05:35] LABS: MAGNESIUM 1.7 MG/DL (1.6-2.4)
[2022-06-28] MEDS: NS IV 1000 ML 1,000 ML IV SCH ×2 (06:19→06:20)
[2022-06-28] MEDS: NS IV 500 ML 500 ML IV SCH ×2 (06:22→18:10)
[2022-06-28] MEDS: MAGNESIUM 1 GM/100 ML IVPB 100 ML IV SCH ×3 (06:47→08:27)
[2022-06-28] MEDS: POTASSIUM CL 10MEQ/50ML IVPB 50 ML IV SCH ×3 (06:51→08:27)
[2022-06-28] MEDS: KCL 20 MEQ TAB (K-DUR) PO SCH (06:56)
--- NOTE | 2022-06-28 07:41 | Progress Note - Surgery ---
CHELE WINCHESTER 06/28/22 0741: Subjective Date Seen by a Provider: Jun 28, 2022 Time Seen by a Provider: 07:00 Subjective/Events-last exam Patient is doing better today per RN. She is still confused but will answer questions. She denies any shortness of breath, and appears to have decreased work of breathing. She still has her skinner in, she is not ambulating. Review of Systems General: No Chills, No Night Sweats HEENT: No Head Aches, No Sore Throat Pulmonary: No Dyspnea, No Cough Cardiovascular: No: Chest Pain, Lt Headedness Gastrointestinal: No: Nausea, Vomiting, Abdominal Pain Genitourinary: No Dysuria, No Hematuria Musculoskeletal: back pain; No: neck pain, leg pain Neurological: Weakness; No: Numbness Focused Exam Lactate Level 06/25/22 18:13: Lactic Acid Level 3.27*H 06/25/22 20:50: Lactic Acid Level 3.07*H 06/26/22 05:43: Lactic Acid Level 3.10*H Objective Exam Vital Signs Date Time Temp Pulse Resp B/P (MAP) Pulse Ox O2 Delivery O2 Flow Rate FiO2 06/28/22 07:05 105 06/28/22 06:00 103 20 102/66 (78) 92 Vapotherm 60.00 25.00 06/28/22 05:00 98 18 111/61 (78) 94 Vapotherm 60.00 25.00 06/28/22 04:00 96 16 100/62 (75) 94 Vapotherm 60.00 25.00 06/28/22 04:00 Vapotherm 25.00 60 06/28/22 03:32 36.6 06/28/22 03:00 96 24 96/62 (73) 91 Vapotherm 60.00 25.00 06/28/22 02:15 95 Vapotherm 25.00 60 06/28/22 02:00 115 23 89/59 (69) 91 Vapotherm 60.00 25.00 06/28/22 01:00 105 15 92/59 (70) 97 Vapotherm 60.00 25.00 06/28/22 01:00 110 06/28/22 00:00 96 Vapotherm 25.00 60 06/28/22 00:00 123 19 95/64 (74) 96 Vapotherm 60.00 25.00 06/27/22 23:00 112 16 99/62 (74) 99 Vapotherm 60.00 25.00 06/27/22 22:42 98 Vapotherm 25.00 60 06/27/22 22:00 107 22 99/54 (69) 99 Vapotherm 60.00 25.00 06/27/22 21:00 113 25 90/54 (66) 95 Vapotherm 60.00 25.00 06/27/22 20:00 130 26 75/49 (58) 95 Vapotherm 60.00 25.00 06/27/22 20:00 96 Vapotherm 25.00 60 06/27/22 19:50 36.8 170 32 82/49 (60) 95 Vapotherm 60.00 25.00 06/27/22 19:27 37.1 06/27/22 19:14 96 Vapotherm 25.00 60 06/27/22 19:00 116 26 100/49 (66) 96 Vapotherm 60.00 25.00 06/27/22 19:00 120 06/27/22 18:00 99 20 88/52 (64) 97 Vapotherm 60.00 25.00 06/27/22 17:00 110 37 92/62 (72) 91 Vapotherm 80.00 25.00 06/27/22 16:00 37.3 06/27/22 16:00 97 Vapotherm 25.00 60 06/27/22 16:00 108 24 106/60 (75) 100 Vapotherm 80.00 25.00 06/27/22 15:00 112 20 97/59 (72) 100 Vapotherm 80.00 25.00 06/27/22 14:11 92 Vapotherm 25.00 75 06/27/22 14:00 102 22 100/59 (73) 100 Vapotherm 80.00 25.00 06/27/22 13:00 37.0 105 19 96/57 (70) 100 Vapotherm 80.00 25.00 06/27/22 12:35 118 06/27/22 12:00 97 Vapotherm 25.00 60 06/27/22 12:00 37.4 102 24 73/56 (62) 94 Vapotherm 80.00 25.00 06/27/22 11:00 112 26 109/61 (77) 89 Vapotherm 80.00 25.00 06/27/22 10:00 92 Vapotherm 25.00 80 06/27/22 10:00 114 25 90/63 (72) 90 Vapotherm 80.00 25.00 06/27/22 09:54 36.9 115 26 99/64 92 Vapotherm 25.00 80 06/27/22 09:00 115 25 99/64 (76) 92 Vapotherm 80.00 25.00 06/27/22 08:27 36.8 125 28 94/67 93 Vapotherm 25.00 80 06/27/22 08:09 36.6 130 24 95/63 94 Vapotherm 25.00 80 06/27/22 08:00 117 27 95/63 (74) 90 Vapotherm 80.00 25.00 06/27/22 08:00 20 93 Vapotherm 80.00 25.00 06/27/22 08:00 92 Vapotherm 25.00 80 I & O 06/28/22 07:00 Intake Total 1305 ml Output Total 600 ml Balance 705 ml Capillary Refill : Less Than 3 Seconds General Appearance: Chronically ill, Moderate Distress, Thin HEENT: PERRL/EOMI, Moist Mucous Membranes, Other (dry mucous membranes) Neck: Non Tender, Supple Respiratory: Accessory Muscle Use, Decreased Breath Sounds (diminished at right lung base), Respiratory Distress; No Wheezing Cardiovascular: No Murmur, Tachycardia Peripheral Pulses: 2+ Dorsalis Pedis (R), 2+ Left Dors-Pedis (L), 2+ Radial Pulses (R), 2+ Radial Pulses (L) Gastrointestinal: non tender, soft; No distended; tenderness, hepatomegaly Extremity: Calf Tenderness (right calf), Other (lesions on LE b/l) Neurologic/Psychiatric: Depressed Affect, Disoriented Skin: Warm/Dry, Ecchymosis (b/l LE), Pallor Lymphatic: No Adenopathy Results Lab Laboratory Tests 06/27/22 21:00: White Blood Count 4.8, Red Blood Count 2.59L, Hemoglobin 7.8L, Hematocrit 25L, Mean Corpuscular Volume 95, Mean Corpuscular Hemoglobin 30, Mean Corpuscular Hemoglobin Concent 32, Red Cell Distribution Width 18.6H, Platelet Count 47L, Mean Platelet Volume 11.5, Immature Granulocyte % (Auto) 2, Neutrophils (%) (Auto) 80H, Lymphocytes (%) (Auto) 9L, Monocytes (%) (Auto) 9, Eosinophils (%) (Auto) 0, Basophils (%) (Auto) 0, Neutrophils # (Auto) 3.8, Lymphocytes # (Auto) 0.4L, Monocytes # (Auto) 0.4, Eosinophils # (Auto) 0.0, Basophils # (Auto) 0.0, Immature Granulocyte # (Auto) 0.1 06/28/22 05:00: White Blood Count 4.7, Red Blood Count 2.47L, Hemoglobin 7.3L, Hematocrit 23L, Mean Corpuscular Volume 95, Mean Corpuscular Hemoglobin 30, Mean Corpuscular Hemoglobin Concent 31L, Red Cell Distribution Width 18.8H, Platelet Count 40L, Mean Platelet Volume 12.6H, Immature Granulocyte % (Auto) 3, Neutrophils (%) (Auto) 80H, Lymphocytes (%) (Auto) 8L, Monocytes (%) (Auto) 9, Eosinophils (%) (Auto) 0, Basophils (%) (Auto) 0, Neutrophils # (Auto) 3.8, Lymphocytes # (Auto) 0.4L, Monocytes # (Auto) 0.4, Eosinophils # (Auto) 0.0, Basophils # (Auto) 0.0, Immature Granulocyte # (Auto) 0.2H, Percent Immature Platelet Fraction 6.7, Sodium Level 144, Potassium Level 3.4L, Chloride Level 111H, Carbon Dioxide Level 18L, Anion Gap 15H, Blood Urea Nitrogen 22H, Creatinine 0.73, Estimat Glomerular Filtration Rate 89, BUN/Creatinine Ratio 30, Glucose Level 116H, Calcium Level 9.2, Corrected Calcium 10.4H, Phosphorus Level 2.0L, Magnesium Level 1.7, Total Bilirubin 1.9H, Aspartate Amino Transf (AST/SGOT) 134H, Alanine Aminotransferase (ALT/SGPT) 43, Alkaline Phosphatase 426H, Total Protein 5.0L, Albumin 2.5L Microbiology 06/26/22 MRSA Screen - Final, Complete MRSA not isolated 06/25/22 Blood Culture - Preliminary, Resulted No growth Assessment/Plan Assessment/Plan Assessment/Plan Pleural effusion - right lung Liver with multiple masses Lung masses Thrombocytopenia Thoracentesis completed yesterday. Monitor WBC and platelet count with AM lab. Repeat CXR today. GALLO DE LA PAZ DO 06/28/22 1347: Subjective Time Seen by a Provider: 08:51 Subjective/Events-last exam Pt seen and examined, laying in bed comfortably is using much less O2 than last time. Review of Systems General: No Chills, No Night Sweats Pulmonary: Dyspnea; No Cough Cardiovascular: No: Chest Pain Gastrointestinal: No: Nausea, Vomiting, Abdominal Pain Genitourinary: No Dysuria Musculoskeletal: back pain Neurological: Weakness Objective Exam General Appearance: Chronically ill, Mild Distress, Thin Respiratory: Accessory Muscle Use, Decreased Breath Sounds (diminished at right lung base), Respiratory Distress (mild); No Wheezing Cardiovascular: No Murmur, Tachycardia Gastrointestinal: non tender, soft; No distended; hepatomegaly Extremity: Calf Tenderness (right calf), Other (lesions on LE b/l) Assessment/Plan Assessment/Plan Assessment/Plan Pleural effusion - right lung Liver with multiple masses Lung masses Thrombocytopenia Thoracentesis completed yesterday; will wait on pathology, hopefully will help us plan next steps. Monitor WBC and platelet count with AM lab. Repeat CXR today. Supervisory-Addendum Brief Verification & Attestation Participated in pt care: history, MDM, physical Personally performed: exam, history, MDM, supervision of care Care discussed with: Medical Student Procedures: n/a Verification and Attestation of Medical Student E/M Service A medical student performed and documented this service. I then reviewed and verified all information documented by the medical student and made modif ications to such information, when appropriate. I personally performed a physical exam, medical decision making and then discussed any differences between the notes and made revisions as necessary to create one note. Gallo De La Paz , 06/28/22 , 13:47 CHELE WINCHESTER Jun 28, 2022 07:41 GALLO DE LA PAZ DO Jun 28, 2022 13:47
--- NOTE | 2022-06-28 08:28 | Tele-ICU Progress Note ---
Subjective Date Seen by a Provider: Jun 28, 2022 Time Seen by a Provider: 08:28 Subjective/Events-last exam (Tele-ICU Physician , Progress Note ) Available chart/ vitals / labs / Images reviewed Video assessment done using teleICU camera, rest of exam as per RN Discussed with RN Events overnight : Respiratory - VT 25L65% I/O =pos 600 Drips:75 ns Pressors- no Consultants: cards , sx Hospital course: (06/26) 71/F- WEAKNESS, HYPOXIA, ABDO PAIN--Hep-C, Liver CA--extensive mets, spine, lung, chest, abdo, R Pl. Effusion needs thoracnt. - Plts low. Anxiety and yelling, sitter provided. 15 lb wt loss in one month. // afib,// for 06-27 needs one unit plt./ in prep for thoracentesis. 06/27 - VT 25L 80%, transfuses PLT , s/p RIGHT thoracentesis 1700ml 06/28-VT 25L65% A/P Acute hypoxic respiratory failure - VT 25L 80% with VO - s/p RIGHT thoracentesis 1700ml- seems decreased work of breathing , still on VT and developing infiltrate osn cxr - start ABX empirically Pleural effusion -06/27 - s/p RIGHT thoracentesis 1700ml- seems decreased work of breathing , still on VT - fluid result pending Widely metastatic disease based on images (Liver masses Spleen masses Bony metastatic disease (T10 and L1) Atrial fibrillation with RVR -New onset - cardizem OFF , rate controlled - ECHO 06/27 - EF 60% , RBSP 45 mmHg - cards consulted Anemia of chronic disease -Hgb decreasing , to trend Hypercalcemia - corrected Ca 10.4 - no need to treat now , but will monitor , avoid volume depletions Encephalopathy - slightly better today - answer squestions - as per RN - after discussion with by PCP - patient is DNR/DNI - follow closely VERY MINIMAL INTAKE PO , poor appetite Lines : periph (Central Line Necessity Reviewed) Bocanegra: + OG: Nutrition: Po , VERY MINIMAL INTAKE , poor appetite Analgesia: Anxiety/ delirium VTE Prophylaxis: contraindic Stress Ulcer Prophylaxis: Plans in collaboration with bedside consultants and IM MDs. Discussed with RN to reach out if any questions or concerns A total of 20 minutes of critical care time was devoted to this patient today, required to treat and/or prevent further deterioration of critical care condition ( as above ) . Sepsis Event Evaluation Height, Weight, BMI Height: 5'4.50" Weight: 125lbs. oz. 56.290957pp; 18.45 BMI Method:Stated Focused Exam Lactate Level 06/25/22 18:13: Lactic Acid Level 3.27*H 06/25/22 20:50: Lactic Acid Level 3.07*H 06/26/22 05:43: Lactic Acid Level 3.10*H Exam Exam Patient acknowledged, consented, and participated in this virtual visit which was conducted using real time audio/video Vital Signs Date Time Temp Pulse Resp B/P (MAP) Pulse Ox O2 Delivery O2 Flow Rate FiO2 06/28/22 08:00 117 31 100/62 (75) 92 Vapotherm 65.00 25.00 06/28/22 07:46 36.8 06/28/22 07:40 Vapotherm 65.00 25.00 06/28/22 07:40 Vapotherm 25.00 65 06/28/22 07:39 92 Vapotherm 25.00 60 06/28/22 07:05 105 06/28/22 07:00 106 20 109/65 (80) 94 Vapotherm 60.00 25.00 06/28/22 06:00 103 20 102/66 (78) 92 Vapotherm 60.00 25.00 06/28/22 05:00 98 18 111/61 (78) 94 Vapotherm 60.00 25.00 06/28/22 04:00 96 16 100/62 (75) 94 Vapotherm 60.00 25.00 06/28/22 04:00 Vapotherm 25.00 60 06/28/22 03:32 36.6 06/28/22 03:00 96 24 96/62 (73) 91 Vapotherm 60.00 25.00 06/28/22 02:15 95 Vapotherm 25.00 60 06/28/22 02:00 115 23 89/59 (69) 91 Vapotherm 60.00 25.00 06/28/22 01:00 105 15 92/59 (70) 97 Vapotherm 60.00 25.00 06/28/22 01:00 110 06/28/22 00:00 96 Vapotherm 25.00 60 06/28/22 00:00 123 19 95/64 (74) 96 Vapotherm 60.00 25.00 06/27/22 23:00 112 16 99/62 (74) 99 Vapotherm 60.00 25.00 06/27/22 22:42 98 Vapotherm 25.00 60 06/27/22 22:00 107 22 99/54 (69) 99 Vapotherm 60.00 25.00 06/27/22 21:00 113 25 90/54 (66) 95 Vapotherm 60.00 25.00 06/27/22 20:00 130 26 75/49 (58) 95 Vapotherm 60.00 25.00 06/27/22 20:00 96 Vapotherm 25.00 60 06/27/22 19:50 36.8 170 32 82/49 (60) 95 Vapotherm 60.00 25.00 06/27/22 19:27 37.1 06/27/22 19:14 96 Vapotherm 25.00 60 06/27/22 19:00 116 26 100/49 (66) 96 Vapotherm 60.00 25.00 06/27/22 19:00 120 06/27/22 18:00 99 20 88/52 (64) 97 Vapotherm 60.00 25.00 06/27/22 17:00 110 37 92/62 (72) 91 Vapotherm 80.00 25.00 06/27/22 16:00 37.3 06/27/22 16:00 97 Vapotherm 25.00 60 06/27/22 16:00 108 24 106/60 (75) 100 Vapotherm 80.00 25.00 06/27/22 15:00 112 20 97/59 (72) 100 Vapotherm 80.00 25.00 06/27/22 14:11 92 Vapotherm 25.00 75 06/27/22 14:00 102 22 100/59 (73) 100 Vapotherm 80.00 25.00 06/27/22 13:00 37.0 105 19 96/57 (70) 100 Vapotherm 80.00 25.00 06/27/22 12:35 118 06/27/22 12:00 97 Vapotherm 25.00 60 06/27/22 12:00 37.4 102 24 73/56 (62) 94 Vapotherm 80.00 25.00 06/27/22 11:00 112 26 109/61 (77) 89 Vapotherm 80.00 25.00 06/27/22 10:00 92 Vapotherm 25.00 80 06/27/22 10:00 114 25 90/63 (72) 90 Vapotherm 80.00 25.00 06/27/22 09:54 36.9 115 26 99/64 92 Vapotherm 25.00 80 06/27/22 09:00 115 25 99/64 (76) 92 Vapotherm 80.00 25.00 I & O 06/28/22 07:00 Intake Total 1305 ml Output Total 600 ml Balance 705 ml Height & Weight Height: 5'4.50" Weight: 125lbs. oz. 56.368887ax; 18.45 BMI Method:Stated General Appearance: Chronically ill, Moderate Distress, Thin HEENT: PERRL/EOMI, Moist Mucous Membranes, Other (dry mucous membranes) Neck: Non Tender, Supple Respiratory: Accessory Muscle Use, Decreased Breath Sounds (diminished at right lung base), Respiratory Distress; No Wheezing Cardiovascular: No Murmur, Tachycardia Capillary Refill: Less Than 3 Seconds Peripheral Pulses: 2+ Dorsalis Pedis (R), 2+ Left Dors-Pedis (L), 2+ Radial Pulses (R), 2+ Radial Pulses (L) Gastrointestinal: non tender, soft; No distended; tenderness, hepatomegaly Extremity: Calf Tenderness (right calf), Other (lesions on LE b/l) Neurologic/Psychiatric: Depressed Affect, Disoriented Skin: Warm/Dry, Ecchymosis (b/l LE), Pallor Lymphatic: No Adenopathy Results Lab Laboratory Tests 06/27/22 04:39 06/27/22 21:00 06/28/22 05:00 Assessment/Plan Assessment/Plan 1 IRAIS FLORES MD Jun 28, 2022 08:28
--- NOTE | 2022-06-28 08:43 | Progress Note - Hospitalist ---
Subjective HPI/CC On Admission Date Seen by Provider: Jun 28, 2022 Patient is a 71-year-old female with past medical history of hepatitis C status status post curative treatment who presented to the emergency department due to weakness and shortness of breath. She reports this has been going on for over 5 months. She was seen in the emergency room last month for the pain. She has also been seen by her primary care physician, Dr. Franklin. She was treated with physical therapy and Flexeril. Yesterday her shortness of breath and pain worsened prompting her to seek evaluation. She was requiring a 1 wheelchair to ambulate when she is normally independent. Her reports that she has had significant weight loss of 15 pounds as well. He also reports decreased appetite and subsequent decreased urine output. She denies any incontinence, numbness, tingling. Her only complaint today is that she has anxiety. In the emergency room she was found to have a large pleural effusion and was hypoxic. Due to elevated liver enzymes and history of hepatitis C she underwent a CT chest abdomen pelvis which revealed innumerable liver and splenic masses with presumed widely metastatic disease. I did inform the patient and her of this this morning and the need for thoracentesis and sent for pathology. Subjective/Events-last exam Pt more alert today. Reports feeling better and breathing easier since thorace ntesis yesterday. BP was low last night but responded to albumin. Focused Exam Lactate Level 06/25/22 18:13: Lactic Acid Level 3.27*H 06/25/22 20:50: Lactic Acid Level 3.07*H 06/26/22 05:43: Lactic Acid Level 3.10*H Objective Exam Vital Signs Vital Signs Date Time Temp Pulse Resp B/P (MAP) Pulse Ox O2 Delivery O2 Flow Rate FiO2 06/28/22 08:29 Vapotherm 25.00 65 06/28/22 08:00 117 31 100/62 (75) 92 06/28/22 07:46 36.8 Capillary Refill : Less Than 3 Seconds General Appearance: No Apparent Distress, Chronically ill, Thin Respiratory: No Crackles; Decreased Breath Sounds; No Wheezing; Other (on Vapotherm) Cardiovascular: Irregularly Irregular, Tachycardia Gastrointestinal: Normal Bowel Sounds, Non Tender, Soft Neurologic/Psychiatric: Alert, Oriented x3 (to major details-person and place) Results/Procedures Lab Laboratory Tests 06/27/22 21:00 06/28/22 05:00 Patient resulted labs reviewed. Imaging: Reviewed Imaging Report Assessment/Plan Assessment and Plan Assess & Plan/Chief Complaint Acute hypoxic respiratory failure Pleural effusion MAT protocol Now on Vapotherm, wean as able Thoracentesis 06/27 with 1.8L removed and sent for cytology TeleICU consulted, appreciate recs Widely metastatic disease Pleural effusion (likely malignant) Liver masses Spleen masses Bony metastatic disease (T10 and L1) Cachexia Imaging and symptoms consistent with advanced cancer Discussed with patient and imaging findings s/p thoracentesis Discussed with Dr Vasquez 06/26 and as in neurovascularly intact will need outpatient follow up Monitor closely given L1 fracture Will need oncology consult- prefers to see someone local (has previously follow with [facility] for hepatology) Lactic acidosis elevated- not sepsis- unable to clear due to liver disease Atrial fibrillation with RVR Cardiology consulted, appreciate recs Echo with preserved EF Hold Lovenox due to thrombocytopenia telemetry Continued cardizem Anemia of chronic disease Hgb down to 7.3 this AM Transfuse if under 7 DVT ppx: SCDs only due to thrombocytopenia Return to room around 1030 to discuss with patient's prognosis as she has had short runs of V. tach on telemetry. We discussed the extent of her cancer and her body's response to this with multiorgan failure. Discussed the risk and benefits of CPR in the event of cardiac arrest and that it would very likely be futile. He expressed understanding and stated he did not want her to suffer should her heart stop. He elected to make her DNR. Order placed. Professor Of Rhetoric contacted and in route to offer support to patient and her . 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
[2022-06-28] MEDS ORDERED: ACET-2267 PO (08:55)
[2022-06-28] MEDS ORDERED: DIGOXIN 0.25 MG/ML (LANOXIN) 2 ML AMP IV ONE ×2 (10:00→13:00)
--- NOTE | 2022-06-28 10:03 | Progress Note - Cardiology ---
Cardiology SOAP Progress Note Subjective: Sitting up in bed Dyspneic Denies pain Gen weakness Objective: I&O/Vital Signs 06/28/22 06/28/22 06/28/22 06/28/22 05:00 06:00 07:00 07:05 Pulse 98 103 106 105 Resp 18 20 20 B/P (MAP) 111/61 (78) 102/66 (78) 109/65 (80) Pulse Ox 94 92 94 O2 Delivery Vapotherm Vapotherm Vapotherm O2 Flow Rate 60.00 60.00 60.00 25.00 25.00 25.00 06/28/22 06/28/22 06/28/22 06/28/22 07:39 07:40 07:40 07:46 Temp 36.8 B/P (MAP) Pulse Ox 92 O2 Delivery Vapotherm Vapotherm Vapotherm O2 Flow Rate 25.00 25.00 65.00 25.00 FiO2 60 65 06/28/22 06/28/22 06/28/22 06/28/22 08:00 08:29 09:00 10:00 Pulse 117 124 106 Resp 31 26 22 B/P (MAP) 100/62 (75) 100/70 (80) 102/61 (75) Pulse Ox 92 93 93 O2 Delivery Vapotherm Vapotherm Vapotherm Vapotherm O2 Flow Rate 65.00 25.00 65.00 65.00 25.00 25.00 25.00 FiO2 65 06/28/22 06/28/22 06/28/22 06/28/22 11:00 11:56 12:00 12:00 Temp 37.3 Pulse 105 101 Resp 19 30 B/P (MAP) 110/56 (74) 119/67 (84) Pulse Ox 93 92 O2 Delivery Vapotherm Vapotherm Vapotherm O2 Flow Rate 65.00 25.00 65.00 25.00 25.00 FiO2 65 06/28/22 06/28/22 06/28/22 06/28/22 12:58 13:00 14:00 14:55 Pulse 112 105 95 Resp 27 27 B/P (MAP) 122/67 (85) 108/57 (74) Pulse Ox 91 90 90 O2 Delivery Vapotherm Vapotherm Vapotherm O2 Flow Rate 65.00 65.00 25.00 25.00 25.00 FiO2 60 06/28/22 06/28/22 15:00 16:00 Pulse 90 98 Resp 24 16 B/P (MAP) 118/63 (81) 92/45 (61) Pulse Ox 90 90 O2 Delivery Vapotherm Vapotherm O2 Flow Rate 65.00 65.00 25.00 25.00 06/27/22 23:59 Intake Total 250 ml Output Total 450 ml Balance -200 ml Weight (Pounds): 125 Weight (Calculated Kilograms): 56.064171 Constitutional: AAO x 3, well-developed, other (Thin appearing) Respiratory: No accessory muscle use; other (Air entry appears diminished at the bases (R > L)) Cardiovascular: irregularly irregular, S1 and S2, systolic murmur (soft MACKENZIE at card base) Gastrointestional: No tender; soft; No guarding, No rebound; audible bowel damian nds Extremities: No clubbing, No cyanosis, No significant edema Neurologic/Psychiatric: oriented x 3, other (moves all limbs equally) Skin: warm/dry; No cyanosis, No cool, No rash on exposed areas, No ulcerations on exposed areas Results/Procedures: Labs Laboratory Tests 06/27/22 21:00: White Blood Count 4.8, Red Blood Count 2.59L, Hemoglobin 7.8L, Hematocrit 25L, Mean Corpuscular Volume 95, Mean Corpuscular Hemoglobin 30, Mean Corpuscular Hemoglobin Concent 32, Red Cell Distribution Width 18.6H, Platelet Count 47L, Mean Platelet Volume 11.5, Immature Granulocyte % (Auto) 2, Neutrophils (%) (Auto) 80H, Lymphocytes (%) (Auto) 9L, Monocytes (%) (Auto) 9, Eosinophils (%) (Auto) 0, Basophils (%) (Auto) 0, Neutrophils # (Auto) 3.8, Lymphocytes # (Auto) 0.4L, Monocytes # (Auto) 0.4, Eosinophils # (Auto) 0.0, Basophils # (Auto) 0.0, Immature Granulocyte # (Auto) 0.1 06/28/22 05:00: White Blood Count 4.7, Red Blood Count 2.47L, Hemoglobin 7.3L, Hematocrit 23L, Mean Corpuscular Volume 95, Mean Corpuscular Hemoglobin 30, Mean Corpuscular Hemoglobin Concent 31L, Red Cell Distribution Width 18.8H, Platelet Count 40L, Mean Platelet Volume 12.6H, Immature Granulocyte % (Auto) 3, Neutrophils (%) (Auto) 80H, Lymphocytes (%) (Auto) 8L, Monocytes (%) (Auto) 9, Eosinophils (%) (Auto) 0, Basophils (%) (Auto) 0, Neutrophils # (Auto) 3.8, Lymphocytes # (Auto) 0.4L, Monocytes # (Auto) 0.4, Eosinophils # (Auto) 0.0, Basophils # (Auto) 0.0, Immature Granulocyte # (Auto) 0.2H, Percent Immature Platelet Fraction 6.7, Sodium Level 144, Potassium Level 3.4L, Chloride Level 111H, Carbon Dioxide Level 18L, Anion Gap 15H, Blood Urea Nitrogen 22H, Creatinine 0.73, Estimat Glomerular Filtration Rate 89, BUN/Creatinine Ratio 30, Glucose Level 116H, Calcium Level 9.2, Corrected Calcium 10.4H, Phosphorus Level 2.0L, Magnesium Level 1.7, Total Bilirubin 1.9H, Aspartate Amino Transf (AST/SGOT) 134H, Alanine Aminotransferase (ALT/SGPT) 43, Alkaline Phosphatase 426H, Total Protein 5.0L, Albumin 2.5L 06/28/22 12:06: Lab Scanned Report Transfusion Reaction Form Microbiology 06/26/22 MRSA Screen - Final, Complete MRSA not isolated 06/25/22 Blood Culture - Preliminary, Resulted No growth A/P: Assessment: New onset A Fib with RVR (first documented on 06/26/22) - echo on 06/26/22: The cavity size is normal. LVEF 65-70%. There were no regional wall motion abnormalities identified. Aortic valve: Thickening, consistent with sclerosis. Pulmonary arteries: Systolic pressure is in the range of 45 mm Hg to 50 mm Hg. Probable metastatic disease of unknown primary (lung suspected) - Large R pleural eff treated with thoracentesis on (Dr Delgado and Dr Burton managing) Probable sepsis Marked thrombocytopenia of undetermined etiology Plan: * complex management * prognosis appears poor * Intole to dilt for vent rate control d/t hypotension - start IV Dig for rate control * not suitable for anticoag (severe thrombocytopenia) * monitor labs * treat sepsis per medical/eICU services SAY WRIGHT Jun 28, 2022 10:03
[2022-06-28] MEDS: CEFEPIME INJECTION 1,000 MG in NS (IVPB) 50 ML IV SCH ×2 (10:17→18:10)
--- NOTE | 2022-06-28 15:20 | Progress Note - Cardiology ---
Cardiology SOAP Progress Note Subjective: Does not report symptoms. Appear weak and exhausted. by bedside Objective: I&O/Vital Signs 06/28/22 06/28/22 06/28/22 06/28/22 03:32 04:00 04:00 05:00 Temp 36.6 Pulse 96 98 Resp 16 18 B/P (MAP) 100/62 (75) 111/61 (78) Pulse Ox 94 94 O2 Delivery Vapotherm Vapotherm Vapotherm O2 Flow Rate 25.00 60.00 60.00 25.00 25.00 FiO2 60 06/28/22 06/28/22 06/28/22 06/28/22 06:00 07:00 07:05 07:39 Pulse 103 106 105 Resp 20 20 B/P (MAP) 102/66 (78) 109/65 (80) Pulse Ox 92 94 92 O2 Delivery Vapotherm Vapotherm Vapotherm O2 Flow Rate 60.00 60.00 25.00 25.00 25.00 FiO2 60 06/28/22 06/28/22 06/28/22 06/28/22 07:40 07:40 07:46 08:00 Temp 36.8 Pulse 117 Resp 31 B/P (MAP) 100/62 (75) Pulse Ox 92 O2 Delivery Vapotherm Vapotherm Vapotherm O2 Flow Rate 25.00 65.00 65.00 25.00 25.00 FiO2 65 06/28/22 06/28/22 06/28/22 06/28/22 08:29 09:00 10:00 11:00 Pulse 124 106 105 Resp 26 22 19 B/P (MAP) 100/70 (80) 102/61 (75) 110/56 (74) Pulse Ox 93 93 93 O2 Delivery Vapotherm Vapotherm Vapotherm Vapotherm O2 Flow Rate 25.00 65.00 65.00 65.00 25.00 25.00 25.00 FiO2 65 06/28/22 06/28/22 06/28/22 06/28/22 11:56 12:00 12:00 12:58 Temp 37.3 Pulse 101 112 Resp 30 B/P (MAP) 119/67 (84) Pulse Ox 92 O2 Delivery Vapotherm Vapotherm O2 Flow Rate 25.00 65.00 25.00 FiO2 65 06/28/22 06/28/22 06/28/22 13:00 14:00 15:00 Pulse 105 95 90 Resp 27 27 24 B/P (MAP) 122/67 (85) 108/57 (74) 118/63 (81) Pulse Ox 91 90 90 O2 Delivery Vapotherm Vapotherm Vapotherm O2 Flow Rate 65.00 65.00 65.00 25.00 25.00 25.00 06/28/22 00:00 Intake Total 250 ml Output Total 450 ml Balance -200 ml Weight (Pounds): 125 Weight (Calculated Kilograms): 56.425088 Constitutional: well-developed, other (Thin appearing, non-communicative) Respiratory: No accessory muscle use; other (Air entry appears diminished at the bases (R > L)) Cardiovascular: irregularly irregular, S1 and S2, systolic murmur (soft MACKENZIE at card base) Gastrointestional: No tender; soft; No guarding, No rebound; audible bowel damian nds Extremities: No clubbing, No cyanosis, No significant edema Neurologic/Psychiatric: oriented x 3, other (moves all limbs equally) Skin: warm/dry; No cyanosis, No cool, No rash on exposed areas, No ulcerations on exposed areas Results/Procedures: Labs Laboratory Tests 06/27/22 21:00: White Blood Count 4.8, Red Blood Count 2.59L, Hemoglobin 7.8L, Hematocrit 25L, Mean Corpuscular Volume 95, Mean Corpuscular Hemoglobin 30, Mean Corpuscular Hemoglobin Concent 32, Red Cell Distribution Width 18.6H, Platelet Count 47L, Mean Platelet Volume 11.5, Immature Granulocyte % (Auto) 2, Neutrophils (%) (Auto) 80H, Lymphocytes (%) (Auto) 9L, Monocytes (%) (Auto) 9, Eosinophils (%) (Auto) 0, Basophils (%) (Auto) 0, Neutrophils # (Auto) 3.8, Lymphocytes # (Auto) 0.4L, Monocytes # (Auto) 0.4, Eosinophils # (Auto) 0.0, Basophils # (Auto) 0.0, Immature Granulocyte # (Auto) 0.1 06/28/22 05:00: White Blood Count 4.7, Red Blood Count 2.47L, Hemoglobin 7.3L, Hematocrit 23L, Mean Corpuscular Volume 95, Mean Corpuscular Hemoglobin 30, Mean Corpuscular Hemoglobin Concent 31L, Red Cell Distribution Width 18.8H, Platelet Count 40L, Mean Platelet Volume 12.6H, Immature Granulocyte % (Auto) 3, Neutrophils (%) (Auto) 80H, Lymphocytes (%) (Auto) 8L, Monocytes (%) (Auto) 9, Eosinophils (%) (Auto) 0, Basophils (%) (Auto) 0, Neutrophils # (Auto) 3.8, Lymphocytes # (Auto) 0.4L, Monocytes # (Auto) 0.4, Eosinophils # (Auto) 0.0, Basophils # (Auto) 0.0, Immature Granulocyte # (Auto) 0.2H, Percent Immature Platelet Fraction 6.7, Sodium Level 144, Potassium Level 3.4L, Chloride Level 111H, Carbon Dioxide Level 18L, Anion Gap 15H, Blood Urea Nitrogen 22H, Creatinine 0.73, Estimat Glomerular Filtration Rate 89, BUN/Creatinine Ratio 30, Glucose Level 116H, Calcium Level 9.2, Corrected Calcium 10.4H, Phosphorus Level 2.0L, Magnesium Level 1.7, Total Bilirubin 1.9H, Aspartate Amino Transf (AST/SGOT) 134H, Alanine Aminotransferase (ALT/SGPT) 43, Alkaline Phosphatase 426H, Total Protein 5.0L, Albumin 2.5L 06/28/22 12:06: Lab Scanned Report Transfusion Reaction Form Microbiology 06/26/22 MRSA Screen - Final, Complete MRSA not isolated 06/25/22 Blood Culture - Preliminary, Resulted No growth Laboratory Tests 06/27/22 04:39 06/27/22 21:00 06/28/22 05:00 A/P: Assessment: New onset A Fib with RVR (first documented on 06/26/22) - echo on 06/26/22: The cavity size is normal. LVEF 65-70%. There were no regional wall motion abnormalities identified. Aortic valve: Thickening, consistent with sclerosis. Pulmonary arteries: Systolic pressure is in the range of 45 mm Hg to 50 mm Hg. Probable metastatic disease of unknown primary (lung suspected) - Large R pleural eff treated with thoracentesis on (Dr Delgado and Dr Burton managing) Probable sepsis Marked thrombocytopenia of undetermined etiology Plan: * complex management * prognosis appears poor * Intolerant to dilt for vent rate control d/t hypotension - start iv dig for rate control * not suitable for anticoag (severe thrombocytopenia) * monitor labs * treat sepsis per medical/eICU services LINDA KING MD FACP FAC CCDS Jun 28, 2022 15:20
[2022-06-28] MEDS: fentaNYL INJ 100 MCG/2 ML AMP IV PRN (15:33)
[2022-06-28] MEDS: dilTIAZem DRIP PRE-MIX 125 ML IV SCH (18:12)
[2022-06-29] VITALS (10 sets, daily range): BP systolic 91–177; BP diastolic 62–110
[2022-06-29] MEDS: CEFEPIME INJECTION 1,000 MG in NS (IVPB) 50 ML IV SCH (01:39)
[2022-06-29] MEDS: fentaNYL INJ 100 MCG/2 ML AMP IV PRN ×2 (02:05→07:19)
[2022-06-29] MEDS: RT-ALBUTEROL/IPRATROPIUM 3 ML (DUONEB) VIAL INH SCH ×3 (03:21→10:26)
[2022-06-29 04:48] LABS: BASOPHILS % (AUTO) 0 % (0-10); EOSINOPHILS % (AUTO) 0 % (0-10)
[2022-06-29 04:50] LABS: HEMATOCRIT 25 % (35-52); LYMPHOCYTES # (AUTO) 0.5 10^3/uL (1.0-4.0); LYMPHOCYTES % (AUTO) 11 % (12-44); MEAN CORPUSCULAR HEMOGLOBIN 31 pg (25-34); MEAN CORPUSCULAR HGB CONC 32 g/dL (32-36); MEAN CORPUSCULAR VOLUME 97 fL (80-99); MONOCYTES # (AUTO) 0.4 10^3/uL (0.0-1.0); MONOCYTES % (AUTO) 10 % (0-12); NEUTROPHILS # (AUTO) 3.3 10^3/uL (1.8-7.8); NEUTROPHILS % (AUTO) 77 % (42-75); PLATELET COUNT 51 10^3/uL (130-400); WHITE BLOOD COUNT 4.3 10^3/uL (4.3-11.0)
[2022-06-29 05:00] LABS: ALBUMIN 2.4 GM/DL (3.2-4.5); POTASSIUM 4.1 MMOL/L (3.6-5.0)
[2022-06-29 05:01] LABS: CALCIUM 9.7 MG/DL (8.5-10.1)
[2022-06-29 05:02] LABS: TOTAL PROTEIN 5.2 GM/DL (6.4-8.2)
[2022-06-29 05:04] LABS: BILIRUBIN,TOTAL 1.7 MG/DL (0.1-1.0)
[2022-06-29 05:06] LABS: CREATININE SERUM 0.96 MG/DL (0.60-1.30); PHOSPHORUS 2.5 MG/DL (2.3-4.7)
[2022-06-29 05:09] LABS: MAGNESIUM 2.3 MG/DL (1.6-2.4)
[2022-06-29] MEDS: POTASSIUM CL 10MEQ/50ML IVPB 50 ML IV SCH (05:45)
[2022-06-29] MEDS: MAGNESIUM 1 GM/100 ML IVPB 100 ML IV SCH (05:46)
[2022-06-29] MEDS: KCL 20 MEQ TAB (K-DUR) PO SCH (05:46)
--- NOTE | 2022-06-29 06:06 | Progress Note - Surgery ---
CHELE WINCHESTER 06/29/22 0606: Subjective Date Seen by a Provider: Jun 29, 2022 Time Seen by a Provider: 05:50 Subjective/Events-last exam Patient is very confused this morning. She was non-verbal for most of the time I was with her, answered my questions by shaking her head yes or no. Per RN she has had bouts of becoming very agitated. She has no complaints of shortness of breath, skinner is still in. Review of Systems General: No Chills, No Night Sweats, No Fatigue HEENT: No Head Aches, No Visual Changes, No Dysphasia, No Sore Throat Pulmonary: No Dyspnea, No Cough Cardiovascular: No: Chest Pain, Lt Headedness Gastrointestinal: No: Nausea, Vomiting, Abdominal Pain Genitourinary: No Hematuria; Other (skinner still in place, said no pain associated with it) Musculoskeletal: No: neck pain, shoulder pain, back pain Neurological: Confusion; No: Weakness Objective Exam Vital Signs Date Time Temp Pulse Resp B/P (MAP) Pulse Ox O2 Delivery O2 Flow Rate FiO2 06/29/22 04:00 Vapotherm 25.00 75 06/29/22 03:43 36.9 92 22 150/109 (123) 92 Vapotherm 75.00 25.00 06/29/22 03:21 93 Vapotherm 25.00 75 06/29/22 02:00 98 28 115/65 (78) 92 Vapotherm 75.00 25.00 06/29/22 01:15 88 24 165/84 (108) 93 Vapotherm 75.00 25.00 06/29/22 01:00 106 06/29/22 01:00 106 27 177/110 (132) 92 Vapotherm 75.00 25.00 06/29/22 00:00 89 22 137/72 (99) 93 Vapotherm 75.00 25.00 06/29/22 00:00 Vapotherm 25.00 75 06/28/22 23:59 36.6 85 21 137/72 (93) 93 Vapotherm 75.00 25.00 06/28/22 23:00 88 21 142/74 (102) 92 Vapotherm 75.00 25.00 06/28/22 22:25 90 Vapotherm 25.00 75 06/28/22 22:00 96 21 117/66 (92) 90 Vapotherm 75.00 25.00 06/28/22 21:00 92 20 127/70 (79) 90 Vapotherm 75.00 25.00 06/28/22 20:04 36.3 86 92 75 06/28/22 20:00 Vapotherm 25.00 75 06/28/22 20:00 36.8 06/28/22 20:00 103 30 112/51 (57) 91 Vapotherm 75.00 25.00 06/28/22 19:00 98 25 108/63 (77) 92 Vapotherm 75.00 25.00 06/28/22 19:00 98 06/28/22 18:44 Vapotherm 75.00 25.00 06/28/22 18:42 87 Vapotherm 25.00 60 06/28/22 18:00 86 21 123/63 (83) 93 Vapotherm 65.00 25.00 06/28/22 17:00 82 16 94/53 (67) 92 Vapotherm 65.00 25.00 06/28/22 16:00 Vapotherm 25.00 65 06/28/22 16:00 36.3 06/28/22 16:00 98 16 92/45 (61) 90 Vapotherm 65.00 25.00 06/28/22 15:00 90 24 118/63 (81) 90 Vapotherm 65.00 25.00 06/28/22 14:55 90 Vapotherm 25.00 60 06/28/22 14:00 95 27 108/57 (74) 90 Vapotherm 65.00 25.00 06/28/22 13:00 105 27 122/67 (85) 91 Vapotherm 65.00 25.00 06/28/22 12:58 112 06/28/22 12:00 37.3 06/28/22 12:00 101 30 119/67 (84) 92 Vapotherm 65.00 25.00 06/28/22 11:56 Vapotherm 25.00 65 06/28/22 11:00 105 19 110/56 (74) 93 Vapotherm 65.00 25.00 06/28/22 10:00 106 22 102/61 (75) 93 Vapotherm 65.00 25.00 06/28/22 09:00 124 26 100/70 (80) 93 Vapotherm 65.00 25.00 06/28/22 08:29 Vapotherm 25.00 65 06/28/22 08:00 117 31 100/62 (75) 92 Vapotherm 65.00 25.00 06/28/22 07:46 36.8 06/28/22 07:40 Vapotherm 65.00 25.00 06/28/22 07:40 Vapotherm 25.00 65 06/28/22 07:39 92 Vapotherm 25.00 60 06/28/22 07:05 105 06/28/22 07:00 106 20 109/65 (80) 94 Vapotherm 60.00 25.00 06/28/22 06:00 103 20 102/66 (78) 92 Vapotherm 60.00 25.00 I & O 06/29/22 07:00 Intake Total 1425 ml Output Total 350 ml Balance 1075 ml Capillary Refill : Less Than 3 Seconds General Appearance: Chronically ill, Mild Distress, Thin HEENT: PERRL/EOMI, Other (dry mucous membranes) Neck: Non Tender, Supple Respiratory: Accessory Muscle Use, Decreased Breath Sounds (diminished at right lung base), Respiratory Distress (mild); No Wheezing Cardiovascular: No Murmur, Irregularly Irregular, Tachycardia Peripheral Pulses: 1+ Dorsalis Pedis (R); 2+ Left Dors-Pedis (L), 2+ Radial Pulses (R), 2+ Radial Pulses (L) Gastrointestinal: non tender, soft; No distended; hepatomegaly Extremity: Calf Tenderness (right calf), Slow Capillary Refill (on right foot), Other (lesions on LE b/l) Neurologic/Psychiatric: Depressed Affect, Disoriented Skin: Warm/Dry, Ecchymosis (b/l LE), Pallor, Other (right foot is cold and dry) Lymphatic: No Adenopathy Results Lab Laboratory Tests 06/28/22 12:06: Lab Scanned Report Transfusion Reaction Form 06/29/22 04:30: White Blood Count 4.3, Red Blood Count 2.61L, Hemoglobin 8.0L, Hematocrit 25L, Mean Corpuscular Volume 97, Mean Corpuscular Hemoglobin 31, Mean Corpuscular Hemoglobin Concent 32, Red Cell Distribution Width 19.7H, Platelet Count 51L, Mean Platelet Volume 13.0H, Immature Granulocyte % (Auto) 3, Neutrophils (%) (Auto) 77H, Lymphocytes (%) (Auto) 11L, Monocytes (%) (Auto) 10, Eosinophils (%) (Auto) 0, Basophils (%) (Auto) 0, Neutrophils # (Auto) 3.3, Lymphocytes # (Auto) 0.5L, Monocytes # (Auto) 0.4, Eosinophils # (Auto) 0.0, Basophils # (Auto) 0.0, Immature Granulocyte # (Auto) 0.1, Percent Immature Platelet Fraction 7.9H, Sodium Level 145, Potassium Level 4.1, Chloride Level 113H, Carbon Dioxide Level 18L, Anion Gap 14, Blood Urea Nitrogen 26H, Creatinine 0.96, Estimat Glomerular Filtration Rate 64, BUN/Creatinine Ratio 27, Glucose Level 108H, Calcium Level 9.7, Corrected Calcium 11.0H, Phosphorus Level 2.5, Magnesium Level 2.3, Total Bilirubin 1.7H, Aspartate Amino Transf (AST/SGOT) 114H, Alanine Aminotransferase (ALT/SGPT) 45, Alkaline Phosphatase 372H, Total Protein 5.2L, Albumin 2.4L, Digoxin Level 2.57*H Microbiology 06/26/22 MRSA Screen - Final, Complete MRSA not isolated 06/25/22 Blood Culture - Preliminary, Resulted No growth Assessment/Plan Assessment/Plan Assessment/Plan Pleural effusion - right lung Liver with multiple masses Lung masses Thrombocytopenia Thoracentesis completed, will wait on pathology, hopefully will help us plan next steps. Monitor WBC and platelet count with AM lab. Repeat CXR today. GALLO DE LA PAZ DO 06/29/22 1140: Subjective Time Seen by a Provider: 09:39 Subjective/Events-last exam Pt seen and examined, family and pt have decided to go comfort care. Review of Systems Pulmonary: Dyspnea; No Cough Cardiovascular: No: Chest Pain Gastrointestinal: No: Nausea, Vomiting, Abdominal Pain Genitourinary: Other (skinner still in place, said no pain associated with it) Neurological: Weakness, Confusion Objective Exam General Appearance: Chronically ill, Mild Distress, Thin HEENT: PERRL/EOMI, Other (dry mucous membranes) Respiratory: Accessory Muscle Use, Decreased Breath Sounds (diminished at right lung base), Respiratory Distress (mild); No Wheezing Cardiovascular: No Murmur, Irregularly Irregular, Tachycardia Gastrointestinal: non tender, soft Assessment/Plan Assessment/Plan Assessment/Plan Pleural effusion - right lung Liver with multiple masses Lung masses Thrombocytopenia Thoracentesis completed, will wait on pathology. Pt to go comfort care. Supervisory-Addendum Brief Verification & Attestation Participated in pt care: history, MDM, physical Personally performed: exam, history, MDM, supervision of care Care discussed with: Medical Student Procedures: n/a Verification and Attestation of Medical Student E/M Service A medical student performed and documented this service. I then reviewed and verified all information documented by the medical student and made modifications to such information, when appropriate. I personally performed a physical exam, medical decision making and then discussed any differences between the notes and made revisions as necessary to create one note. Gallo De La Paz , 06/29/22 , 11:39 CHELE WINCHESTER Jun 29, 2022 06:06 GALLO DE LA PAZ DO Jun 29, 2022 11:40
[2022-06-29] MEDS: NS IV 500 ML 500 ML IV SCH (08:45)
[2022-06-29] MEDS ORDERED: DIGOXIN 0.25 MG/ML (LANOXIN) 2 ML AMP IV SCH (09:00)
[2022-06-29] MEDS ORDERED: fentaNYL INJ 100 MCG/2 ML AMP IV PRN (09:00)
[2022-06-29] MEDS ORDERED: morphine INJ 4 MG/ML 1 ML (VIAL/SYRINGE) IV PRN (10:15)
[2022-06-29] MEDS ORDERED: LORazepam 1 MG (ATIVAN) TAB SL PRN (10:15)
[2022-06-29] MEDS ORDERED: RT-ALBUTEROL/IPRATROPIUM 3 ML (DUONEB) VIAL INH PRN (10:15)
[2022-06-29] MEDS ORDERED: ONDANSETRON 4 MG/2 ML (SDV) Z0FRAN IVP PRN (10:15)
[2022-06-29] MEDS ORDERED: BISACODYL 10 MG SUPP (DULCOLAX) PR PRN (10:15)
[2022-06-29] MEDS ORDERED: ARTIFICAL TEARS 0.4 ML UNIT DOSE (REFRESH PLUS) OU PRN (10:15)
[2022-06-29] MEDS ORDERED: PROMETHAZINE INJ 25 MG/ML (PHENERGAN) AMP IVP PRN (10:15)
[2022-06-29] MEDS ORDERED: SCOPOLAMINE 1.5 MG (TRANSDERM-SCOP) PATCH TOP SCH (10:15)
[2022-06-29] MEDS ORDERED: ATROPINE 1% OPHTHALMIC SOLN 2 ML SL PRN (10:15)
[2022-06-29] MEDS ORDERED: GLYCOPYRROLATE 0.2 MG/ML (ROBINUL) 2 ML VIAL IV PRN (10:15)
[2022-06-29] MEDS ORDERED: LORazepam ORAL CONCENTRATE 2 MG/ML 30 ML (ATIVAN) PO PRN (10:15)
[2022-06-29] MEDS ORDERED: ACETAMINOPHEN 650 MG SUPP (TYLENOL) PR PRN (10:15)
[2022-06-29] MEDS ORDERED: SALIVA STIMULANT MOUTH SPRAY (BIOTENE) 1.5 OZ MM PRN (10:15)
--- NOTE | 2022-06-29 11:11 | Discharge Summary ---
Discharge Summary Date of Admission Jun 25, 2022 at 12:52 Date of Discharge Admission Diagnosis Pleural effusion and newly diagnosed widely metastatic disease Comfort Measures/ End of Life Care: Comfort Measures Patient was admitted to the hospital secondary to acute hypoxic respiratory failure from malignant pleural effusion. She was diagnosed with widely metastatic disease on admission with unknown primary. She developed atrial fibrillation with rapid ventricular rate and was transferred to the ICU for Cardizem. She underwent thoracentesis with 1.8 L removed and this was sent for cytology. She continued to worsen and after multiple discussions with her she was made a DNR. She ultimately herself requested Vapotherm to be removed and to initiate comfort care. Her was in agreement with this. She was placed on comfort care measures and passed quickly with her family at her bedside. Discharge Diagnosis Acute hypoxic respiratory failure Pleural effusion MAT protocol Now on Vapotherm, wean as able Thoracentesis 06/27 with 1.8L removed and sent for cytology TeleICU consulted, appreciate recs Widely metastatic disease Pleural effusion (likely malignant) Liver masses Spleen masses Bony metastatic disease (T10 and L1) Cachexia Imaging and symptoms consistent with advanced cancer Discussed with patient and imaging findings s/p thoracentesis Discussed with Dr Vasquez 06/26 and as in neurovascularly intact will need outpatient follow up Monitor closely given L1 fracture Will need oncology consult- prefers to see someone local (has previously follow with [facility] for hepatology) Lactic acidosis elevated- not sepsis- unable to clear due to liver disease Atrial fibrillation with RVR Cardiology consulted, appreciate recs Echo with preserved EF Hold Lovenox due to thrombocytopenia telemetry Continued cardizem Anemia of chronic disease Hgb down to 7.3 this AM Transfuse if under 7 DVT ppx: SCDs only due to thrombocytopenia Return to room around 1030 to discuss with patient's prognosis as she has had short runs of V. tach on telemetry. We discussed the extent of her cancer and her body's response to this with multiorgan failure. Discussed the risk and benefits of CPR in the event of cardiac arrest and that it would very likely be futile. He expressed understanding and stated he did not want her to suffer should her heart stop. He elected to make her DNR. Order placed. [facility] Manager contacted and in route to offer support to patient and her . 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
--- NOTE | 2022-06-30 11:08 | Physician Query Clarification ---
PQ-Conflicting Diagnosis Admission/Discharge Admission Date: Jun 25, 2022 at 12:52 Discharge Date: Jun 29, 2022 at 10:45 Dr. Burton, The medical record reflects the following clinical scenario: History/Risk Factors: acute hypoxic respiratory failure, malignant pleural effusion Clinical Findings: Pleural-based metastases are also seen within the right lung with associated large right-sided pleural effusion. Treatment: thoracentesis, vapotherm Question: Do you agree with the impression of the probable metastatic disease of unknown primary (lung suspected) per Dr. Dominguez. Please document a response in Progress Note or Discharge Summary. 1. Yes 2. No 3. Other, with explanation of clinical findings 4. Clinically undetermined, no explanation for clinical findings. PHYSICIAN RESPONSE Do you agree w/Consulting Dx?: Yes Explanation of clincal finding Likely lung primary In responding to this query, please exercise your independent professional judgment. The purpose of this communication is to more accurately reflect the complexity of your patients condition. The fact that a question is asked does not imply that any particular answer is desired or expected. Thank you for your timely response to this clarification. Requestors name: Ana THIS PHYSICIAN QUERY FORM IS A PERMANENT PART OF THE MEDICAL RECORD ANA ALEXANDRE Jun 30, 2022 11:08 GIBRAN BURTON MD Jul 01, 2022 16:45
[2022-07-02] MEDS ORDERED: SCOPOLAMINE PATCH REMOVAL TP SCH (10:14)
== END 2022-06-29 10:45 | disposition expired | DRG 180 ==
LOC: EDUNIT# 09:49 → ER 09:50 → 4TH 12:52 → ICU 06-26 02:35
PROVIDERS: ADMIT Family Medicine; ATTEND Family Medicine
PROC: 0W993ZX Drainage of Right Pleural Cavity, Percutaneous Approach, Diagnostic (ICD-10-PCS; principal; 2022-06-27)
PROC: 5A0945A Assistance with Respiratory Ventilation, 24-96 Consecutive Hours, High Flow/Velocity Cannula (ICD-10-PCS; 2022-06-27)
DX: C34.90 Malignant neoplasm of unspecified part of unspecified bronchus or lung (principal); J96.01 Acute respiratory failure with hypoxia; I47.2 Ventricular tachycardia; N17.9 Acute kidney failure, unspecified; G93.40 Encephalopathy, unspecified; R64 Cachexia; Z66 Do not resuscitate; Z51.5 Encounter for palliative care; Z68.1 Body mass index [BMI] 19.9 or less, adult; J91.0 Malignant pleural effusion; C78.7 Secondary malignant neoplasm of liver and intrahepatic bile duct; C79.51 Secondary malignant neoplasm of bone; C78.89 Secondary malignant neoplasm of other digestive organs; C77.1 Secondary and unspecified malignant neoplasm of intrathoracic lymph nodes; C77.2 Secondary and unspecified malignant neoplasm of intra-abdominal lymph nodes; E83.52 Hypercalcemia; D69.6 Thrombocytopenia, unspecified; I10 Essential (primary) hypertension; K59.00 Constipation, unspecified; J44.9 Chronic obstructive pulmonary disease, unspecified; I48.91 Unspecified atrial fibrillation; D63.8 Anemia in other chronic diseases classified elsewhere; R74.01 Elevation of levels of liver transaminase levels; F41.9 Anxiety disorder, unspecified; Z87.891 Personal history of nicotine dependence; Z79.82 Long term (current) use of aspirin; Z88.6 Allergy status to analgesic agent
CPT/HCPCS: 36415; 71045; 71260; 74177; 80048; 80053; 80162; 81000; 82140; 82947; 83605; 83690; 83735; 84100; 85025; 85027; 85610; 85730; 86850; 86900; 86901; 87040; 87081; 88112; 88305; 88341; 88342; 88344; 93005; 93306; 94640; 94760